=== PATIENT | male | born 1955 | race Caucasian/White ===

== ENCOUNTER 2020-07-31 12:46 | Emergency (ER) | payer BC, SELFPAY ==
--- NOTE | 2020-07-31 | XR_ITS ---
EXAMINATION: XR CHEST CLINICAL INFORMATION: Hypertension COMPARISON: None TECHNIQUE: 2 views of the chest were obtained. FINDINGS: The cardiac silhouette is upper normal in size. The thoracic aorta is tortuous and may be ectatic. Hilar and mediastinal contours are otherwise unremarkable. The lungs are clear. There is no pleural effusion or pneumothorax. There are degenerative changes of the spine. XR/XR chest 2V IMPRESSION: Upper normal-size cardiac silhouette. Tortuous and possibly ectatic thoracic aorta.
[2020-07-31 12:58] VITALS: BP 227/119; PULSE 59; RESP 18; TEMP 36.1; O2SAT 99; BMI 35.9
--- NOTE | 2020-07-31 13:09 | ECG_ITS ---
Test Reason : htn Blood Pressure : / mmHG Vent. Rate : 071 BPM Atrial Rate : 071 BPM P-R Int : 160 ms QRS Dur : 080 ms QT Int : 412 ms P-R-T Axes : 061 041 074 degrees QTc Int : 447 ms Normal sinus rhythm Normal ECG When compared with ECG of 23-DEC-2010 09:15, T wave amplitude has decreased in Lateral leads Referred By: Generic ED Physician Electronically Signed By:ARABELLA NOBLE
[2020-07-31 17:31] VITALS: BP 225/106; PULSE 65; RESP 16; TEMP 37; O2SAT 97
--- NOTE | 2020-07-31 18:00 | CT_ITS ---
EXAMINATION: CT HEAD WITHOUT CONTRAST CLINICAL INFORMATION: Hypertensive COMPARISON: None TECHNIQUE: Contiguous axial imaging was performed from the skull base to vertex without intravenous administration of contrast. This CT examination was performed using dose optimization techniques as appropriate, variously including the following: *Automated exposure control *Adjustment of mA and/or kV according to patient size (this includes techniques or standardized protocols for targeted exams where dose is matched to indication/reason for exam; i.e. extremities or head) *Use of iterative reconstruction technique DLP: 656 mGy-cm FINDINGS: There is no evidence of acute intracranial hemorrhage or territorial infarction. No abnormal mass effect or midline shift is seen. Muir to white matter differentiation is well preserved. No extra-axial fluid collections are identified. The ventricles are normal in size. There is no abnormal attenuation within the brain parenchyma. The osseous structures and soft tissues are normal. Tiny mucosal retention cyst of the left maxillary sinus is partially visualized. The mastoid air cells and visualized portions of the paranasal sinuses are otherwise well aerated. CT/CT head/brain wo con IMPRESSION: No acute intracranial pathology.
--- NOTE | 2020-07-31 18:03 | ED.GENADULT ---
HPI - General Adult General Chief complaint: General Medical Stated complaint: HBP Time Seen by Provider: 07/31/20 17:50 Source: patient Mode of arrival: ambulatory Limitations: no limitations History of Present Illness HPI narrative: Patient presents to ED for elevated blood pressure. Patient states left-sided headache for 3 months and this morning he went to his PCP and blood pressures over 200. Patient is compliant with his carvedilol and lisinopril. His PCP sent amlodipine to the pharmacy for him to start today but patient did not get in time. Patient denies any slurred speech, loss of vision, blurry vision, facial droop, paralysis of extremities, chest pain, shortness of breath, dizziness, or recent any head trauma. Related Data Home Medications Medication Instructions Recorded Confirmed carvedilol 25 mg tablet 25 mg PO BID 07/31/20 lisinopril 40 mg tablet 40 mg PO BID 07/31/20 pravastatin 40 mg tablet 40 mg PO DAILY 07/31/20 Previous Rx's Medication Instructions Recorded indomethacin 25 mg capsule 25 mg PO BID PRN 90 Days #180 cap 06/01/20 allopurinol 300 mg tablet 300 mg PO DAILY #30 tab 07/04/20 furosemide 20 mg tablet 20 mg PO DAILY 90 Days #90 tab 07/04/20 amlodipine 10 mg tablet 10 mg PO DAILY 30 Days #30 tab 07/31/20 hydralazine 25 mg tablet 25 mg PO TID 30 Days #90 tab 07/31/20 Allergies Allergy/AdvReac Type Severity Reaction Status Date / Time No Known Allergies Allergy Verified 07/31/20 09:51 Review of Systems Constitutional: Constitutional: Reports as per HPI, Reports no additional constitutional complaints and Reports headache(s) Eyes: Eyes: Reports as per HPI and Reports no additional eye complaints ENT: Reports system reviewed and no additional complaints, except as documented, Reports as per HPI and Reports headache(s) Cardiovascular: Cardiovascular: Reports as per HPI and Reports no additional cardiovascular complaints Respiratory: Respiratory: Reports as per HPI and Reports no additional respiratory complaints Gastrointestinal: Gastrointestinal: Reports as per HPI and Reports no additional gastrointestinal complaints Genitourinary: Genitourinary: Reports no additional male genitourinary complaints and Reports as per HPI Musculoskeletal: Musculoskeletal: Reports no additional musculoskeletal complaints and Reports as per HPI Neurologic: Reports system reviewed and no additional complaints, except as documented, Reports as per HPI and Reports headache(s) Psychiatric: Psychiatric: Reports no additional psychiatric complaints and Reports as per HPI ON LICENSE OF [facility] Past Medical History Medical History Afib Arthritis Headache Hypertension, essential Social History Social History Alcohol intake: never Smoked in Last 30 Days: No Advance Directives: No Advance Directives Information Provided: Yes Physical Exam Vital Signs: Vital Signs: Last Vital Signs Temp 98.7 F 07/31/20 19:32 Pulse 69 07/31/20 19:32 Resp 16 07/31/20 19:32 BP 155/97 H 07/31/20 19:32 Pulse Ox 97 07/31/20 19:32 Body Mass Index 35.9 Const: General: cooperative, healthy appearing, comfortable, no acute distress, well developed, alert, awake and Physically active HENMT: Head: Yes normal to inspection, Yes No palpable skull fracture present, Yes normocephalic, Yes atraumatic, No Acrocyanosis present, No Oliveira's sign, No contusion, No cranial bruits, No hematoma, No laceration, No occipital foramen tenderness, No palpable skull fracture, No raccoon eyes, No scalp tenderness, No Temporal artery tenderness present and No periorbital ecchymosis Eyes: Other: Negative photophobia General: appearance normal, both eyes and all related structures Neck: Neck: Yes normal visual inspection, Yes full ROM, Yes no lymphadenopathy, Yes no meningeal signs, Yes trachea midline, Yes supple and No tender Chest: Chest palpation & inspection: normal inspection of the chest and normal palpation of entire chest wall Breast/axilla inspection: normal inspection of the breasts Resp: Effort & Inspection: normal respiratory effort and able to speak in complete sentences Auscultation: clear to auscultation bilaterally Cardio: Jugular venous distension: no JVD Heart sounds: S1 normal heart sound present and S2 normal heart sound present GI: Inspection: Yes normal to inspection and No abdominal wall ecchymosis Palpation (GI): Soft to palpation, not firm, nontender, no guarding and not rigid : General: No CVA tenderness and Yes no CVA tenderness Back/Spine/Pelvis: Back: no CVA tenderness, No CVA tenderness and No back tenderness Skin: General skin exam: no rashes or lesions noted and elasticity normal Neuro: Other: Negative slurred speech. Negative for facial droop. Negative pronator drift. All extremity strength equal and 5+. Negative for any neuro deficit. Rapid hand movement and [id number] test is intact. Negative Romberg. General: patient oriented x3, gait normal, no meningeal signs and CN's II-XI intact bilaterally Cranial nerves: Yes CN's II-XII intact bilaterally Course Course Course Narrative: Patient will have labs to rule out hypertensive emergency. Troponin will be sent, chemistry will be evaluated for renal function, and patient will be sent for head CT to make sure there is no bleed or stroke. Negative for any neuro deficit. Reevaluation(s) Reevaluation #1: Patient's blood pressure improved with clonidine. Negative for any neuro deficit. Head CT scan negative for any stroke or bleed. Troponins not increased by 50%. Headache improved after blood pressure is controlled. Negative for any kidney injury. Time: 22:[address] [facility] Narrative Medical decision making narrative: Hypertension Lab Data Result diagrams: 07/31/20 17:57 07/31/20 17:57 Labs: Lab Results 07/31/20 07/31/20 07/31/20 Range/Units 17:57 17:57 17:57 WBC 5.3 (4.8-10.8) X10*3/uL RBC 4.05 L (4.60-5.80) X10*6/uL Hgb 13.4 L (14.0-18.0) g/dl Hct 39.0 L (42-52) % MCV 96.3 (80-98) fL MCH 33.1 H (27.0-33.0) pg MCHC 34.4 (31.0-36.0) g/dl RDW 12.3 (11.0-16.0) % Plt Count 149 L (160-400) X10*3/uL MPV 9.8 (9.4-12.4) fL Immature Gran % (Auto) 0.2 (0.0-0.4) % Neut % (Auto) 56.2 (45-73) % Lymph % (Auto) 34.0 (20-40) % Sevier % (Auto) 7.9 (2-11) % Eos % (Auto) 1.3 (0-4) % Baso % (Auto) 0.4 (0-2) % Lymph # (Auto) 1.8 (1.2-4.9) X10*3/uL Sevier # (Auto) 0.4 (0.1-1.2) X10*3/uL Eos # (Auto) 0.1 (0.0-0.4) X10*3/uL Baso # (Auto) 0.0 (0.0-0.2) X10*3/uL Abs Immat Gran (auto) 0.01 (0.00-0.03) X10*3/uL Absolute Neuts (auto) 3.0 (2.0-8.3) X10*3/uL Absolute Nucleated RBC 0.000 (0.0-0.012) X10*3/uL Nucleated RBC % (auto) 0.0 (0.0-0.2) /100WBC PT 12.0 (10.8-13.0) SEC INR 1.0 (0.9-1.1) APTT 35.4 (24.1-38.0) SEC Hold Blue Top SEE NOTE Sodium 143 (135-145) mmol/L Potassium 3.5 (3.3-5.1) mmol/l Chloride 104 (96-108) mmol/L Carbon Dioxide 32 H (22-29) mmol/L Anion Gap 11 L (12-20) BUN 18 H (9-16) mg/dL Creatinine 1.28 (0.5-1.4) mg/dL Estim Creat Clear Calc 66.9 Estimated GFR 57 Random Glucose 124 H (60-115) mg/dL Calcium 9.0 (8.4-10.2) mg/dL Troponin I High Sens (<3.5-35.0) ng/L Urine Color Urine Appearance Urine pH (5.0-8.0) Ur Specific Wadsworth (1.005-1.025) Urine Protein (NEG-TRACE) MG/DL Urine Glucose (UA) (NEG) MG/DL Urine Ketones (NEG) MG/DL Urine Blood (NEG) Urine Nitrite (NEG) Ur Leukocyte Esterase (NEG) Urine RBC (0) /HPF Urine WBC (0-4) /HPF Ur Squamous Epith Cells /LPF Urine Bacteria /LPF 1207/31/20 07/31/20 Range/Units 17:57 18:09 21:08 WBC (4.8-10.8) X10*3/uL RBC (4.60-5.80) X10*6/uL Hgb (14.0-18.0) g/dl Hct (42-52) % MCV (80-98) fL MCH (27.0-33.0) pg MCHC (31.0-36.0) g/dl RDW (11.0-16.0) % Plt Count (160-400) X10*3/uL MPV (9.4-12.4) fL Immature Gran % (Auto) (0.0-0.4) % Neut % (Auto) (45-73) % Lymph % (Auto) (20-40) % Sevier % (Auto) (2-11) % Eos % (Auto) (0-4) % Baso % (Auto) (0-2) % Lymph # (Auto) (1.2-4.9) X10*3/uL Sevier # (Auto) (0.1-1.2) X10*3/uL Eos # (Auto) (0.0-0.4) X10*3/uL Baso # (Auto) (0.0-0.2) X10*3/uL Abs Immat Gran (auto) (0.00-0.03) X10*3/uL Absolute Neuts (auto) (2.0-8.3) X10*3/uL Absolute Nucleated RBC (0.0-0.012) X10*3/uL Nucleated RBC % (auto) (0.0-0.2) /100WBC PT (10.8-13.0) SEC INR (0.9-1.1) APTT (24.1-38.0) SEC Hold Blue Top Sodium (135-145) mmol/L Potassium (3.3-5.1) mmol/l Chloride (96-108) mmol/L Carbon Dioxide (22-29) mmol/L Anion Gap (12-20) BUN (9-16) mg/dL Creatinine (0.5-1.4) mg/dL Estim Creat Clear Calc Estimated GFR Random Glucose (60-115) mg/dL Calcium (8.4-10.2) mg/dL Troponin I High Sens 12.6 13.8 (<3.5-35.0) ng/L Urine Color STRAW Urine Appearance CLEAR Urine pH 7.5 (5.0-8.0) Ur Specific Wadsworth 1.010 (1.005-1.025) Urine Protein NEG (NEG-TRACE) MG/DL Urine Glucose (UA) NEG (NEG) MG/DL Urine Ketones NEG (NEG) MG/DL Urine Blood TRACE (NEG) Urine Nitrite NEG (NEG) Ur Leukocyte Esterase NEG (NEG) Urine RBC 0-2 (0) /HPF Urine WBC 0 (0-4) /HPF Ur Squamous Epith Cells NONE /LPF Urine Bacteria NONE /LPF ECG Data Interpretation: Normal sinus rhythm. Normal EKG. Ventricular rate 71. Pr interval 180. QRS 80. QTC 447. Negative STEMI Discharge Plan Discharge Clinical Impression: Hypertension, essential Patient Disposition: Home, Self-Care Instructions: Hypertension (ED) Additional Instructions: Return to the ED immediately for any chest pain, shortness of breath, loss of vision, slurred speech, weakness of extremities, numbness, dizziness, worsening headache, or any other concerning symptoms. Prescriptions: No Action indomethacin 25 mg capsule 25 mg PO BID PRN (Reason: pain) 90 Days Qty: 180 RF: 1 allopurinol 300 mg tablet 300 mg PO DAILY Qty: 30 RF: 2 furosemide 20 mg tablet 20 mg PO DAILY 90 Days Qty: 90 RF: 1 lisinopril 40 mg tablet 40 mg PO BID RF: 0 pravastatin 40 mg tablet 40 mg PO DAILY RF: 0 carvedilol 25 mg tablet 25 mg PO BID RF: 0 hydralazine 25 mg tablet 25 mg PO TID 30 Days Qty: 90 RF: 0 amlodipine 10 mg tablet 10 mg PO DAILY 30 Days Qty: 30 RF: 0 Referrals: Maged Coughlin, HIGH [employer]CHO[employer]AGE [employer]UTOR-BC [Primary Care Provider] - 2 days (Elevated high blood pressure. Head CT scan negative for stroke. Troponins were negative. Kidney function normal.) Interventions: ED Discharge Assessment Last Done: 07/31/20 22:43 Discharge Date/Time: 07/31/20 22:46 Print Language: Belarusian
[2020-07-31 18:09] LABS: MANUAL DIFF FLAG NO
[2020-07-31 18:11] VITALS: BP 210/113; PULSE 68
[2020-07-31] MEDS: cloNIDine HCL 0.2 MG TABLET PO (18:11)
[2020-07-31 18:13] LABS: Basophils Percent Auto 0.4 % (0-2); Eosinophils Absolute Auto 0.1 X10*3/uL (0.0-0.4); Eosinophils Percent Auto 1.3 % (0-4); Hemoglobin 13.4 g/dl (14.0-18.0); Imm Gran Abs Auto 0.01 X10*3/uL (0.00-0.03); Imm Gran Pct Auto 0.2 % (0.0-0.4); Lymphocytes Absolute Auto 1.8 X10*3/uL (1.2-4.9); Mean Corpuscular HGB Conc 34.4 g/dl (31.0-36.0); Mean Corpuscular Hemoglobin 33.1 pg (27.0-33.0); Mean Corpuscular Volume 96.3 fL (80-98); Mean Platelet Volume 9.8 fL (9.4-12.4); Monocytes Absolute Auto 0.4 X10*3/uL (0.1-1.2); Monocytes Percent Auto 7.9 % (2-11); Neutrophils Percent Auto 56.2 % (45-73); Platelet Count 149 X10*3/uL (160-400); Red Blood Count 4.05 X10*6/uL (4.60-5.80); Red Cell Distribution Width 12.3 % (11.0-16.0); White Blood Count 5.3 X10*3/uL (4.8-10.8)
[2020-07-31 18:15] LABS: Partial Thromboplastin Time 35.4 SEC (24.1-38.0)
[2020-07-31 18:16] LABS: Glucose Urine UA NEG (NEG); Leukocyte Esterase Urine NEG (NEG); Nitrite Urine NEG (NEG); PH 7.5 (5.0-8.0); Urine Blood TRACE (NEG); Urine Ketones NEG (NEG); Urine Protein NEG (NEG-TRACE)
[2020-07-31 18:17] LABS: Appearance Urine CLEAR; Color Urine STRAW
[2020-07-31 18:22] LABS: RBC Urine 0-2 /HPF (0); WBC Urine 0 /HPF (0-4)
[2020-07-31 18:30] LABS: Anion Gap 11 (12-20); Blood Urea Nitrogen 18 mg/dL (9-16); Carbon Dioxide 32 mmol/L (22-29); Chloride 104 mmol/L (96-108); Creatinine Clr Calc Pharmacy 66.9; Estimated Glomerular Filt Rate 57; Glucose Random 124 mg/dL (60-115); Potassium 3.5 mmol/l (3.3-5.1); Sodium 143 mmol/L (135-145)
[2020-07-31 18:37] LABS: Troponin-I High Sensitivity 12.6 ng/L (<3.5-35.0)
[2020-07-31 19:32] VITALS: BP 155/97; PULSE 69; RESP 16; TEMP 37.1; O2SAT 97
[2020-07-31 21:58] LABS: Troponin-I High Sensitivity 13.8 ng/L (<3.5-35.0)
== END 2020-07-31 22:46 | disposition home or self-care (01) ==
PROVIDERS: Physician Assistant; Emergency Provider Emergency Medicine; PCP Nurse Practitioner Family
DX: R51.9 Headache, unspecified (principal); I10 Essential (primary) hypertension; Z79.899 Other long term (current) drug therapy
CPT/HCPCS: 36415; 70450; 71046; 80048; 81001; 84484; 85025; 85610; 85730; 93005; 99284

== ENCOUNTER 2020-11-13 11:59 | Outpatient (REF) | payer BC, SELFPAY ==
[2020-11-13 13:50] LABS: MANUAL DIFF FLAG NO
[2020-11-13 13:53] LABS: Basophils Percent Auto 0.4 % (0-2); Eosinophils Absolute Auto 0.1 X10*3/uL (0.0-0.4); Eosinophils Percent Auto 1.2 % (0-4); Hematocrit 36.9 % (42-52); Imm Gran Abs Auto 0.01 X10*3/uL (0.00-0.03); Imm Gran Pct Auto 0.2 % (0.0-0.4); Lymphocytes Absolute Auto 1.8 X10*3/uL (1.2-4.9); Lymphocytes Percent Auto 35.6 % (20-40); Mean Corpuscular HGB Conc 35.2 g/dl (31.0-36.0); Mean Corpuscular Hemoglobin 33.7 pg (27.0-33.0); Mean Corpuscular Volume 95.6 fL (80-98); Mean Platelet Volume 10.5 fL (9.4-12.4); Monocytes Absolute Auto 0.5 X10*3/uL (0.1-1.2); Monocytes Percent Auto 9.6 % (2-11); Neutrophils Absolute Auto 2.6 X10*3/uL (2.0-8.3); Platelet Count 157 X10*3/uL (160-400); Red Blood Count 3.86 X10*6/uL (4.60-5.80); Red Cell Distribution Width 12.8 % (11.0-16.0); White Blood Count 4.9 X10*3/uL (4.8-10.8)
[2020-11-13 14:15] LABS: Alanine Aminotransferase 19 U/L (0-40); Albumin Level 4.4 g/dL (3.5-5.0); Alkaline Phosphatase 68 U/L (39-117); Anion Gap 13 (12-20); Aspartate Amino Transferase 15 U/L (5-37); Bilirubin Total 0.9 mg/dL (0.0-1.0); Blood Urea Nitrogen 20 mg/dL (9-16); Calcium 9.1 mg/dL (8.4-10.2); Carbon Dioxide 28 mmol/L (22-29); Chloride 104 mmol/L (96-108); Cholesterol 175 mg/dL; Estimated Glomerular Filt Rate 54; Glucose Fasting 128 mg/dL (60-99); HDL Cholesterol 50 mg/dL; LDL Cholesterol Calculated 101 mg/dl; Potassium 3.9 mmol/L (3.3-5.1); Sodium 141 mmol/L (135-145); Total Protein 6.9 g/dL (6.5-8.0); Triglycerides 121 mg/dL
[2020-11-13 14:28] LABS: Troponin-I High Sensitivity 5.5 ng/L (<3.5-35.0)
== END 2020-11-13 12:00 | disposition home or self-care (01) ==
LOC: HO.HMGCLDS 11:59
PROVIDERS: Family Medicine; PCP Nurse Practitioner Family; Visit Provider Nurse Practitioner Family
DX: Z00.00 Encounter for general adult medical examination without abnormal findings (principal); I10 Essential (primary) hypertension
CPT/HCPCS: 36415; 80048; 80053; 80061; 84443; 84484; 85025

== ENCOUNTER 2020-11-14 11:03 | Outpatient (REF) | payer BC, SELFPAY ==
[2020-11-14 14:26] LABS: Estimated Average Glucose 117 mg/dL; Hemoglobin A1c % 5.7 %
== END 2020-11-14 11:04 | disposition home or self-care (01) ==
LOC: HO.HMGCLDS 11:03
PROVIDERS: Visit Provider Nurse Practitioner Family
DX: R73.01 Impaired fasting glucose (principal)
CPT/HCPCS: 36415; 83036

== ENCOUNTER 2021-12-06 10:11 | Outpatient (REF) | payer BC, SELFPAY ==
[2021-12-06 11:31] LABS: Estimated Average Glucose 128 mg/dL; Hemoglobin A1c % 6.1 %
[2021-12-06 12:03] LABS: Alanine Aminotransferase 25 U/L (0-40); Albumin Level 4.3 g/dL (3.5-5.0); Alkaline Phosphatase 46 U/L (39-117); Anion Gap 13 (12-20); Aspartate Amino Transferase 23 U/L (5-37); Bilirubin Total 0.9 mg/dL (0.0-1.0); Blood Urea Nitrogen 24 mg/dL (9-16); Calcium 9.6 mg/dL (8.4-10.2); Carbon Dioxide 28 mmol/L (22-29); Chloride 104 mmol/L (96-108); Cholesterol 164 mg/dL; Estimated Glomerular Filt Rate 41; Glucose Fasting 134 mg/dL (60-99); HDL Cholesterol 46 mg/dL; LDL Cholesterol Calculated 98 mg/dl; Potassium 3.5 mmol/L (3.3-5.1); Sodium 141 mmol/L (135-145); Total Protein 6.7 g/dL (6.5-8.0); Triglycerides 103 mg/dL
== END 2021-12-06 10:12 | disposition home or self-care (01) ==
LOC: HO.HMGCLDS 10:11
PROVIDERS: PCP Nurse Practitioner Family; Visit Provider Nurse Practitioner Family
DX: R73.01 Impaired fasting glucose (principal); I10 Essential (primary) hypertension
CPT/HCPCS: 36415; 80053; 80061; 83036

== ENCOUNTER 2021-12-10 10:43 | Outpatient (REF) | payer BC, SELFPAY ==
[2021-12-10 11:49] LABS: Blood Urea Nitrogen 25 mg/dL (9-16); Estimated Glomerular Filt Rate 41
== END 2021-12-10 10:44 | disposition home or self-care (01) ==
LOC: HO.HMGCLDS 10:43
PROVIDERS: PCP Nurse Practitioner Family; Visit Provider Nurse Practitioner Family
DX: R79.89 Other specified abnormal findings of blood chemistry (principal)
CPT/HCPCS: 36415; 82565; 84520

== ENCOUNTER 2021-12-26 11:08 | Outpatient (REF) | payer BC, SELFPAY ==
[2021-12-26 13:58] LABS: MANUAL DIFF FLAG NO
[2021-12-26 14:01] LABS: Basophils Percent Auto 0.4 % (0-2); Eosinophils Absolute Auto 0.1 X10*3/uL (0.0-0.4); Eosinophils Percent Auto 1.1 % (0-4); Hematocrit 35.5 % (42.0-52.0); Hemoglobin 12.1 g/dl (14.0-18.0); Imm Gran Abs Auto 0.01 X10*3/uL (0.00-0.03); Imm Gran Pct Auto 0.2 % (0.0-0.4); Lymphocytes Absolute Auto 1.5 X10*3/uL (1.2-4.9); Lymphocytes Percent Auto 32.8 % (20-40); Mean Corpuscular HGB Conc 34.1 g/dl (31.0-36.0); Mean Corpuscular Hemoglobin 33.1 pg (27.0-33.0); Mean Platelet Volume 9.9 fL (9.4-12.4); Monocytes Absolute Auto 0.4 X10*3/uL (0.1-1.2); Monocytes Percent Auto 7.8 % (2-11); Neutrophils Absolute Auto 2.7 x10*3/uL (2.0-8.3); Neutrophils Percent Auto 57.7 % (45-73); Platelet Count 160 X10*3/uL (160-400); Red Blood Count 3.66 X10*6/uL (4.60-5.80); Red Cell Distribution Width 12.4 % (11.0-16.0); White Blood Count 4.6 X10*3/uL (4.8-10.8)
[2021-12-26 14:03] LABS: Appearance Urine CLEAR; Color Urine YELLOW; Glucose Urine UA NEG (NEG); Leukocyte Esterase Urine NEG (NEG); Nitrite Urine NEG (NEG); Specific Gravity - Urine <= 1.005 (1.005-1.025); Urine Blood NEG (NEG); Urine Ketones NEG (NEG); Urine Protein NEG (NEG-TRACE)
[2021-12-26 14:13] LABS: RBC Urine 0-2 /HPF (0); WBC Urine 0-2 /HPF (0-4)
[2021-12-26 14:17] LABS: Albumin Level 4.2 g/dL (3.5-5.0); Anion Gap 11 (12-20); Blood Urea Nitrogen 26 mg/dL (9-16); Calcium 9.4 mg/dL (8.4-10.2); Carbon Dioxide 27 mmol/L (22-29); Chloride 104 mmol/L (96-108); Estimated Glomerular Filt Rate 38; Magnesium 2.3 mg/dL (1.6-2.6); Phosphorus 3.2 mg/dL (2.7-4.5); Potassium 4.1 mmol/L (3.3-5.1); Sodium 138 mmol/L (135-145)
[2021-12-26 14:32] LABS: Vitamin D 25-OH Total 23.9 ng/mL (>30)
[2021-12-26 14:34] LABS: Creatinine Urine 62.13 mg/dL; Total Protein Urine Random < 7 mg/dL (<12)
[2021-12-27 04:51] LABS: HBS Num1 18.88 mIU/mL (0-7.99); HBc Num1 0.15 S/CO (0.00-0.79); HBsAGNum1 0.18 S/CO (0.00-0.99); Hepatitis B Core Antibody Nonreactive (Nonreactive); Hepatitis B Surface Antigen Negative (Negative); ~HepC Num1 0.16 S/CO (0.00-0.79); ~Hepatitis B Surface Antibody REACTIVE (Nonreactive); ~Hepatitis C Antibody Nonreactive (Nonreactive)
[2021-12-27 14:21] LABS: Calcium (PTHI) 9.3 mg/dL (8.6-10.3); PTHI 85 pg/mL (16-77)
[2021-12-27 17:21] LABS: Complement C3 69 mg/dL (82-185)
[2021-12-30 15:21] LABS: Prot Elec - Albumin 4.5 g/dL (3.8-4.8); Prot Elec - Alpha1 0.3 g/dL (0.2-0.3); Prot Elec - Alpha2 0.5 g/dL (0.5-0.9); Prot Elec - Beta 1 0.4 g/dL (0.4-0.6); Prot Elec - Beta 2 0.3 g/dL (0.2-0.5); Prot Elec - Gamma 0.9 g/dL (0.8-1.7); Prot Elec - Total Protein 6.8 g/dL (6.1-8.1)
[2021-12-31 23:52] LABS: Anti Nuclear Antibody Screen POSITIVE (NEGATIVE)
[2022-01-02 13:12] LABS: Kappa, Serum 214 mg/dL (176-443); Kappa/Lambda Ratio, Serum 1.48 (1.29-2.55); Lambda, Serum 145 mg/dL (91-240)
== END 2021-12-26 11:09 | disposition home or self-care (01) ==
LOC: HO.HMGCLDS 11:08
PROVIDERS: PCP Nurse Practitioner Family; Visit Provider Internal Medicine Nephrology
DX: I12.9 Hypertensive chronic kidney disease with stage 1 through stage 4 chronic kidney disease, or unspecified chronic kidney disease (principal); N18.32 Chronic kidney disease, stage 3b
CPT/HCPCS: 36415; 80051; 81001; 82040; 82043; 82306; 82310; 82565; 83735; 83883; 83970; 84100; 84156; 84165; 84520; 85025; 86038; 86039; 86160; 86704; 86706; 86803; 87086; 87340

== ENCOUNTER 2022-01-02 14:51 | Outpatient (REF) | payer BC, SELFPAY ==
[2022-01-02 16:22] LABS: MANUAL DIFF FLAG NO
[2022-01-02 16:24] LABS: Basophils Percent Auto 0.2 % (0-2); Eosinophils Absolute Auto 0.1 X10*3/uL (0.0-0.4); Hematocrit 34.3 % (42.0-52.0); Hemoglobin 11.6 g/dl (14.0-18.0); Imm Gran Abs Auto 0.01 X10*3/uL (0.00-0.03); Imm Gran Pct Auto 0.2 % (0.0-0.4); Lymphocytes Absolute Auto 1.3 X10*3/uL (1.2-4.9); Lymphocytes Percent Auto 25.9 % (20-40); Mean Corpuscular HGB Conc 33.8 g/dl (31.0-36.0); Mean Corpuscular Volume 97.7 fL (80.0-98.0); Mean Platelet Volume 10.2 fL (9.4-12.4); Monocytes Absolute Auto 0.4 X10*3/uL (0.1-1.2); Monocytes Percent Auto 8.4 % (2-11); Neutrophils Absolute Auto 3.2 x10*3/uL (2.0-8.3); Neutrophils Percent Auto 64.3 % (45-73); Platelet Count 146 X10*3/uL (160-400); Red Blood Count 3.51 X10*6/uL (4.60-5.80); Red Cell Distribution Width 12.5 % (11.0-16.0)
[2022-01-02 16:40] LABS: Iron 126 mcg/dL (45-160); Percent Iron Saturation 43 % (15-50); Total Iron Binding Capacity 292 mcg/dL (228-428); Unsaturated Iron Binding 166 ug/dL
[2022-01-02 17:00] LABS: Ferritin 110 ng/mL (20-250)
[2022-01-02 17:15] LABS: Folate 9.6 ng/mL (> or = 4.0); Vitamin B12 207 pg/mL (200-900)
== END 2022-01-02 14:52 | disposition home or self-care (01) ==
LOC: HO.HMGCLDS 14:51
PROVIDERS: PCP Nurse Practitioner Family; Visit Provider Nurse Practitioner Family
DX: D64.9 Anemia, unspecified (principal)
CPT/HCPCS: 36415; 82607; 82728; 82746; 83540; 85025

== ENCOUNTER 2022-01-03 16:41 | Outpatient (REF) | payer BC, SELFPAY ==
[2022-01-04 07:48] LABS: FIT Int Ctl YES; FIT1 NEGATIVE (NEGATIVE); FIT2 NEGATIVE (NEGATIVE)
== END 2022-01-03 16:42 | disposition home or self-care (01) ==
LOC: HO.LNP 16:41
PROVIDERS: Visit Provider Nurse Practitioner Family
DX: D64.9 Anemia, unspecified (principal)
CPT/HCPCS: 82274

== ENCOUNTER 2022-03-03 13:48 | Outpatient (REF) | payer BC, SELFPAY ==
[2022-03-03 14:56] LABS: MANUAL DIFF FLAG NO
[2022-03-03 15:06] LABS: Basophils Percent Auto 0.4 % (0-2); Eosinophils Absolute Auto 0.1 X10*3/uL (0.0-0.4); Eosinophils Percent Auto 0.9 % (0-4); Hemoglobin 11.7 g/dl (14.0-18.0); Imm Gran Abs Auto 0.02 X10*3/uL (0.00-0.03); Imm Gran Pct Auto 0.4 % (0.0-0.4); Lymphocytes Absolute Auto 1.9 X10*3/uL (1.2-4.9); Lymphocytes Percent Auto 34.8 % (20-40); Mean Corpuscular HGB Conc 34.4 g/dl (31.0-36.0); Mean Corpuscular Hemoglobin 33.2 pg (27.0-33.0); Mean Corpuscular Volume 96.6 fL (80.0-98.0); Mean Platelet Volume 10.1 fL (9.4-12.4); Monocytes Absolute Auto 0.5 X10*3/uL (0.1-1.2); Monocytes Percent Auto 8.5 % (2-11); Platelet Count 158 X10*3/uL (160-400); Red Blood Count 3.52 X10*6/uL (4.60-5.80); White Blood Count 5.4 X10*3/uL (4.8-10.8)
[2022-03-03 15:56] LABS: Folate 16.1 ng/mL (> or = 4.0); Vitamin B12 284 pg/mL (200-900)
== END 2022-03-03 13:49 | disposition home or self-care (01) ==
LOC: HO.HMGCLDS 13:48
PROVIDERS: PCP Nurse Practitioner Family; Visit Provider Nurse Practitioner Family
DX: D64.9 Anemia, unspecified (principal)
CPT/HCPCS: 36415; 82607; 82746; 85025

== ENCOUNTER 2022-03-20 11:02 | Outpatient (REF) | payer BC, SELFPAY ==
[2022-03-20 14:05] LABS: Estimated Average Glucose 128 mg/dL; Hemoglobin A1c % 6.1 %
[2022-03-20 14:13] LABS: Alanine Aminotransferase 26 U/L (0-40); Albumin Level 4.4 g/dL (3.5-5.0); Alkaline Phosphatase 41 U/L (39-117); Anion Gap 15 (12-20); Aspartate Amino Transferase 19 U/L (5-37); Bilirubin Total 0.8 mg/dL (0.0-1.0); Blood Urea Nitrogen 25 mg/dL (9-16); Calcium 9.2 mg/dL (8.4-10.2); Carbon Dioxide 23 mmol/L (22-29); Chloride 107 mmol/L (96-108); Estimated Glomerular Filt Rate 36; Glucose Fasting 131 mg/dL (60-99); Potassium 4.2 mmol/L (3.3-5.1); Sodium 141 mmol/L (135-145); Total Protein 6.8 g/dL (6.5-8.0)
[2022-03-20 14:29] LABS: TSH reflex Free T4 2.25 uIU/mL (0.32-4.0)
[2022-03-20 14:33] LABS: Appearance Urine Clear; Color Urine Yellow; Glucose Urine UA Negative (Negative); Leukocyte Esterase Urine Negative (Negative); Nitrite Urine Negative (Negative); Specific Gravity - Urine 1.015 (1.005-1.025); Urine Blood Negative (Negative); Urine Ketones Negative (Negative); Urine Protein Negative (Neg-Trace)
== END 2022-03-20 11:03 | disposition home or self-care (01) ==
LOC: HO.HMGCLDS 11:02
PROVIDERS: PCP Nurse Practitioner Family; Visit Provider Family Medicine
DX: Z00.00 Encounter for general adult medical examination without abnormal findings (principal); R73.01 Impaired fasting glucose; R20.0 Anesthesia of skin; R20.2 Paresthesia of skin
CPT/HCPCS: 36415; 80053; 81003; 83036; 84443

== ENCOUNTER 2022-04-16 09:18 | Outpatient (REF) | payer BC, SELFPAY ==
[2022-04-18 04:51] LABS: Prolactin 9.6 ng/mL (2.0-18.0)
== END 2022-04-16 09:19 | disposition home or self-care (01) ==
LOC: HO.LAB 09:18
PROVIDERS: PCP Nurse Practitioner Family; Visit Provider Psychiatry & Neurology Neurology
DX: D35.2 Benign neoplasm of pituitary gland (principal)
CPT/HCPCS: 36415; 84146

== ENCOUNTER 2022-04-22 07:24 | Outpatient (REF) | payer BC, SELFPAY ==
[2022-04-22 11:46] LABS: Appearance Urine Clear; Color Urine Yellow; Glucose Urine UA Negative (Negative); Leukocyte Esterase Urine Negative (Negative); Nitrite Urine Negative (Negative); PH 5.5 (5.0-9.0); Specific Gravity - Urine 1.015 (1.005-1.025); Urine Blood Negative (Negative); Urine Ketones Negative (Negative); Urine Protein Negative (Neg-Trace)
[2022-04-22 11:51] LABS: MANUAL DIFF FLAG NO
[2022-04-22 12:07] LABS: Basophils Percent Auto 0.2 % (0-2); Eosinophils Percent Auto 0.7 % (0-4); Hematocrit 33.1 % (42.0-52.0); Hemoglobin 11.2 g/dl (14.0-18.0); Imm Gran Abs Auto 0.01 X10*3/uL (0.00-0.03); Imm Gran Pct Auto 0.2 % (0.0-0.4); Lymphocytes Absolute Auto 1.8 X10*3/uL (1.2-4.9); Lymphocytes Percent Auto 33.5 % (20-40); Mean Corpuscular HGB Conc 33.8 g/dl (31.0-36.0); Mean Corpuscular Hemoglobin 33.6 pg (27.0-33.0); Mean Corpuscular Volume 99.4 fL (80.0-98.0); Mean Platelet Volume 10.3 fL (9.4-12.4); Monocytes Absolute Auto 0.5 X10*3/uL (0.1-1.2); Monocytes Percent Auto 8.6 % (2-11); Neutrophils Absolute Auto 3.1 x10*3/uL (2.0-8.3); Neutrophils Percent Auto 56.8 % (45-73); Platelet Count 150 X10*3/uL (160-400); Red Blood Count 3.33 X10*6/uL (4.60-5.80); Red Cell Distribution Width 13.2 % (11.0-16.0); White Blood Count 5.5 X10*3/uL (4.8-10.8)
[2022-04-22 12:45] LABS: Alanine Aminotransferase 25 U/L (0-40); Albumin Level 4.3 g/dL (3.5-5.0); Alkaline Phosphatase 39 U/L (39-117); Anion Gap 16 (12-20); Aspartate Amino Transferase 18 U/L (5-37); Bilirubin Total 0.8 mg/dL (0.0-1.0); Blood Urea Nitrogen 30 mg/dL (9-16); Calcium 9.6 mg/dL (8.4-10.2); Carbon Dioxide 24 mmol/L (22-29); Chloride 105 mmol/L (96-108); Cholesterol 158 mg/dL; Estimated Glomerular Filt Rate 38; Glucose Fasting 143 mg/dL (60-99); HDL Cholesterol 43 mg/dL; LDL Cholesterol Calculated 92 mg/dl; Potassium 4.1 mmol/L (3.3-5.1); Sodium 141 mmol/L (135-145); Total Protein 6.5 g/dL (6.5-8.0); Triglycerides 116 mg/dL
== END 2022-04-22 07:25 | disposition home or self-care (01) ==
LOC: HO.HMGCLDS 07:24
PROVIDERS: PCP Nurse Practitioner Family; Visit Provider Nurse Practitioner Family
DX: I10 Essential (primary) hypertension (principal); R79.89 Other specified abnormal findings of blood chemistry; H53.8 Other visual disturbances
CPT/HCPCS: 36415; 80053; 80061; 81003; 84443; 85025

== ENCOUNTER 2022-04-29 09:16 | Outpatient (REF) | payer BC, SELFPAY ==
[2022-04-29 11:32] LABS: Immature Retic Fraction 12.1 % (2.3-13.4); Retic HGB Equivalent 38.8 pg (30.0-35.0); Reticulocyte Percent 2.3 % (0.5-1.8); Reticulocytes Absolute 0.076 X10*6/uL (0.026-0.095)
[2022-04-29 11:50] LABS: Iron 142 mcg/dL (45-160); Percent Iron Saturation 46 % (15-50); Total Iron Binding Capacity 306 mcg/dL (228-428); Unsaturated Iron Binding 164 ug/dL
[2022-04-29 12:12] LABS: Ferritin 134 ng/mL (20-250)
[2022-04-29 12:32] LABS: Folate 15.9 ng/mL (> or = 4.0); Vitamin B12 222 pg/mL (200-900)
== END 2022-04-29 09:17 | disposition home or self-care (01) ==
LOC: HO.HMGCLDS 09:16
PROVIDERS: PCP Nurse Practitioner Family; Visit Provider Nurse Practitioner Family
DX: D64.9 Anemia, unspecified (principal)
CPT/HCPCS: 36415; 82607; 82728; 82746; 83540; 85045

== ENCOUNTER → 2022-07-02 13:05 | Outpatient (BNVA) | payer BC, SELFPAY | PROVIDERS: PCP Nurse Practitioner Family; Referring Provider Nurse Practitioner Family; Visit Provider Internal Medicine Cardiovascular Disease | DX: I48.0 Paroxysmal atrial fibrillation (principal); I10 Essential (primary) hypertension; R06.81 Apnea, not elsewhere classified | CPT/HCPCS: 93005 ==

== ENCOUNTER → 2022-07-15 10:04 | Outpatient (REF) | payer BC, SELFPAY ==
--- NOTE | 2022-07-15 10:10 | HM_ITS ---
Conclusion: 1. Patient was monitored for total period of 14 days and 19 hours 2. Baseline was normal sinus rhythm with average heart of 75 beats per minute 3. Total of 8145 PACs accounting for 0.96% of total beats account for occasional PACs 4. Very rare PVCs noted 5. No significant pauses or bradycardia noted 6. One of the patient reported events correlated with sinus tachycardia MTDD
--- NOTE | 2022-07-15 10:10 | CA_ITS ---
Acquisition Time: 2022-07-15 10:33:31 Total Exercise Time: 00:06:00 Test Indications: Dyspnea AFIB Medications: SEE H Protocol: KONSTANTIN Max HR: 151 BPM 98% of Pred: 154 BPM Max BP: 194/098 mmHG Max Work Load: 7.0 METS Exercise stress test with exercise 6 min of Konstantin protocol, achieving 98% MPHR, 7 METs, with fatigue and request to stop, without anginal symptoms, with isolated PAC and one multifocal ventricular cuplet, with hypertensive response to exercise with max BP 190/104, without EKG changes meeting criteria for ischemia. In recovery BP returned to near baseline. Test reviewed with Dr Harvey. Referred By: Alverto Gray Overread By: ADAN COLLINS
== END ==
LOC: HO.CARD 10:04
PROVIDERS: PCP Nurse Practitioner Family; Visit Provider Internal Medicine Cardiovascular Disease
DX: I48.0 Paroxysmal atrial fibrillation (principal)
CPT/HCPCS: 93017; 93246

== ENCOUNTER → 2022-07-30 09:08 | Outpatient (REF) | payer BC, SELFPAY | LOC: HO.SL 09:08 | PROVIDERS: Visit Provider Internal Medicine Cardiovascular Disease | DX: G47.33 Obstructive sleep apnea (adult) (pediatric) (principal); I48.0 Paroxysmal atrial fibrillation; I10 Essential (primary) hypertension | CPT/HCPCS: 95806 ==

== ENCOUNTER → 2022-08-15 10:41 | Outpatient (BNVA) | payer BC, SELFPAY | PROVIDERS: PCP Nurse Practitioner Family; Referring Provider Nurse Practitioner Family; Visit Provider Internal Medicine Cardiovascular Disease | DX: Z13.89 Encounter for screening for other disorder (principal) ==

== ENCOUNTER → 2022-09-11 15:38 | Outpatient (BNVA) | payer BC, SELFPAY | PROVIDERS: PCP Nurse Practitioner Family; Visit Provider Internal Medicine | DX: Z13.89 Encounter for screening for other disorder (principal) ==

== ENCOUNTER 2022-10-07 10:00 | Outpatient (REF) | payer BC, SELFPAY ==
[2022-10-07 11:39] LABS: MANUAL DIFF FLAG NO
[2022-10-07 11:51] LABS: Basophils Percent Auto 0.4 % (0-2); Eosinophils Absolute Auto 0.1 X10*3/uL (0.0-0.4); Eosinophils Percent Auto 0.9 % (0-4); Hematocrit 33.4 % (42.0-52.0); Hemoglobin 11.3 g/dl (14.0-18.0); Imm Gran Abs Auto 0.01 X10*3/uL (0.00-0.03); Imm Gran Pct Auto 0.2 % (0.0-0.4); Lymphocytes Absolute Auto 1.7 X10*3/uL (1.2-4.9); Lymphocytes Percent Auto 31.7 % (20-40); Mean Corpuscular HGB Conc 33.8 g/dl (31.0-36.0); Mean Corpuscular Hemoglobin 33.8 pg (27.0-33.0); Mean Platelet Volume 9.9 fL (9.4-12.4); Monocytes Absolute Auto 0.5 X10*3/uL (0.1-1.2); Monocytes Percent Auto 8.8 % (2-11); Neutrophils Absolute Auto 3.1 x10*3/uL (2.0-8.3); Platelet Count 143 X10*3/uL (160-400); Red Blood Count 3.34 X10*6/uL (4.60-5.80); Red Cell Distribution Width 12.9 % (11.0-16.0); White Blood Count 5.4 X10*3/uL (4.8-10.8)
[2022-10-07 11:54] LABS: Appearance Urine Clear; Color Urine Yellow; Glucose Urine UA Negative (Negative); Leukocyte Esterase Urine Negative (Negative); Nitrite Urine Negative (Negative); PH 6.5 (5.0-9.0); Urine Blood Negative (Negative); Urine Ketones Negative (Negative); Urine Protein Negative (Neg-Trace)
[2022-10-07 12:06] LABS: Estimated Average Glucose 126 mg/dL
[2022-10-07 12:32] LABS: Alanine Aminotransferase 18 U/L (0-40); Albumin Level 4.5 g/dL (3.5-5.0); Alkaline Phosphatase 42 U/L (39-117); Anion Gap 14 (12-20); Aspartate Amino Transferase 17 U/L (5-37); Bilirubin Total 0.8 mg/dL (0.0-1.0); Blood Urea Nitrogen 37 mg/dL (9-16); Calcium 9.2 mg/dL (8.4-10.2); Carbon Dioxide 28 mmol/L (22-29); Chloride 105 mmol/L (96-108); Cholesterol 179 mg/dL; Estimated Glomerular Filt Rate 35; Glucose Fasting 121 mg/dL (60-99); HDL Cholesterol 47 mg/dL; LDL Cholesterol Calculated 105 mg/dl; Potassium 4.6 mmol/L (3.3-5.1); Sodium 142 mmol/L (135-145); Total Protein 6.7 g/dL (6.5-8.0); Triglycerides 137 mg/dL
[2022-10-07 12:48] LABS: TSH reflex Free T4 2.31 uIU/mL (0.32-4.0)
== END 2022-10-07 10:01 | disposition home or self-care (01) ==
LOC: HO.HMGCLDS 10:00
PROVIDERS: PCP Nurse Practitioner Family; Visit Provider Nurse Practitioner Family
DX: E11.319 Type 2 diabetes mellitus with unspecified diabetic retinopathy without macular edema (principal); I10 Essential (primary) hypertension; D64.9 Anemia, unspecified
CPT/HCPCS: 36415; 80053; 80061; 81003; 83036; 84443; 85025

== ENCOUNTER 2022-10-15 11:02 | Outpatient (REF) | payer BC, SELFPAY ==
[2022-10-15 14:04] LABS: Immature Retic Fraction 9.7 % (2.3-13.4); Retic HGB Equivalent 39.4 pg (30.0-35.0); Reticulocyte Percent 1.4 % (0.5-1.8); Reticulocytes Absolute 0.047 X10*6/uL (0.026-0.095)
[2022-10-15 14:47] LABS: Vitamin B12 259 pg/mL (200-900)
[2022-10-17 13:03] LABS: Hemoglobin 11.6 g/dL (13.2-17.1); MCH 34.4 pg (27.0-33.0); MCV 97.9 fL (80.0-100.0); RBC 3.37 Million/uL (4.20-5.80); RDW 12.9 % (11.0-15.0)
== END 2022-10-15 11:03 | disposition home or self-care (01) ==
LOC: HO.HMGCLDS 11:02
PROVIDERS: PCP Nurse Practitioner Family; Visit Provider Nurse Practitioner Family
DX: D64.9 Anemia, unspecified (principal)
CPT/HCPCS: 36415; 82607; 82746; 83020; 85014; 85018; 85041; 85045

== ENCOUNTER 2023-01-28 12:13 | Outpatient (REF) | payer BC, SELFPAY | END 2023-01-28 12:14 | disposition home or self-care (01) | LOC: HO.HMGCX 12:13 | PROVIDERS: PCP Nurse Practitioner Family; Visit Provider Nurse Practitioner Family | DX: M50.90 Cervical disc disorder, unspecified, unspecified cervical region (principal) | CPT/HCPCS: 72040 ==

== ENCOUNTER 2023-02-11 13:17 | Outpatient (AMB) | payer BC, SELFPAY ==
--- NOTE | 2023-02-11 13:35 | A.OFFPC_ITS ---
Vital Signs 02/11/23 13:37 Height 5 ft 7 in Weight 240 lb 2 oz BMI 37.6 BP 152/88 H Blood Pressure Location Lt brachial Position Sitting Pulse 79 Pulse Source Pulse Oximeter Pulse Oximetry (%) 98 Oxygen Delivery Method Room Air Intake Visit Reasons: 3m follow up Allergies No Known Allergies Allergy (Verified 02/11/23 17:49) Medication List - Last Reconciled 02/11/23 by Maged Coughlin, EMBOSSING TOOL SETTER- allopurinol 300 mg PO DAILY aspirin (Adult Aspirin Regimen) 81 mg PO DAILY blood sugar diagnostic ([employer] Ultra Test strips) BID brimonidine 0.2% drps ophthalmic (eye) dorzolamide 2% 1 drp ophthalmic-Right Q12H gabapentin 100 mg PO BID 30 days hydralazine 50 mg (2 x 25 mg) PO TID 30 days hydrochlorothiazide 25 mg PO DAILY labetalol 200 mg PO BID lancets ([employer] UltraSoft Lancets) BID testing lancets ([employer] Delica Lancets) As directed latanoprost 0.005% drps ophthalmic (eye) lisinopril 40 mg PO BID OneTouch Ultra2 Meter (blood-glucose meter) BID testing NS pioglitazone 15 mg PO DAILY 30 days pravastatin 40 mg PO DAILY sildenafil 25 mg PO DAILY PRN 10 days spironolactone 25 mg PO DAILY Tobacco use date assessed: 02/11/23 Fall risk assessment: 2 + Falls in past year Last assessed Fall Risk: 02/11/23 Dental Screening Dental Screen Date: 02/11/23 Did you have a dental visit in the last 12 months?: Yes Did you have a dental problem in the last 6 months where you did not have access to dental care?: No Was dental information given to patient?: Patient has dentist HPI 3m follow up HPI Details Pt is a diabetic, on an SALMA and a statin. A1c in office today is 6.0. Due for microalbumin. Denies polyuria, polydipsia, and neuropathy. Pt denies any signs and symptoms of hypoglycemia and does know how to correct it. Pt reports that his blood sugar is usually between 132-137. Eye exam is up to date. HTN: Pt reports that his blood pressure is normal at home, in the 120s-130s/70s. He states that he is very anxious today. Denies chest pain, shortness of breath, headache, dizziness, and blurred vision. Pt reports ongoing cervical neck pain. He had an xr which showed no acute fracture or spondylolisthesis, the cervical disc spaces are well-maintained, mild anterior spondylosis at C4-C5. Pt reports that his pain is improving. He denies any radicular symptoms down his upper extremities. Pt reports increased anxiety. He has tried citalopram in the past which worked well. Will send 20mg. Denies any SI and HI. 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 Social History Housing: House Alcohol intake: never Patient Tobacco Use Status: Never used Tobacco e-Cigarette/Vaping Use: Never Used Second Hand Smoke Exposure: No service: No Current occupational status: retired Current occupational exposures/hazards: No Cognitive needs: No Hearing needs: No Vision needs: No Questionnaire Thrive Questionnaire Date Thrive assessed: 07/30/22 LAXMI-7 AMB Questionnaire LAXMI-7 Date LAXMI - 7 assessed: 07/30/22 Source: Developed by Drs. Mariano Johns, Zahira Gutierrez, Elvis Flores and colleagues, with an educational soha from [employer]. Review of Systems Const Reports as per HPI Physical exam (Primary Care) Vital Signs: Last Vital Signs Pulse 79 02/11/23 13:37 BP 152/88 H 02/11/23 13:37 Pulse Ox 98 02/11/23 13:37 Oxygen Delivery Method Room Air 02/11/23 13:37 BMI result Body Mass Index 37.6 Tobacco/Smoking Status: Tobacco use Status Tobacco use date assessed 02/11/23 02/11/23 13:43 Patient Tobacco Use Status Never used Tobacco 02/11/23 13:35 e-Cigarette/Vaping Use Never Used 02/11/23 13:35 Thrive Assessment: Date of Thrive Assessment Date Thrive assessed 07/30/22 02/11/23 13:35 Const General: cooperative Nutritional Appearance: obese Orientation/consciousness: patient oriented x3 Resp Effort & Inspection: normal respiratory effort Auscultation: clear to auscultation bilaterally Cardio Rate: regular rate Rhythm: regular rhythm Heart sounds: S1 normal heart sound present and S2 normal heart sound present Neuro General: patient oriented x3 Psych Appearance: grossly normal Mental Status: mental status grossly normal Speech and movement: Normal speech and movement present Affect: normal affect Attitude: cooperative Thought process: Normal thought process present Thought content: Normal thought content present Insight: Good insight present (Psych) Judgement: Good judgement present (Psych) Results AMB Hemoglobin A1c AMB Hemoglobin A1c 6.0 % Last Edit by Elsi Gonzalez CMA on 02/11/23 14: 00 Results Reviewed Results Reviewed: Laboratory Last Values Hgb A1c (Clinic) 6.0 % (4.0-6.0) 02/11/23 13:52 Assessment and Plan Assessment & Plan (1) Cervical neck pain with evidence of disc disease: Code(s): M50.90 - Cervical disc disorder, unspecified, unspecified cervical region (2) HTN (hypertension): Comment: He has labile hypertension relatively poor to controlled. Hopefully use of CPAP would help in better control of the blood pressure. He is to continue regular follow-up with cardiology service. Code(s): I10 - Essential (primary) hypertension (3) Anxiety: Code(s): F41.9 - Anxiety disorder, unspecified Plan The patient agreed to the use of a medical laboratory technicians for this encounter. Scribed for CORNELIO Mayo-JACOBY by Ann Castle medical laboratory technicians, on 02/11/2023 at 13:55 EST. Orders: Orders AMB Hemoglobin A1c Today R73.01 - Impaired fasting glucose Medications: New citalopram 20 mg PO DAILY 90 tabs 1RF Coding Level of Care Code Est Pt Level 3 (20661) Diagnoses Cervical neck pain with evidence of disc disease M50.90 HTN (hypertension) I10 Anxiety F41.9
[2023-02-11 13:37] VITALS: BP 152/88; PULSE 79; O2SAT 98; BMI 37.6
== END 2023-02-11 14:28 | disposition home or self-care (01) ==
PROVIDERS: Visit Provider Nurse Practitioner Family
DX: M50.90 Cervical disc disorder, unspecified, unspecified cervical region (principal); I10 Essential (primary) hypertension; F41.9 Anxiety disorder, unspecified
CPT/HCPCS: 83036; 99213

== ENCOUNTER 2023-05-11 09:07 | Outpatient (REF) | payer BC, SELFPAY | END 2023-05-11 09:08 | disposition home or self-care (01) | LOC: HO.HMGCLDS 09:07 | PROVIDERS: Absent Provider Internal Medicine Nephrology; PCP Nurse Practitioner Family; Visit Provider Nurse Practitioner Family | DX: I12.9 Hypertensive chronic kidney disease with stage 1 through stage 4 chronic kidney disease, or unspecified chronic kidney disease (principal); N18.32 Chronic kidney disease, stage 3b; N25.0 Renal osteodystrophy | CPT/HCPCS: 36415; 80051; 81003; 82040; 82043; 82306; 82310; 82565; 82570; 83735; 83970; 84100; 84156; 84520; 85025; 87086 ==

== ENCOUNTER 2023-05-21 15:23 | Outpatient (AMB) | payer BC, SELFPAY ==
--- NOTE | 2023-05-21 15:27 | A.OFFPC_ITS ---
Vital Signs 05/21/23 15:31 Height 5 ft 7 in Weight 242 lb BMI 37.9 BP 120/80 Blood Pressure Location Rt brachial Position Sitting Pulse 75 Pulse Source Pulse Oximeter Pulse Oximetry (%) 97 Oxygen Delivery Method Room Air Intake Visit Reasons: 3m follow up Allergies No Known Allergies Allergy (Verified 05/21/23 15:32) Medication List - Last Reconciled 05/21/23 by Maged Coughlin, SCALE RECLAMATION TENDER- allopurinol 300 mg PO DAILY aspirin (Adult Aspirin Regimen) 81 mg PO DAILY blood sugar diagnostic (OneTouch Ultra Test strips) BID brimonidine 0.2% drps ophthalmic (eye) citalopram 20 mg PO DAILY dorzolamide 2% 1 drp ophthalmic-Right Q12H gabapentin 100 mg PO BID 30 days hydralazine 50 mg (2 x 25 mg) PO TID 30 days hydrocortisone acetate (Anusol-HC) 25 mg SD BID labetalol 200 mg PO BID lancets (AlgramoTouch UltraSoft Lancets) BID testing lancets (AlgramoTouch Delica Lancets) As directed latanoprost 0.005% drps ophthalmic (eye) lisinopril 40 mg PO BID OneTouch Ultra2 Meter (blood-glucose meter) BID testing NS pioglitazone 15 mg PO DAILY 30 days pravastatin 40 mg PO DAILY sildenafil 100 mg PO DAILY PRN 10 days spironolactone 25 mg PO DAILY Tobacco use date assessed: 02/11/23 Fall risk assessment: 1 Fall in past year Last assessed Fall Risk: 05/21/23 HPI 3m follow up HPI Details Pt is a diabetic, on an SALMA and a statin. Last A1C was 6.0. Pt refuses repeat A1C because he received a bill last time. Microalbumin is up to date. Denies polyuria, polydipsia, does report neuropathy. Pt denies any signs and symptoms of hypoglycemia and does know how to correct it. Pt reports that his blood sugar has been in the 120s. Pt is interested in losing weight. Educated pt on proper diet and remaining active. Goals is 5-10lbs of weight loss by next visit. Pt reports that his celexa is working well. Denies any SI and HI. Refuses any vaccines. Pt sees an eye doctor on a regular basis. He is legally blind. 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 Social History Housing: House Alcohol intake: never Patient Tobacco Use Status: Never used Tobacco e-Cigarette/Vaping Use: Never Used Second Hand Smoke Exposure: No service: No Current occupational status: retired Current occupational exposures/hazards: No Cognitive needs: No Hearing needs: No Vision needs: No Questionnaire Thrive Questionnaire Date Thrive assessed: 07/30/22 LAXMI-7 AMB Questionnaire LAXMI-7 Date LAXMI - 7 assessed: 07/30/22 Source: Developed by Drs. Mariano Johns, Zahira Gutierrez, Elvis Flores and colleagues, with an educational soha from [employer]. Review of Systems Const Reports as per HPI Physical exam (Primary Care) Vital Signs: Last Vital Signs Pulse 75 05/21/23 15:31 BP 120/80 05/21/23 15:31 Pulse Ox 97 05/21/23 15:31 Oxygen Delivery Method Room Air 05/21/23 15:31 BMI result Body Mass Index 37.9 Tobacco/Smoking Status: Tobacco use Status Tobacco use date assessed 02/11/23 05/21/23 15:31 Patient Tobacco Use Status Never used Tobacco 05/21/23 15:31 e-Cigarette/Vaping Use Never Used 05/21/23 15:31 Thrive Assessment: Date of Thrive Assessment Date Thrive assessed 07/30/22 05/21/23 15:31 Const General: cooperative Nutritional Appearance: obese Orientation/consciousness: patient oriented x3 Resp Effort & Inspection: normal respiratory effort Auscultation: clear to auscultation bilaterally Cardio Rate: regular rate Rhythm: regular rhythm Heart sounds: S1 normal heart sound present and S2 normal heart sound present Neuro General: patient oriented x3 Extrem Other: bilat feet: + sensation with use of monofilament, feet intact Psych Appearance: grossly normal Mental Status: mental status grossly normal Speech and movement: Normal speech and movement present Affect: normal affect Attitude: cooperative Thought process: Normal thought process present Thought content: Normal thought content present Insight: Good insight present (Psych) Judgement: Good judgement present (Psych) Assessment and Plan Assessment & Plan (1) Diabetes with retinopathy: Code(s): E11.319 - Type 2 diabetes mellitus with unspecified diabetic retinopathy without macular edema Plan The patient agreed to the use of a medical billing assistant for this encounter. Scribed for KOLE Mayo by Ann Castle medical billing assistant, on 05/21/2023 at 16:05 EST Medications: Changed From sildenafil administer 30 minutes to 4 hours before activity 25 mg PO DAILY 10 days PRN 10 tabs 0RF sexual activity To sildenafil administer 30 minutes to 4 hours before activity 100 mg PO DAILY PRN 10 tabs 2RF sexual activity 10 days Refilled hydrocortisone acetate (Anusol-HC) 25 mg SD BID 24 ea 0RF Coding Level of Care Code Est Pt Level 3 (25511) Diagnoses Diabetes with retinopathy E11.319
[2023-05-21 15:31] VITALS: BP 120/80; PULSE 75; O2SAT 97; BMI 37.9
== END 2023-05-21 16:28 | disposition home or self-care (01) ==
PROVIDERS: PCP Nurse Practitioner Family; Visit Provider Nurse Practitioner Family
DX: E11.319 Type 2 diabetes mellitus with unspecified diabetic retinopathy without macular edema (principal)
CPT/HCPCS: 99213

== ENCOUNTER 2023-11-20 10:38 | Outpatient (REF) | payer BC, SELFPAY ==
[2023-11-26 18:28] LABS: Aldosterone/Renin Ratio 2.6 Ratio (0.9-28.9); Plasma Renin Activity 6.12 ng/mL/h (0.25-5.82)
== END 2023-11-20 10:39 | disposition home or self-care (01) ==
LOC: HO.LAB 10:38
PROVIDERS: PCP Nurse Practitioner Family; Visit Provider Internal Medicine Cardiovascular Disease
DX: I10 Essential (primary) hypertension (principal)
CPT/HCPCS: 36415; 82088; 82533

== ENCOUNTER 2023-11-20 10:38 | Outpatient (AMB) | payer BC, SELFPAY ==
[2023-11-20 10:40] VITALS: BP 140/60; PULSE 74; BMI 37.6
--- NOTE | 2023-11-20 10:40 | A.OFFVIS_ITS ---
Vital Signs 11/20/23 10:40 Height 5 ft 7 in Weight 240 lb 4.862 oz BMI 37.6 BP 140/60 H Blood Pressure Location Lt brachial Position Sitting Pulse 74 Intake Visit Reasons: 2 Yr follow up Process Lead Required: No Accompanied by: Daughter Allergies No Known Allergies Allergy (Verified 05/21/23 15:32) Medication List - Last Reconciled 11/20/23 by Alverto Gray MD allopurinol 300 mg PO DAILY aspirin (Adult Aspirin Regimen) 81 mg PO DAILY blood sugar diagnostic (DigitalAdvisorTouch Ultra Test strips) BID brimonidine 0.2% drps ophthalmic (eye) citalopram 20 mg PO DAILY dorzolamide 2% 1 drp ophthalmic-Right Q12H hydralazine 50 mg (2 x 25 mg) PO TID 30 days hydrochlorothiazide 25 mg PO DAILY hydrocortisone acetate (Anusol-HC) 25 mg DE BID labetalol 200 mg PO BID lancets (DigitalAdvisorTouch UltraSoft Lancets) BID testing lancets (DigitalAdvisorTouch Delica Lancets) As directed latanoprost 0.005% drps ophthalmic (eye) lisinopril 40 mg PO BID OneTouch Ultra2 Meter (blood-glucose meter) BID testing NS pioglitazone 15 mg PO DAILY 30 days pravastatin 40 mg PO DAILY sildenafil 100 mg PO DAILY PRN 10 days spironolactone 25 mg PO DAILY HPI Comments Details: Maged comes for follow-up, accompanied by his daughter. Since I last saw him his vision has been further impaired. He denies any symptoms of palpitation including prolonged irregular heartbeat or fast heart rate. He has not started his oral anticoagulant therapy as discussed last time 2 years ago. His blood pressure still remains elevated in the 140-150 systolic range. He said in his blood pressure is below 120 systolic he does not feel well and gets numbness in both his arms as well as generally does not feel well. He is taking all his medications as prescribed. Low-salt diet. Denies any exertional chest pain or shortness of breath. Denies any lightheadedness, syncope. He has been diagnosed with sleep apnea but can not tolerate CPAP therapy. 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 Social History Housing: House Alcohol intake: never Patient Tobacco Use Status: Never used Tobacco e-Cigarette/Vaping Use: Never Used Second Hand Smoke Exposure: No service: No Current occupational status: retired Current occupational exposures/hazards: No Cognitive needs: No Hearing needs: No Vision needs: No Review of Systems Const Denies chills, Denies fatigue, Denies fever(s), Denies frequent falls, Denies weakness, Denies weight gain and Denies weight loss ENT Denies dizziness Card Denies chest pain, Denies leg edema, Denies lightheadedness, Denies palpitations, Denies dyspnea and Denies dyspnea on exertion Resp Denies cough, Denies dyspnea and Denies dyspnea on exertion GI Denies hematochezia Musc Denies abnormal gait, Denies muscle weakness, Denies numbness, Denies radiating pain into limb and Denies tingling Neuro Denies abnormal gait, Denies dizziness, Denies frequent falls, Denies numbness, Denies tingling and Denies weakness Endo Denies fatigue and Denies palpitations Physical Exam Vital Signs: Last Vital Signs Pulse 74 11/20/23 10:40 BP 140/60 H 11/20/23 10:40 BMI result Body Mass Index 37.6 Const General: cooperative, comfortable, no acute distress, alert, awake, Physically active and well groomed Nutritional Appearance: obese Orientation/consciousness: patient oriented x3 Limitations: no limitations HEENT Head: Yes normocephalic and Yes atraumatic Neck Neck: Yes trachea midline, Yes supple and Yes no JVD Resp Effort & Inspection: normal respiratory effort Auscultation: clear to auscultation bilaterally Cardio Jugular venous distension: no JVD Palpation: normal PMI Rate: regular rate Rhythm: regular rhythm Heart sounds: S1 normal heart sound present, S2 normal heart sound present, no click, no gallops, no murmurs, no rubs and Other heart sounds present (S4 present) Skin General skin exam: no rashes or lesions noted Neuro General: patient oriented x3 Extrem General: Yes no clubbing, cyanosis or edema Assessment & Plan Assessment & Plan (1) Paroxysmal atrial fibrillation: Comment: Patient being followed by cardiology service Code(s): I48.0 - Paroxysmal atrial fibrillation Category: Medical Plan: Paroxysmal atrial fibrillation the past. No obvious clinical recurrence at this point time. He has high risk for thromboembolic complication. However he has not started oral anticoagulation as recommended in the past. Discussed that aspirin is not adequate prophylaxis. Continue aggressive risk factor m odification. Treatment of sleep apnea should be pursued. Advised to call me with any new abnormality or symptoms. (2) Uncontrolled hypertension: Code(s): I10 - Essential (primary) hypertension Category: Medical Plan: Hypertension still remains uncontrolled despite multiple agents. He would like to switch is senior linux unix administrator. Will refer him back to Dr. Mendosa as per his request. Continue current medical therapy. Advise cortisol and aldosterone level check. He requires treatment for sleep apnea. Can not tolerate CPAP therapy. Consider referral for inspire device. Importance of low-salt diet was discussed. Follow up in the clinic in 2 years, sooner p.r.n.. Thank you for allowing me to partake in his care Orders: Orders Cortisol Random Today I10 - Essential (primary) hypertension Aldost/Renin Today I10 - Essential (primary) hypertension Aldosterone Today I10 - Essential (primary) hypertension
== END 2023-11-20 11:17 | disposition home or self-care (01) ==
PROVIDERS: PCP Nurse Practitioner Family; Visit Provider Internal Medicine Cardiovascular Disease
DX: I48.0 Paroxysmal atrial fibrillation (principal); I10 Essential (primary) hypertension
CPT/HCPCS: 99214

== ENCOUNTER 2023-12-23 15:24 | Outpatient (AMB) | payer BC, SELFPAY ==
--- NOTE | 2023-12-23 15:26 | MHC.PC.OV ---
Vital Signs 12/23/23 15:30 Height 5 ft 7 in Weight 239 lb BMI 37.4 BP 110/74 Blood Pressure Location Rt brachial Position Sitting Pulse 77 Pulse Source Pulse Oximeter Pulse Oximetry (%) 98 Oxygen Delivery Method Room Air Intake Visit Reasons: PE (Do Not Move: rescheduled from [employer] vacation) Intake Note: Patient here for physical exam. Cologuard not yet done. Allergies No Known Allergies Allergy (Verified 12/23/23 16:04) Medication List - Last Reconciled 12/23/23 by MONY BurrP- allopurinol 300 mg PO DAILY aspirin (Adult Aspirin Regimen) 81 mg PO DAILY blood sugar diagnostic (OneTouch Ultra Test strips) BID brimonidine 0.2% drps ophthalmic (eye) citalopram 20 mg PO DAILY dorzolamide 2% 1 drp ophthalmic-Right Q12H hydralazine 50 mg (2 x 25 mg) PO TID 90 days hydrochlorothiazide 25 mg PO DAILY hydrocortisone acetate (Anusol-HC) 25 mg NM BID labetalol 200 mg PO BID lancets (OneTouch UltraSoft Lancets) BID testing lancets (OneTouch Delica Lancets) As directed latanoprost 0.005% drps ophthalmic (eye) lisinopril 40 mg PO BID 90 days OneTouch Ultra2 Meter (blood-glucose meter) BID testing NS pioglitazone 15 mg PO DAILY 30 days pravastatin 40 mg PO DAILY sildenafil 100 mg PO DAILY PRN 10 days spironolactone 25 mg PO DAILY Tobacco use date assessed: 12/23/23 Fall risk assessment: No Falls in past year Last assessed Fall Risk: 12/23/23 Dental Screening Dental Screen Date: 12/23/23 Did you have a dental visit in the last 12 months?: Yes Did you have a dental problem in the last 6 months where you did not have access to dental care?: No Was dental information given to patient?: Patient has dentist HPI PE (Do Not Move: rescheduled from [employer] vacation) HPI Details Pt is here for a PE. Labs have been ordered. Pt has a cologuard and will do this. Due for PSA, will order. Denies dribbling with urination, weak stream, and frequent nocturia. Pt is a diabetic, on an SALMA and a statin. A1C in office today is 6.6. Microalbumin is up to date. 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 Denies polyuria, polydipsia, and neuropathy. Pt denies any signs and symptoms of hypoglycemia and does know how to correct it. Pt is following up with cardiology, dermatology, and nephrology. 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 Social History Housing: House Alcohol intake: never Patient Tobacco Use Status: Never used Tobacco e-Cigarette/Vaping Use: Never Used Second Hand Smoke Exposure: No service: No Current occupational status: retired Current occupational exposures/hazards: No Cognitive needs: No Hearing needs: No Vision needs: No Questionnaire PHQ-9 Over the last 2 weeks, how often have you been bothered by any of the following problems? 1. Little interest or pleasure in doing things: not at all 2. Feeling down, depressed, or hopeless: not at all 3. Trouble falling or staying asleep, or sleeping too much: several days 4. Feeling tired or having little energy: not at all 5. Poor appetite or overeating: more than half the days 6. Feeling bad about yourself - or that you are a failure or have let yourself or your family down: not at all 7. Trouble concentrating on things, such as reading the newspaper or watching television: not at all 8. Moving or speaking so slowly that other people could have noticed. Or the opposite - being so fidgety or restless that you have been moving around a lot more than usual: not at all 9. Thoughts that you would be better off or of hurting yourself in some way: not at all Total score: 3 Depression Screening Interpretation: Negative Depression Screening Done: Yes 79264 - PHQ-9 Billing: Yes Source: Developed by Drs. Mariano Johns, Zahira Gutierrez, Elvis Flores and colleagues, with an educational soha from [employer]. Thrive Questionnaire Date Thrive assessed: 12/23/23 I am a: Patient What is your living situation today?: I have a steady place to live Within the past 12 months, did the food you bought not last and you didn't have the money to get more?: Never true Within the past 12 months, did you worry whether your food would run out before you got money to buy more?: Never true Do you have trouble paying for medicines?: No Do you have trouble getting transportation to medical appointments?: No Do you have trouble paying your heating and electricity bill?: No Do you have trouble taking care of your child, family member or friend?: No Do you have trouble with day-to-day activities such as bathing, preparing meals, shopping, managing finances, etc.?: No Are you currently unemployed and looking for a job?: No Are you interested in more education?: No Currently or been in a relationship where the following occur: I choose not to answer this question THRIVE Score: 0 LAXMI-7 AMB Questionnaire LAXMI-7 Date LAXMI - 7 assessed: 12/23/23 Feeling nervous, anxious, or on edge: 0 = Not at all Not being able to stop or control worryin = Several days Worrying too much about different things: 1 = Several days Trouble relaxin = Not at all Being so restless that it is hard to sit still: 2 = More than half the days Becoming easily annoyed or irritable: 0 = Not at all Feeling afraid as if something awful might happen: 0 = Not at all Total LAXMI-7 score (0-4 normal; 5-9 mild; 10-14 moderate; 15-21 severe): 4 Source: Developed by Drs. Mariano Johns, Elvis Wooten and colleagues, with an educational soha from [employer]. LAXMI-7 Assessment Billing LAXMI-7 Assessment Tool: LAXMI-7 Assessment 03966 Review of Systems Const Denies chills and Denies fever(s) Eyes Denies blurry vision ENT Denies vertigo, Denies dizziness and Denies sore throat Card Denies chest pain at rest, Denies chest pain with activity, Denies diaphoresis, Denies dyspnea and Denies dyspnea on exertion Resp Denies cough, Denies dyspnea, Denies dyspnea on exertion and Denies wheezing GI Denies abdominal pain, Denies melena, Denies hematochezia, Denies constipation, Denies diarrhea and Denies loose stools Denies hematuria Musc Denies numbness and Denies tingling Skin/Breast Denies lesions Neuro Denies vertigo, Denies dizziness, Denies numbness and Denies tingling Psych Denies anxiety, Denies depression, Denies homicidal ideation, Denies suicidal ideation and Denies other (substance abuse) Aller/Immun Denies wheezing Physical exam (Primary Care) Vital Signs: Last Vital Signs Pulse 77 12/23/23 15:30 BP 110/74 12/23/23 15:30 Pulse Ox 98 12/23/23 15:30 Oxygen Delivery Method Room Air 12/23/23 15:30 BMI result Body Mass Index 37.4 Tobacco/Smoking Status: Tobacco use Status Tobacco use date assessed 12/23/23 12/23/23 15:35 Patient Tobacco Use Status Never used Tobacco 12/23/23 15:28 e-Cigarette/Vaping Use Never Used 12/23/23 15:28 PHQ-9: PHQ-9 Score PHQ-9: Total score 3 12/23/23 15:45 Depression Screening Interpretation: Negative Thrive Assessment: Date of Thrive Assessment Date Thrive assessed 12/23/23 12/23/23 15:45 Currently or been in a relationship where the following occur: I choose not to answer this question Const General: cooperative Nutritional Appearance: well nourished Orientation/consciousness: patient oriented x3 HENMT Head: Yes normal to inspection, Yes normocephalic and Yes atraumatic Ears: TM's normal bilaterally Eyes General: appearance normal, both eyes and all related structures Alignment and Position: alignment normal and position normal Neck Neck: Yes normal visual inspection and Yes no lymphadenopathy Thyroid: Thyroid normal Resp Effort & Inspection: normal respiratory effort Auscultation: clear to auscultation bilaterally Cardio Rate: regular rate Rhythm: regular rhythm Heart sounds: S1 normal heart sound present, S2 normal heart sound present and no murmurs GI Other: diastasis rectus, small umbilical hernia Palpation (GI): Soft to palpation and nontender Auscultation: normal bowel sounds Male General Exam: Yes normal external exam Penis: normal penis Scrotum: scrotum normal, testes descended bilaterally and no inguinal hernias Testes: no testicular mass Skin Rashes: no rashes Neuro General: patient oriented x3, moves all extremities, no focal motor deficits and deep tendon reflexes 2+ bilaterally Romberg Test: Negative Extrem Other: bilat feet: + sensation with use of monofilament, feet intact Psych Appearance: grossly normal Mental Status: mental status grossly normal Speech and movement: Normal speech and movement present Affect: normal affect Attitude: cooperative Thought process: Normal thought process present Thought content: Normal thought content present Insight: Good insight present (Psych) Judgement: Good judgement present (Psych) Assessment and Plan Assessment & Plan (1) Diabetes with retinopathy: Code(s): E11.319 - Type 2 diabetes mellitus with unspecified diabetic retinopathy without macular edema Plan The patient agreed to the use of a biomedical service engineer for this encounter. Scribed for KOLE Mayo by lio Wallace scribe, on 12/23/2023 at 16:20 EST. Orders: Orders Microalbumin, Random (w Creat) Today E11.319 - Type 2 diabetes mellitus with unspecified diabetic retinopathy without macular edema Coding Level of Care Code Est Pt Prev Care >65y(66437) Diagnoses Diabetes with retinopathy E11.319 Additional Codes LAXMI-7 Assessment Billing - LAXMI-7 Assessment Tool: LAXMI-7 Assessment 52285 ([id number])
[2023-12-23 15:30] VITALS: BP 110/74; PULSE 77; O2SAT 98; BMI 37.4
== END 2023-12-23 16:29 | disposition home or self-care (01) ==
LOC: HO.HMGC 15:24
PROVIDERS: PCP Nurse Practitioner Family; Visit Provider Nurse Practitioner Family
DX: Z00.00 Encounter for general adult medical examination without abnormal findings (principal); E11.319 Type 2 diabetes mellitus with unspecified diabetic retinopathy without macular edema
CPT/HCPCS: 99397

== ENCOUNTER 2024-05-13 11:13 | Outpatient (REF) | payer BC, SELFPAY ==
[2024-05-13 13:10] LABS: MANUAL DIFF FLAG NO
[2024-05-13 13:18] LABS: Appearance Urine Clear; Color Urine Yellow; Glucose Urine UA Negative (Negative); Leukocyte Esterase Urine Negative (Negative); Nitrite Urine Negative (Negative); PH 5.5 (5.0-9.0); Specific Gravity - Urine 1.015 (1.005-1.025); Urine Blood Negative (Negative); Urine Ketones Negative (Negative); Urine Protein Negative (Neg-Trace)
[2024-05-13 13:34] LABS: Basophils Percent Auto 0.5 % (0-2); Eosinophils Absolute Auto 0.1 X10*3/uL (0.0-0.4); Eosinophils Percent Auto 1.2 % (0-4); Hematocrit 33.4 % (42.0-52.0); Hemoglobin 11.5 g/dl (14.0-18.0); Lymphocytes Absolute Auto 1.4 X10*3/uL (1.2-4.9); Lymphocytes Percent Auto 35.1 % (20-40); Mean Corpuscular HGB Conc 34.4 g/dl (31.0-36.0); Mean Corpuscular Hemoglobin 34.3 pg (27.0-33.0); Mean Corpuscular Volume 99.7 fL (80.0-98.0); Monocytes Absolute Auto 0.3 X10*3/uL (0.1-1.2); Monocytes Percent Auto 8.4 % (2-11); Neutrophils Absolute Auto 2.2 x10*3/uL (2.0-8.3); Neutrophils Percent Auto 54.8 % (45-73); Platelet Count 149 X10*3/uL (160-400); Red Blood Count 3.35 X10*6/uL (4.60-5.80); Red Cell Distribution Width 12.7 % (11.0-16.0); White Blood Count 4.1 X10*3/uL (4.8-10.8)
[2024-05-13 14:05] LABS: Alanine Aminotransferase 34 U/L (0-40); Albumin Level 4.4 g/dL (3.5-5.0); Alkaline Phosphatase 46 U/L (39-117); Anion Gap 13 (12-20); Aspartate Amino Transferase 23 U/L (5-37); Bilirubin Total 0.7 mg/dL (0.0-1.0); Blood Urea Nitrogen 27 mg/dL (9-16); Calcium 9.6 mg/dL (8.4-10.2); Carbon Dioxide 25 mmol/L (22-29); Chloride 106 mmol/L (96-108); Cholesterol 160 mg/dL (<200); Estimated Glomerular Filt Rate 38; Glucose Fasting 141 mg/dL (60-99); HDL Cholesterol 43 mg/dL (>40); LDL Cholesterol Calculated 88 mg/dL (<100); Potassium 4.3 mmol/L (3.3-5.1); Sodium 140 mmol/L (135-145); Total Protein 6.9 g/dL (6.5-8.0); Triglycerides 146 mg/dL (<150); Uric Acid 7.4 mg/dL (3.4-7.0)
[2024-05-13 14:16] LABS: Creatinine Urine 125.72 mg/dL; Microalbum/Creatinine Ratio Ur 6.3 ug/mg cr (<30)
[2024-05-13 14:22] LABS: Vitamin D 25-OH Total 34.2 ng/mL (>30)
== END 2024-05-13 11:14 | disposition home or self-care (01) ==
LOC: HO.HMGCLDS 11:13
PROVIDERS: PCP Nurse Practitioner Family; Visit Provider Nurse Practitioner Family
DX: E11.319 Type 2 diabetes mellitus with unspecified diabetic retinopathy without macular edema (principal); I10 Essential (primary) hypertension; Z12.5 Encounter for screening for malignant neoplasm of prostate; M10.9 Gout, unspecified
CPT/HCPCS: 36415; 80053; 80061; 81003; 82043; 82306; 82570; 84153; 84443; 84550; 85025

== ENCOUNTER 2024-05-16 14:26 | Outpatient (REF) | payer BC, SELFPAY ==
[2024-05-16 15:59] LABS: MANUAL DIFF FLAG NO
[2024-05-16 16:03] LABS: Basophils Percent Auto 0.2 % (0-2); Eosinophils Absolute Auto 0.1 X10*3/uL (0.0-0.4); Hematocrit 33.5 % (42.0-52.0); Hemoglobin 11.5 g/dl (14.0-18.0); Imm Gran Abs Auto 0.01 X10*3/uL (0.00-0.03); Imm Gran Pct Auto 0.2 % (0.0-0.4); Lymphocytes Absolute Auto 1.4 X10*3/uL (1.2-4.9); Lymphocytes Percent Auto 28.4 % (20-40); Mean Corpuscular HGB Conc 34.3 g/dl (31.0-36.0); Mean Corpuscular Hemoglobin 33.9 pg (27.0-33.0); Mean Corpuscular Volume 98.8 fL (80.0-98.0); Mean Platelet Volume 10.2 fL (9.4-12.4); Monocytes Absolute Auto 0.5 X10*3/uL (0.1-1.2); Monocytes Percent Auto 10.3 % (2-11); Neutrophils Percent Auto 59.9 % (45-73); Platelet Count 160 X10*3/uL (160-400); Red Blood Count 3.39 X10*6/uL (4.60-5.80); Red Cell Distribution Width 12.7 % (11.0-16.0)
[2024-05-16 16:26] LABS: Iron 130 mcg/dL (45-160); Percent Iron Saturation 45 % (15-50); Total Iron Binding Capacity 292 mcg/dL (228-428); Unsaturated Iron Binding 162 ug/dL
[2024-05-16 16:44] LABS: Ferritin 100 ng/mL (20-250)
[2024-05-16 16:58] LABS: Folate 10.8 ng/mL (> or = 4.0); Vitamin B12 272 pg/mL (200-900)
[2024-05-19 19:24] LABS: Intrinsic Factor Antibodies Negative (Negative)
[2024-05-21 08:29] LABS: Methylmalonic Acid 268 nmol/L (69-390)
[2024-05-21 14:43] LABS: Parietal Cell Antibody <=20.0 Unit (<=20.0)
== END 2024-05-16 14:27 | disposition home or self-care (01) ==
LOC: HO.HMGCLDS 14:26
PROVIDERS: PCP Nurse Practitioner Family; Visit Provider Nurse Practitioner Family
DX: D64.9 Anemia, unspecified (principal)
CPT/HCPCS: 36415; 82607; 82728; 82746; 83516; 83540; 83921; 85025; 86340

== ENCOUNTER 2024-05-20 13:14 | Outpatient (REF) | payer BC, SELFPAY ==
[2024-05-23 17:03] LABS: Homocysteine 12.7 umol/L (<11.4)
== END 2024-05-20 13:15 | disposition home or self-care (01) ==
LOC: HO.LAB 13:14
PROVIDERS: PCP Nurse Practitioner Family; Visit Provider Nurse Practitioner Family
DX: D64.9 Anemia, unspecified (principal)
CPT/HCPCS: 36415; 83090

== ENCOUNTER 2024-11-08 08:04 | Outpatient (REF) | payer BC, SELFPAY ==
[2024-11-08 07:57] LABS: MANUAL DIFF FLAG NO
--- NOTE | 2024-11-08 08:03 | EMG_ITS ---
Bilateral tibial and peroneal motor studies were performed. Bilateral sural and superficial peroneal sensory studies were performed. He could not lay on his back, and tibial H reflexes were not performed. Paraspinals could not be checked. Leg muscles were checked with EMG. IMPRESSION: Severe axonal sensory motor peripheral neuropathy. MD TANYA Kramer/DANITA / [id number]
--- OUTSIDE RECORDS SUMMARY | 2024-11-08 08:14 | XMS_ITS | Clinical Summary ---
Author Organization [facility] Address [address] [facility] [address] [place] [address] Phone Care Team Providers Care Engineering Designer Name Role Phone Rodneystarr Maged MOBILE EQUIPMENT MECHANIC Primary Care Provider [phone] Allergies No known active allergies Medications hydrALAZINE 25 MG tablet Take 50 mg by mouth in the morning and 50 mg at noon and 50 mg in the evening. 2 Active lisinopril 40 MG tablet Take 40 mg by mouth in the morning and 40 mg in the evening. 2 Active hydroCHLOROthiazi de 25 MG tablet Take 25 mg by mouth 1 (one) time each day 2 Active labetalol (NORMODYNE) 100 MG tablet Take 200 mg by mouth in the morning and 200 mg in the evening. 2 Active Aspirin 81 MG capsule Take 1 tablet by mouth 1 (one) time each day Active allopurinol (ZYLOPRIM) 300 MG tablet Take 300 mg by mouth in the morning. Active pravastatin (PRAVACHOL) 40 MG tablet 2 Active dorzolamide (TRUSOPT) 2 % ophthalmic solution INSTILL 1 DROP INTO RIGHT EYE EVERY 12 HOURS 2 Active pioglitazone (ACTOS) 15 MG tablet Take 15 mg by mouth 1 (one) time each day 2 Active gabapentin (NEURONTIN) 100 MG capsule Take 100 mg by mouth in the morning and 100 mg in the evening. 3 Active sildenafil (VIAGRA) 25 MG tablet TAKE 1 TABLET BY MOUTH ONCE DAILY NEEDED FOR SEXUAL ACTIVITY FOR 10 DAYS. ADMINISTER 30 MINUTES TO 4 HOURS BEFORE ACTIVITY 3 Active latanoprost (XALATAN) 0.005 % ophthalmic solution 3 Active brimonidine (ALPHAGAN) 0.2 % ophthalmic solution INSTILL 1 DROP INTO RIGHT EYE TWICE DAILY 3 Active Dapagliflozin Propanediol (Farxiga) 10 MG tablet Take 10 mg by mouth 1 (one) time each day in the morning 90 tablet 2 3 Active spironolactone (ALDACTONE) 25 MG tabletIndications :Renal osteodystrophy,St age 3b chronic kidney disease (HCC),Essential hypertension Take 1 tablet (25 mg total) by mouth 1 (one) time each day 90 tablet 3 4 12/08/19 25 Active spironolactone (Aldactone) 25 MG tabletIndications :Renal osteodystrophy,St age 3b chronic kidney disease (HCC),Essential hypertension Take 1 tablet (25 mg total) by mouth 1 (one) time each day 30 tablet 11 4 02/07/20 25 Active Active Problems Problem Noted Date Diagnosed Date Stage 3b chronic kidney disease 01/16/2022 Renal osteodystrophy 01/16/2022 Chest pain 12/12/2021 Overview (01/14/2022): Last Assessment & Plan: Patient reports chest pain in the setting of acid reflux relieved by taking antacid. He has T2DM with nephropathy. Patient's diabetes has previously been undiagnosed. He also has uncontrolled hypertension that has been challenging to control. We will get a stress test to r/o CAD and an echo to r/o structural heart diease. Hypertensive chronic kidney disease, unspecified, with chronic kidney disease stage I through stage IV, or unspecified 12/11/2021 Chronic kidney disease stage 2 12/11/2021 Hyperlipidemia 08/02/2020 Overview (12/11/2021): Last Assessment & Plan: Continue pravastatin 40 mg daily. Paroxysmal atrial fibrillation 09/02/2017 Overview (12/11/2021): Last Assessment & Plan: No known clinical recurrence since a single episode in 2013 for which the patient has continued on aspirin. Patient denies any symptoms of A. fib at this time. Essential hypertension 09/02/2017 Overview (12/11/2021): Last Assessment & Plan: Blood pressure in the office today 180/88 on rooming, 178/92 on my check. Patient states compliance with current BP regimen. At this time, we will discontinue Lasix, start spironolactone 25 mg daily, have patient repeat BMP in 1 week. He is checking blood pressures at home and keeping a log for my review. Continue carvedilol 25 mg twice daily, hydralazine 50 mg 3 times a day and lisinopril. Patient endorsing that he has started limiting his sodium intake and trying to remain active. He denies any tobacco or alcohol use. I will see him back in 2 weeks, can titrate spironolactone to 50 mg if needed will make a different medication change if needed, renal artery ultrasound pending. Intolerant to 3 calcium channel blockers over the last 3 months due to extreme lower extremity edema and discomfort. History of cardioversion 09/02/2017 Overview (12/11/2021): 2013 Immunizations Name Administration Dates Next Due Moderna SARS-COV-2 12/01/2020 Pneumococcal Polysaccharide 11/28/2013 Family History Medical History Relation Comments Cancer Father Heart disease Father Relation Status Comments Father Unknown Mother Unknown Social History Tobacco Use Types Packs/Day Years Used Date Smoking Tobacco: Never Tobacco Cessation:Counseling Given: No Alcohol Use Standard Drinks/Week Comments No 0 (1 standard drink = 0.6 oz pur e alcohol) Sex and Gender Information Value Date Recorded Sex Assigned at Not on file Legal Sex Male 4:59 PM EST Gender Identity Not on file Sexual Orientation Not on file Last Filed Vital Signs Vital Sign Reading Time Taken Comments Blood Pressure 164/91 10/22/2023 1:47 PM EDT Pulse 77 07/17/2022 3:59 PM EST Temperature - - Respiratory Rate - - Oxygen Saturation 98% 07/17/2022 3:59 PM EST Inhaled Oxygen Concentration - - Weight 108 kg (238 lb) 10/22/2023 1:47 PM EDT Height - - Body Mass Index - - Plan of Treatment Upcoming Encounters Date Type Department Care Team (Late st Contact Info) Description 12/22/2024 3:45 PM EDT Office Visit [facility] [address] [place] [id number] Micah Ramirez MD [address] [address] Health Maintenance Due Date Last Done Comments Colorectal Cancer Screening: Annual FOBT 12/27/2004 Colorectal Cancer Screening: Colonoscopy 12/27/2004 Colorectal Cancer Screening: Sigmoidoscopy 12/27/2004 Pneumococcal Vaccine: 65+ Ye ars (2 of 2 - PCV) 11/28/2014 11/28/2013 Influenza Vaccine (Season Ended) 2025 Hepatitis B Vaccine Aged Out No longe r eligible based on patient's age to complete this topic Insurance [facility] Care Teams Engineering Designer Relationship Specialty Start Date End Date Maged Coughlin NP [address] [place] [phone] PCP - General Nurse Practitioner 02/25/21
[2024-11-08 08:33] LABS: Basophils Percent Auto 0.2 % (0-2); Eosinophils Absolute Auto 0.1 X10*3/uL (0.0-0.4); Eosinophils Percent Auto 1.3 % (0-4); Hematocrit 31.6 % (42.0-52.0); Hemoglobin 10.9 g/dl (14.0-18.0); Imm Gran Abs Auto 0.01 X10*3/uL (0.00-0.03); Imm Gran Pct Auto 0.2 % (0.0-0.4); Lymphocytes Absolute Auto 1.8 X10*3/uL (1.2-4.9); Lymphocytes Percent Auto 34.7 % (20-40); Mean Corpuscular HGB Conc 34.5 g/dl (31.0-36.0); Mean Corpuscular Hemoglobin 34.1 pg (27.0-33.0); Mean Corpuscular Volume 98.8 fL (80.0-98.0); Mean Platelet Volume 9.9 fL (9.4-12.4); Monocytes Absolute Auto 0.5 X10*3/uL (0.1-1.2); Monocytes Percent Auto 8.7 % (2-11); Neutrophils Absolute Auto 2.9 x10*3/uL (2.0-8.3); Neutrophils Percent Auto 54.9 % (45-73); Platelet Count 155 X10*3/uL (160-400); White Blood Count 5.3 X10*3/uL (4.8-10.8)
[2024-11-08 08:36] LABS: Appearance Urine Clear; Color Urine Yellow; Glucose Urine UA Negative (Negative); Leukocyte Esterase Urine Negative (Negative); Nitrite Urine Negative (Negative); PH 5.5 (5.0-9.0); Urine Blood Negative (Negative); Urine Ketones Negative (Negative); Urine Protein Negative (Neg-Trace)
[2024-11-08 08:42] LABS: Bacteria Urine None Seen (None Seen); Hyaline Casts Urine 0-2 /LPF (0-2); RBC Urine 0-2 /HPF (0-2); Squamous Epithelial Cell Urine 0-2 /HPF (0-2); WBC Urine 0-5 /HPF (0-5)
[2024-11-08 09:17] LABS: Creatinine Urine 155.34 mg/dL; Protein/Creatinine Ratio, Ur 0.06 (<0.2); Total Protein Urine Random 9 mg/dL (<12)
[2024-11-08 09:20] LABS: Albumin Level 4.3 g/dL (3.5-5.0); Anion Gap 11 (12-20); Blood Urea Nitrogen 27 mg/dL (9-16); Calcium 9.9 mg/dL (8.4-10.2); Carbon Dioxide 23 mmol/L (22-29); Chloride 110 mmol/L (96-108); Estimated Glomerular Filt Rate 34; Phosphorus 3.5 mg/dL (2.7-4.5); Potassium 4.2 mmol/L (3.3-5.1); Sodium 140 mmol/L (135-145)
[2024-11-08 09:38] LABS: Vitamin D 25-OH Total 22.1 ng/mL (>30)
[2024-11-08 10:41] LABS: Parathyroid Hormone Intact 74.7 pg/mL (8.7-77.1)
== END 2024-11-08 08:05 | disposition home or self-care (01) ==
LOC: HO.NEURO 08:04
PROVIDERS: Absent Provider Internal Medicine Nephrology; PCP Nurse Practitioner Family; Visit Provider Nurse Practitioner Family
DX: G62.89 Other specified polyneuropathies (principal); I12.9 Hypertensive chronic kidney disease with stage 1 through stage 4 chronic kidney disease, or unspecified chronic kidney disease; N18.32 Chronic kidney disease, stage 3b; N25.0 Renal osteodystrophy
CPT/HCPCS: 36415; 80051; 81001; 82040; 82043; 82306; 82310; 82565; 82570; 83735; 83970; 84100; 84156; 84520; 85025; 95860; 95886; 95910

== ENCOUNTER 2024-11-11 12:21 | Outpatient (REF) | payer BC, SELFPAY ==
--- OUTSIDE RECORDS SUMMARY | 2024-11-11 13:04 | XMS_ITS | Clinical Summary ---
Author Organization [facility] Address [address] [facility] [address] [place] [address] Phone Care Team Providers Care Stained Glass Window Designer Name Role Phone Rodneystarr Maged BASE BRANDER Primary Care Provider [phone] Allergies No known active allergies Medications hydrALAZINE [...] History of cardioversion 09/02/2017 Overview (12/11/2021): 2013 Encounters Date Type Department Care Team Description 11/08/2024 Orders Only [facility] [address] [address] Micah Ramirez MD from Last 3 Months Immunizations Immunization Administration Dates Next Due Moderna SARS-COV-2 12/01/2020 [...] Office Visit [facility] [address] [place] [address] Micah Ramirez MD [address] [facility] [address] [place] [address] Health Maintenance Due Date Last Done Comments Colorectal Cancer Screening: Annual FOBT 12/27/2004 Colorectal Cancer Screening: Colonoscopy 12/27/2004 Colorectal Cancer Screening: Sigmoidoscopy 12/27/2004 Pneumococcal Vaccine: 50+ Ye ars (2 of 2 - PCV) 11/28/2014 11/28/2013 Influenza Vaccine (Season Ended) 2025 Hepatitis B Vaccine Aged Out No longe r eligible based on patient's age to complete this topic Procedures Procedure Name Priority Date/Time Associated Diagnosis Comments PROTEIN / CREATININE RATIO, URINE Routine 11/08/2024 8:25 AM EDT ALBUMIN, URINE, RANDOM Routine 11/08/2024 8:25 AM EDT URINALYSIS WITH MICROSCOPIC Routine 11/08/2024 8:25 AM EDT PTH, INTACT (HC) Routine 11/08/2024 7:55 AM EDT VITAMIN D 25 HYDROXY Routine 11/08/2024 7:55 AM EDT ALBUMIN Routine 11/08/2024 7:55 AM EDT MAGNESIUM Routine 11/08/2024 7:55 AM EDT PHOSPHATE ( PHOSPHORUS) Routine 11/08/2024 7:55 AM EDT CALCIUM Routine 11/08/2024 7:55 AM EDT CREATININE, BLOOD Routine 11/08/2024 7:5 5 AM EDT BUN Routine 11/08/2024 7:55 AM EDT ELECTROLYTE PANEL Routine 11/08/2024 7:5 5 AM EDT CBC AND DIFFERENTIAL Routine 11/08/2024 7:55 AM EDT from Last 3 Months Results * Protein, Total, Random Urine w/Creatinine (Protein/Creat Ratio) (11/08/2024 8:25 AM EDT) Protein Urine Random 9 <12 mg/dL See order comments Protein/Creatin ine Ratio, Urine 0.06 <0.2 See order comments Comment: The spot urine protein:creatinine ratio may increase to 0.3 during normal . 11/08/2024 8:25 AM EDT 11/08/2024 8:25 AM EDT us Micah Ramirez MD LAB URINE ORDERABLES Final Re sult [place] See order comments [place] [address] * Albumin, urine, random (11/08/2024 8:25 AM EDT) Creatinine, Urine 155.34 mg/dL Se e order comments Urine Microalbumin 14.0 mg/L See order comments Microalbumin/Crea tinine Ratio 9.0 <30 ug/mg cr See order comments Comment: ?Albumin/Creatinine Ratio Reference Ranges: ?Normal: < 30 ug/mg creatinine ?Microalbuminuria: ??30 - 300 ug/mg creatinine Clinical Albuminuria: ??> 300 ug/mg creatinine 11/08/2024 8:25 AM EDT 11/08/2024 8:25 AM EDT Micah Ramirez MD LAB URINE ORDERABLES Final Re sult Performing Organization Address [facility] de Phone Number [place] See order comments [place] [address] * Urinalysis with microscopic (11/08/2024 8:25 AM EDT) Color Urine Yellow See orde r comments Appearance Urine Clear See order comments pH Urine 5.5 5.0 - 9.0 See order comments Glucose Urine Negative Negative mg/dL See order comments Blood, Urine Negative Negative See ord er comments Specific [place] Urine 1.020 1.005 - 1.025 See order comments Protein Urine Negative Neg-Trace mg/dL See order comments Ketones, Urine Negative Negative mg/dL See order comments Nitrite, Urine Negative Negative See o rder comments Leukocyte Esterase Urine Negative Negative See order comments RBC, Urine 0-2 0 - 2 /HPF See orde r comments WBC 0-5 0 - 5 /HPF See order comments Squamous Epithelial, Urine 0-2 0 - 2 /HPF See order comments Bacteria, Urine None Seen None Seen See order comments Hyaline Casts, Urine 0-2 0 - 2 /LPF See order comments 11/08/2024 8:25 AM EDT 11/08/2024 8:25 AM EDT Micah Ramirez MD LAB URINE ORDERABLES Final Re sult Performing Organization Address [facility] de Phone Number [place] See order comments [place] [address] * (ABNORMAL) Creatinine (11/08/2024 7:55 AM EDT) Creatinine Serum 1.96(H) 0.5 - 1.4 mg/dL See order comments eGFR 34 See order comments Comment: Chronic Kidney Disease: ??Estimated GFR < 60 mL/min/1.73m2 Severe Kidney Disease: ??Estimated GFR < 15 mL/min/1.73m2 11/08/2024 7:55 AM EDT 11/08/2024 7:55 AM EDT us Micah Ramirez MD LAB BLOOD ORDERABLES Final Re sult [place] See order comments [place] [address] * PTH, Intact (11/08/2024 7:55 AM EDT) Parathyroid Hormone, Intact 74.7 8.7 - 77.1 pg/mL See order comments 11/08/2024 7:55 AM EDT 11/08/2024 7:55 AM EDT us Micah Ramirez MD LAB [id number] SOLICITED RESULTS Final Result Performing Organization Address [facility] Co de Phone Number [place] See order comments [place] [address] * (ABNORMAL) Vitamin D 25 Hydroxy (11/08/2024 7:55 AM EDT) Vitamin D, 25-Hydroxy 22.1(L) >30 ng/mL See order comments Comment: Health Based Reference Values* < 20 ??ng/mL ??Deficient 20-30 ng/mL ??Insufficient > 30 ??ng/mL ??Sufficient *Eliezer PRATT. N Engl J Med. 2007;357:266-280 There is no well-established upper level of normal vitamin D levels. Some laboratories use 50 ng/mL as an upper limit of normal. However, toxicity is patient-dependent and may occur at any level. Careful correlation with the patient's presentation is necessary and, if there is concern for vitamin D toxicity, treatment should be considered irrespective of the serum level. Care must be taken in interpreting Vitamin D results from different laboratories and methodologies. ??Published data demonstrated that results from patients undergoing hemodialysis may show a negative bias when tested with various automated 25-OH vitamin D assays when compared to LC-MS/MS. When testing samples from patients whose predominant form of Vitamin D is Vitamin D2, such as patients receiving Vitamin D2 supplementation, results that are subtherapeutic should be confirmed with another method such as LC-MS/MS. 11/08/2024 7:55 AM EDT 11/08/2024 7:55 AM EDT us Micah Ramirez MD LAB BLOOD ORDERABLES Final Re sult [place] See order comments [place] [address] * (ABNORMAL) CBC and Differential (11/08/2024 7:55 AM EDT) WBC 5.3 4.8 - 10.8 X10*3/uL See order comments RBC 3.20(L) 4.60 - 5.80 X10*6/uL See order comments Hgb 10.9(L) 14.0 - 18.0 g/dl See order comments Hematocrit 31.6(L) 42.0 - 52.0 % See order comments MCV 98.8(H) 80.0 - 98.0 fL See order comments MCH 34.1(H) 27.0 - 33.0 pg See order comments MCHC 34.5 31.0 - 36.0 g/dl See order comments RDW 13.0 11.0 - 16.0 % See order comments Platelets 155(L) 160 - 400 X10*3/uL See order comments MPV 9.9 9.4 - 12.4 fL See order comments Neutrophils % Auto 54.9 45 - 73 % See order comments Immature Granulocytes 0.2 0.0 - 0.4 % See order comments Lymphocytes Relative 34.7 20 - 40 % See order comments Monocytes 8.7 2 - 11 % See order comments Eosinophils Relative 1.3 0 - 4 % See order comments Basophils Relative 0.2 0 - 2 % See order comments nRBC Count 0.0 0.0 - 0.2 /100WBC See order comments Neutrophils Absolute 2.9 2.0 - 8.3 x10*3/uL See order comments Immature Grans (Absolute) 0.01 0.00 - 0.03 X10*3/uL See order comments Lymphocytes Absolute 1.8 1.2 - 4.9 X10*3/uL See order comments Monocytes Absolute 0.5 0.1 - 1.2 X10*3/uL See order comments Eosinophils Absolute 0.1 0.0 - 0.4 X10*3/uL See order comments Basophils Absolute 0.0 0.0 - 0.2 X10*3/uL See order comments NRBC Absolute 0.000 0.0 - 0.012 X10*3/uL See order comments 11/08/2024 7:55 AM EDT 11/08/2024 7:55 AM EDT us Micah Ramirez MD LAB BLOOD ORDERABLES Final Re sult Performing Organization Address [facility] de Phone Number [place] See order comments [place] [address] * (ABNORMAL) BUN (11/08/2024 7:55 AM EDT) BUN 27(H) 9 - 16 mg/dL See order comments 11/08/2024 7:55 AM EDT 11/08/2024 7:55 AM EDT us Micah Ramirez MD LAB BLOOD ORDERABLES Final Re sult Performing Organization Address [facility] de Phone Number [place] See order comments [place] [address] * Phosphorus (11/08/2024 7:55 AM EDT) Phosphorus, Serum 3.5 2.7 - 4.5 mg/dL See order comments 11/08/2024 7:55 AM EDT 11/08/2024 7:55 AM EDT us Micah Ramirez MD LAB BLOOD ORDERABLES Final Re sult Performing Organization Address [facility] de Phone Number [place] See order comments [place] [address] * Magnesium (11/08/2024 7:55 AM EDT) Magnesium 2.0 1.6 - 2.6 mg/dL See order comments 11/08/2024 7:55 AM EDT 11/08/2024 7:55 AM EDT us Micah Ramirez MD LAB BLOOD ORDERABLES Final Re sult [place] See order comments [place] [address] * Calcium (11/08/2024 7:55 AM EDT) Calcium 9.9 8.4 - 10.2 mg/dL See order comments 11/08/2024 7:55 AM EDT 11/08/2024 7:55 AM EDT us Micah Ramirez MD LAB BLOOD ORDERABLES Final Re sult Performing Organization Address [facility] Co de Phone Number [place] See order comments [place] [address] * Albumin (11/08/2024 7:55 AM EDT) Albumin 4.3 3.5 - 5.0 g/dL See order comments 11/08/2024 7:55 AM EDT 11/08/2024 7:55 AM EDT us Micah Ramirez MD LAB BLOOD ORDERABLES Final Re sult Performing Organization Address [facility] de Phone Number [place] See order comments [place] [address] * (ABNORMAL) Electrolyte panel (11/08/2024 7:55 AM EDT) Sodium 140 135 - 145 mmol/L See order comments Potassium 4.2 3.3 - 5.1 mmol/L See order comments Chloride 110(H) 96 - 108 mmol/L See order comments Bicarbonate (CO2) 23 22 - 29 mmol/L See order comments Anion Gap 11(L) 12 - 20 See order comments 11/08/2024 7:55 AM EDT 11/08/2024 7:55 AM EDT us Micah Ramirez MD LAB BLOOD ORDERABLES Final Re sult Performing Organization Address [facility] de Phone Number [place] See order comments [place] [address] from Last 3 Months Insurance [facility] [place] [address] [facility] Care Teams Stained Glass Window Designer Relationship Specialty Start Date End Date Maged Coughlin NP [address] [place] [address] PCP - General Nurse Practitioner 02/25/21
--- OUTSIDE RECORDS SUMMARY | 2024-11-11 13:04 | XMS_ITS | Encounter Summary ---
Author Organization [facility] Address [address] [address] Phone Care Team Providers Care Puppy Walker Name Role Phone Maged Coughlin CONTAINER COORDINATOR Primary Care Provider [phone] Encounter Details Date Type Department Care Team ([facility] Contact Info) Description 11/08/2024 Orders Only [facility] [address] [address] Micah Ramirez MD [address] [address] Social History Tobacco Use Types Packs/Day Years Used Date Smoking Tobacco: Never Alcohol Use Standard Drinks/Week Comments No 0 (1 standard drink = 0.6 oz pur e alcohol) Sex and Gender Information Value Date Recorded Sex Assigned at Not on file Legal Sex Male 4:59 PM EST Gender Identity Not on file Sexual Orientation Not on file documented as of this encounter Plan of Treatment Upcoming Encounters Date Type Department Care Team (Late Contact Info) Description 12/22/2024 3:45 PM EDT Office Visit [facility] [address] [place] [address] Micah Ramirez MD [address] [address] documented as of this encounter Procedures Procedure Name Priority Date/Time Associated Diagnosis Comments PROTEIN / CREATININE RATIO, URINE Routine 11/08/2024 8:25 AM EDT ALBUMIN, URINE, RANDOM Routine 11/08/2024 8:25 AM EDT URINALYSIS WITH MICROSCOPIC Routine 11/08/2024 8:25 AM EDT CREATININE, BLOOD Routine 11/08/2024 7:5 5 AM EDT PTH, INTACT (HC) Routine 11/08/2024 7:55 AM EDT VITAMIN D 25 HYDROXY Routine 11/08/2024 7:55 AM EDT CBC AND DIFFERENTIAL Routine 11/08/2024 7:55 AM EDT BUN Routine 11/08/2024 7:55 AM EDT PHOSPHATE ( PHOSPHORUS) Routine 11/08/2024 7:55 AM EDT MAGNESIUM Routine 11/08/2024 7:55 AM EDT CALCIUM Routine 11/08/2024 7:55 AM EDT ALBUMIN Routine 11/08/2024 7:55 AM EDT ELECTROLYTE PANEL Routine 11/08/2024 7:5 5 AM EDT documented in this encounter Results * Protein, Total, Random Urine w/Creatinine (Protein/Creat Ratio) (11/08/2024 8:25 AM EDT) Protein Urine Random 9 <12 mg/dL See order comments Protein/Creatin ine Ratio, Urine 0.06 <0.2 See order comments Comment: The spot urine protein:creatinine ratio may increase to 0.3 during normal . 11/08/2024 8:25 AM EDT 11/08/2024 8:25 AM EDT us Micah Ramirez MD LAB URINE ORDERABLES Final Re sult [place] See order comments [place] [address] * Albumin, urine, random (11/08/2024 8:25 AM [...] ORDERABLES Final Re sult Performing Organization Address [facility] de Phone Number [place] See order comments [place] [address] * Urinalysis with microscopic (11/08/2024 8:25 AM EDT) Color Urine Yellow See orde r comments Appearance Urine Clear See order comments pH Urine 5.5 5.0 - 9.0 See order comments Glucose Urine Negative Negative mg/dL See order comments Blood, Urine Negative Negative See ord er comments Specific [place] Urine 1.020 1.005 - 1.025 See order [...] MD LAB URINE ORDERABLES Final Re sult [place] See order comments [place] [address] * PTH, Intact (11/08/2024 7:55 AM EDT) Parathyroid Hormone, Intact 74.7 8.7 - 77.1 pg/mL See order comments 11/08/2024 7:55 AM EDT 11/08/2024 7:55 AM EDT us Micah Ramirez MD LAB [id number] SOLICITED RESULTS Final Result Performing Organization Address [facility] Co de Phone Number [place] See order comments [place] [address] * (ABNORMAL) Vitamin D 25 Hydroxy (11/08/2024 [...] with another method such as LC-MS/MS. 11/08/2024 7:5 5 AM EDT 11/08/2024 7:55 AM EDT us Micah Ramirez MD LAB BLOOD ORDERABLES Final Re sult Performing Organization Address [facility] Phone Number [place] See order comments [place] [address] * Albumin (11/08/2024 7:55 AM EDT) Albumin 4.3 3.5 - 5.0 g/dL See order comments 11/08/2024 7:55 AM EDT 11/08/2024 7:55 AM EDT us Micah Ramirez MD LAB BLOOD ORDERABLES Final Re sult Performing Organization Address [facility] Phone Number [place] See order comments [place] [address] * Magnesium (11/08/2024 7:55 AM EDT) Magnesium 2.0 1.6 - 2.6 mg/dL See order comments 11/08/2024 7:55 AM EDT 11/08/2024 7:55 AM EDT us Micah Ramirez MD LAB BLOOD ORDERABLES Final Re sult Performing Organization Address [facility] Phone Number [place] See order comments [place] [address] * Phosphorus (11/08/2024 7:55 AM EDT) Phosphorus, Serum 3.5 2.7 - 4.5 mg/dL See order comments 11/08/2024 7:55 AM EDT 11/08/2024 7:55 AM EDT us Micah Ramirez MD LAB BLOOD ORDERABLES Final Re sult Performing Organization Address [facility] Phone Number [place] See order comments [place] [address] * Calcium (11/08/2024 7:55 AM EDT) Calcium 9.9 8.4 - 10.2 mg/dL See order comments 11/08/2024 7:55 AM EDT 11/08/2024 7:55 AM EDT Micah Ramirez MD LAB BLOOD ORDERABLES Final Re sult Performing Organization Address [facility] de Phone Number [facility] See order comments [place] [address] * (ABNORMAL) Creatinine (11/08/2024 7:55 AM EDT) Creatinine Serum 1.96(H) 0.5 - 1.4 mg/dL See order comments eGFR 34 See order comments Comment: Chronic Kidney Disease: ??Estimated GFR < 60 mL/min/1.73m2 Severe Kidney Disease: ??Estimated GFR < 15 mL/min/1.73m2 11/08/2024 7:55 AM EDT 11/08/2024 7:55 AM EDT Micah Ramirez MD LAB BLOOD ORDERABLES Final Re sult Performing Organization Address [facility] Phone Number [place] See order comments [place] [address] * (ABNORMAL) BUN (11/08/2024 7:55 AM EDT) BUN 27(H) 9 - 16 mg/dL See order comments 11/08/2024 7:55 AM EDT 11/08/2024 7:55 AM EDT Micah Ramirez MD LAB BLOOD ORDERABLES Final Re sult Performing Organization Address [facility] de Phone Number [place] See order comments [place] [address] * (ABNORMAL) Electrolyte panel (11/08/2024 7:55 AM [...] order comments [place] [address] * (ABNORMAL) CBC and Differential (11/08/2024 7:55 [...] order comments [place] [address] documented in this encounter Visit Diagnoses Not on filedocumented in this encounter Care Teams Puppy Walker Relationship Specialty Start Date End Date Maged Coughlin NP [address] [place] [address] PCP - General Nurse Practitioner 02/25/21 documented as of this encounter
[2024-11-11 13:16] LABS: MANUAL DIFF FLAG NO
[2024-11-11 13:26] LABS: Basophils Percent Auto 0.2 % (0-2); Eosinophils Absolute Auto 0.1 X10*3/uL (0.0-0.4); Eosinophils Percent Auto 1.8 % (0-4); Hematocrit 32.4 % (42.0-52.0); Hemoglobin 11.3 g/dl (14.0-18.0); Imm Gran Abs Auto 0.01 X10*3/uL (0.00-0.03); Imm Gran Pct Auto 0.2 % (0.0-0.4); Lymphocytes Absolute Auto 1.5 X10*3/uL (1.2-4.9); Lymphocytes Percent Auto 34.5 % (20-40); Mean Corpuscular HGB Conc 34.9 g/dl (31.0-36.0); Mean Corpuscular Volume 97.6 fL (80.0-98.0); Mean Platelet Volume 9.8 fL (9.4-12.4); Monocytes Absolute Auto 0.4 X10*3/uL (0.1-1.2); Monocytes Percent Auto 8.6 % (2-11); Neutrophils Absolute Auto 2.4 x10*3/uL (2.0-8.3); Neutrophils Percent Auto 54.7 % (45-73); Platelet Count 161 X10*3/uL (160-400); Red Blood Count 3.32 X10*6/uL (4.60-5.80); Red Cell Distribution Width 12.6 % (11.0-16.0); White Blood Count 4.4 X10*3/uL (4.8-10.8)
[2024-11-11 13:46] LABS: Estimated Average Glucose 163 mg/dL; Hemoglobin A1C 171.5942 umol/L; Hemoglobin A1c % 7.3 % (<6.0); Total Hemoglobin (HGBA1C) 3025.4913 umol/L
[2024-11-11 14:13] LABS: Alanine Aminotransferase 39 U/L (0-40); Albumin Level 4.4 g/dL (3.5-5.0); Alkaline Phosphatase 49 U/L (39-117); Anion Gap 10 (12-20); Aspartate Amino Transferase 27 U/L (5-37); Bilirubin Total 0.7 mg/dL (0.0-1.0); Blood Urea Nitrogen 23 mg/dL (9-16); Calcium 9.4 mg/dL (8.4-10.2); Carbon Dioxide 25 mmol/L (22-29); Chloride 109 mmol/L (96-108); Cholesterol 149 mg/dL (<200); Estimated Glomerular Filt Rate 43; Glucose Fasting 130 mg/dL (60-99); HDL Cholesterol 42 mg/dL (>40); LDL Cholesterol Calculated 83 mg/dL (<100); Potassium 4.1 mmol/L (3.3-5.1); Sodium 140 mmol/L (135-145); TSH reflex Free T4 1.29 uIU/mL (0.32-4.0); Total Protein 6.9 g/dL (6.5-8.0); Triglycerides 124 mg/dL (<150)
[2024-11-11 16:16] LABS: Appearance Urine Clear; Color Urine Yellow; Glucose Urine UA Negative (Negative); Leukocyte Esterase Urine Negative (Negative); Nitrite Urine Negative (Negative); PH 6.5 (5.0-9.0); Specific Gravity - Urine 1.015 (1.005-1.025); Urine Blood Negative (Negative); Urine Ketones Negative (Negative); Urine Protein Negative (Neg-Trace)
== END 2024-11-11 12:22 | disposition home or self-care (01) ==
LOC: HO.HMGCLDS 12:21
PROVIDERS: PCP Nurse Practitioner Family; Visit Provider Nurse Practitioner Family
DX: E11.319 Type 2 diabetes mellitus with unspecified diabetic retinopathy without macular edema (principal)
CPT/HCPCS: 36415; 80053; 80061; 81003; 83036; 84443; 85025

== ENCOUNTER 2024-11-23 15:16 | Outpatient (AMB) | payer BC, SELFPAY ==
[2024-11-23 15:24] VITALS: BP 100/60; RESP 16; TEMP 36.7; BMI 38.5
--- NOTE | 2024-11-23 15:24 | A.OFFPC_ITS ---
Vital Signs 11/23/24 15:24 Height 5 ft 7 in Weight 246 lb BMI 38.5 BP 100/60 Blood Pressure Location Rt brachial Position Sitting Respiration 16 Temp 98.0 F Temp Source Oral Intake Visit Reasons: DM follow up Intake Note: Pt is here today for his DM Allergies No Known Allergies Allergy (Verified 12/23/23 16:04) Tobacco use date assessed: 11/23/24 Fall risk assessment: 2 + Falls in past year Last assessed Fall Risk: 11/23/24 Dental Screening Dental Screen Date: 11/23/24 Did you have a dental visit in the last 12 months?: Yes Did you have a dental problem in the last 6 months where you did not have access to dental care?: No Was dental information given to patient?: Patient has dentist HPI DM follow up HPI Details Chief Complaint The patient is here for a follow-up appointment regarding diabetes management and related health concerns. History of Present Illness The patient is a 68-year-old male presenting with a follow-up for diabetes management. He recently recorded a Hemoglobin A1c level of 7.3% and started Jardiance 10 mg daily two weeks ago with no adverse reactions. He reports diabetic neuropathy affecting both feet with a previous inability to feel monofilament during assessment. Seeing neuro. Despite having flat feet, the skin remains intact, and he sees a direct entry midwife regularly. He has stage 3 chronic kidney disease and is managed by a cmo. The patient has refused vaccinations, is obese, and may consider a future addition of a GLP-1 agonist for diabetes control. Social History - Regular visits to a direct entry midwife for nora t care. - Visits a cmo for monitoring k idney function. Health Maintenance - Refusal of any vaccinations. - Regular visits to specialists (podiatr ist and cmo) for chronic conditions. Review of Systems - Neurological: Reports bilateral neurop athy in the feet. - Respiratory: Denies respiratory issues ; lungs noted to be fairly clear. - Endocrine: Reports management of diabe margot mellitus. - Musculoskeletal: Reports very flat fee t. - Weight: Obese. -denies any cp, sob, dizziness, rodriguez Physical Exam General: Cooperative, healthy appearing, comfortable, no acute distress, well developed, and obese Orientation: Patient oriented x3 Limitations: No limitations Head: Normal to inspection Ears: Hearing grossly normal bilaterally Nose: Normal external nose present Face and sinus: Normal facial exam Eyes: Appearance normal, both eyes and all related structures Neck: Normal visual inspection and Yes full ROM Respiratory: Normal respiratory effort and able to speak in complete sentences. Fairly clear to auscultation bilaterally Cardiovascular: Regular rate and rhythm. Normal S1 and S2 GI: Normal to inspection. Soft to palpation and nontender Skin: No rashes or lesions noted Neuro: Patient oriented x3, does have neuropathy bilaterally, could not feel a monofilament to his feet Extremities: Normal to inspection, feet were intact bilaterally, though very flat feet Results - Labs: Hemoglobin A1c at 7.3% Plan The management of diabetes involves continuation of Jardiance at 10 mg daily, acknowledging its effectiveness in cardiovascular risk reduction. We will revisit the potential addition of a GLP-1 agonist for added glycemic control and weight management benefits. The patient will maintain podiatry visits to address diabetic neuropathy management and should continue nephrology care for his chronic kidney disease. Obesity is a concern, and potential lifestyle interventions are to be discussed at later visits. Discussion Notes During our discussion, I addressed the management of diabetes with the introduction of Jardiance, which the patient has tolerated well. The potential addition of a GLP-1 agonist was considered, highlighting its weight and glucose control benefits. I informed the patient about the importance of regular podiatric care due to neuropathy, and consistent nephrology visits to monitor kidney function. Although the patient declined vaccinations, we acknowledged the risks involved and discussed the potential health impacts of obesity. The next steps include monitoring the efficacy of current treatments and discussing lifestyle modifications to address obesity. Patient Instructions - Continue taking Jardiance 10 mg daily as prescribed. - Keep regular direct entry midwife and nephrologi st appointments. - Monitor feet for any changes and seek care if needed. - Discuss potential lifestyle changes fo r weight management during next visit. - Follow up on the reconsideration of va ccinations in future consultations. 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 Social History Housing: House Alcohol intake: never Patient Tobacco Use Status: Never used Tobacco e-Cigarette/Vaping Use: Never Used Second Hand Smoke Exposure: No service: No Current occupational status: retired Current occupational exposures/hazards: No Cognitive needs: No Hearing needs: No Vision needs: No Questionnaire Thrive Questionnaire Date Thrive assessed: 12/23/23 LAXMI-7 AMB Questionnaire LAXMI-7 Date LAXMI - 7 assessed: 12/23/23 Source: Developed by Drs. Mariano Johns, Zahira Gutierrez, Elvis Flores and colleagues, with an educational soha from [employer] Physical exam (Primary Care) Vital Signs: Last Vital Signs Temp 98.0 F 11/23/24 15:24 Resp 16 11/23/24 15:24 BP 100/60 11/23/24 15:24 BMI result Body Mass Index 38.5 Tobacco/Smoking Status: Tobacco use Status Tobacco use date assessed 11/23/24 11/23/24 15:29 Patient Tobacco Use Status Never used Tobacco 11/23/24 15:24 e-Cigarette/Vaping Use Never Used 11/23/24 15:24 Thrive Assessment: Date of Thrive Assessment Date Thrive assessed 12/23/23 11/23/24 15:24 Coding Level of Care Code Est Pt Level 3 (71098) Diagnoses CKD (chronic kidney disease) stage 3, GFR 30-59 ml/min N18.30 Decreased pedal pulses R09.89 Diabetes with retinopathy E11.319 Assessment & Plan Assessment & Plan (1) CKD (chronic kidney disease) stage 3, GFR 30-59 ml/min: Code(s): N18.30 - Chronic kidney disease, stage 3 unspecified Category: Medical (2) Decreased pedal pulses: Code(s): R09.89 - Other specified symptoms and signs involving the circulatory and respiratory systems Category: Medical (3) Diabetes with retinopathy: Code(s): E11.319 - Type 2 diabetes mellitus with unspecified diabetic retinopathy without macular edema Category: Medical Plan . Orders: Orders US arterial duplex LE BI Today R09.89 - Other specified symptoms and signs involving the circulatory and respiratory systems Complete Blood Count Auto Diff Today E11.319 - Type 2 diabetes mellitus with unspecified diabetic retinopathy without macular edema Comprehensive [place]. Panel Fast Today E11.319 - Type 2 diabetes mellitus with unspecified diabetic retinopathy without macular edema TSH reflex Free T4 Today E11.319 - Type 2 diabetes mellitus with unspecified diabetic retinopathy without macular edema UA CC w/rflx Micro + Cult Today E11.319 - Type 2 diabetes mellitus with unspecified diabetic retinopathy without macular edema Lipid Panel Today E11.319 - Type 2 diabetes mellitus with unspecified diabetic retinopathy without macular edema Hemoglobin A1c Today E11.319 - Type 2 diabetes mellitus with unspecified diabetic retinopathy without macular edema Referrals Nephrology Referral N18.30 - Chronic kidney disease, stage 3 unspecified Medications: New cholecalciferol (vitamin D3) 50 mcg PO DAILY 90 caps 0RF
--- OUTSIDE RECORDS SUMMARY | 2024-11-23 18:00 | XMS_ITS | Clinical Summary ---
Author Organization [facility] Address [address] [facility] [address] [place] [address] Phone Care Team Providers Care Geographical Historian Name Role Phone Rodneystarr Maged DIE DRAWING CHECKER Primary Care Provider [phone] Allergies No known active allergies Medications hydrALAZINE [...] Encounters Date Type Department Care Team Description 11/15/2024 Orders Only [facility] [address] [phone] Estefanía Mar ARNP Stage 3b chronic kidney disease (HCC) (Primary Dx) 11/08/2024 Orders Only [facility]. [address] [phone] Micah Ramirze MD from Last 3 Months Immunizations Immunization [...] Office Visit [facility] [address] [phone] Micah Ramirez MD [address] [phone] Health Maintenance Due Date Last Done Comments Colorectal Cancer Screening: Annual FOBT 12/27/2004 Colorectal Cancer Screening: Colonoscopy 12/27/2004 Colorectal Cancer Screening: Sigmoidoscopy 12/27/2004 Pneumococcal Vaccine: 50+ Ye ars (2 of 2 - PCV) 11/28/2014 11/28/2013 Influenza Vaccine (Season Ended) 2025 Pneumococcal Vaccine: Peds ( 0 to 5 Years) and At-Risk Patients (6 to 49 Years) Discontinued 11/28/2013 Hepatitis B Vaccine Aged Out No longe [...] MD LAB URINE ORDERABLES Final Re sult [place] See order comments [place] [address] * Albumin, urine, random (11/08/2024 8:25 AM [...] ORDERABLES Final Re sult Performing Organization Address [facility] de Phone Number See order comments [place] [address] * Urinalysis with microscopic (11/08/2024 8:25 AM EDT) Color Urine Yellow See orde r comments Appearance Urine Clear See order comments pH Urine 5.5 5.0 - 9.0 See order comments Glucose Urine Negative Negative mg/dL See order comments Blood, Urine Negative Negative See ord er comments Specific [place] Urine 1.020 1.005 - 1.025 See order [...] ORDERABLES Final Re sult Performing Organization Address [facility] de Phone Number See order comments [place] [address] * (ABNORMAL) Creatinine (11/08/2024 7:55 AM EDT) Creatinine Serum 1.96(H) 0.5 - 1.4 mg/dL See order comments eGFR 34 See order comments Comment: Chronic Kidney Disease: ??Estimated GFR < 60 mL/min/1.73m2 Severe Kidney Disease: ??Estimated GFR < 15 mL/min/1.73m2 11/08/2024 7:55 AM EDT 11/08/2024 7:55 AM EDT Micah Ramirez MD LAB BLOOD ORDERABLES Final Re sult Performing Organization Address [facility] de Phone Number [place] See order comments [place] [address] * PTH, Intact (11/08/2024 7:55 AM EDT) Parathyroid Hormone, Intact 74.7 8.7 - 77.1 pg/mL See order comments 11/08/2024 7:55 AM EDT 11/08/2024 7:55 AM EDT Micah Ramirez MD LAB [id number] SOLICITED RESULTS Final Result Performing Organization Address [facility] de Phone Number [place] See order comments [place] [address] * (ABNORMAL) Vitamin D 25 Hydroxy (11/08/2024 [...] order comments [place] [address] * (ABNORMAL) CBC and Differential (11/08/2024 7:55 [...] ORDERABLES Final Re sult Performing Organization Address [facility] Phone Number [place] See order comments [place] [address] * (ABNORMAL) BUN (11/08/2024 7:55 AM EDT) Pathologist [facility] BUN 27(H) 9 - 16 mg/dL See order comments 11/08/2024 7:55 AM EDT 11/08/2024 7:55 AM EDT us Micah Ramirez MD LAB BLOOD ORDERABLES Final Re sult Performing Organization Address [facility] Phone Number [place] See order comments [place] [address] * Phosphorus (11/08/2024 7:55 AM EDT) Pathologist [facility] Phosphorus, Serum 3.5 2.7 - 4.5 mg/dL See order comments 11/08/2024 7:55 AM EDT 11/08/2024 7:55 AM EDT us Micah Ramirez MD LAB BLOOD ORDERABLES Final Re sult Performing Organization Address [facility] Phone Number [place] See order comments [place] [address] * Magnesium (11/08/2024 7:55 AM EDT) Magnesium 2.0 1.6 - 2.6 mg/dL See order comments 11/08/2024 7:55 AM EDT 11/08/2024 7:55 AM EDT us Micha Ramirez MD LAB BLOOD ORDERABLES Final Re sult Performing Organization Address [facility] Phone Number [place] See order comments [place] [address] * Calcium (11/08/2024 7:55 AM EDT) Calcium 9.9 8.4 - 10.2 mg/dL See order comments 11/08/2024 7:55 AM EDT 11/08/2024 7:55 AM EDT us Micah Ramirez MD LAB BLOOD ORDERABLES Final Re sult Performing Organization Address [facility] Phone Number [place] See order comments [place] [address] * Albumin (11/08/2024 7:55 AM EDT) Albumin 4.3 3.5 - 5.0 g/dL See order comments 11/08/2024 7:55 AM EDT 11/08/2024 7:55 AM EDT us Micah Ramirez MD LAB BLOOD ORDERABLES Final Re sult Performing Organization Address [facility] Phone Number [place] See order comments [place] [address] * (ABNORMAL) Electrolyte panel (11/08/2024 7:55 AM [...] MD LAB BLOOD ORDERABLES Final Re sult [place] See order comments [place] [address] from Last 3 Months Insurance [facility] Care Teams Geographical Historian Relationship Specialty Start Date End Date Maged Coughlin NP [address] [place] [address] PCP - General Nurse Practitioner 02/25/21
== END 2024-11-23 16:24 | disposition home or self-care (01) ==
LOC: HO.HMCC 15:17
PROVIDERS: PCP Nurse Practitioner Family; Visit Provider Nurse Practitioner Family
DX: N18.30 Chronic kidney disease, stage 3 unspecified (principal); R09.89 Other specified symptoms and signs involving the circulatory and respiratory systems; E11.319 Type 2 diabetes mellitus with unspecified diabetic retinopathy without macular edema

== ENCOUNTER → 2024-11-23 15:16 | Outpatient (BNVA) | payer BC, SELFPAY | PROVIDERS: PCP Nurse Practitioner Family; Visit Provider Nurse Practitioner Family ==

== ENCOUNTER 2024-12-06 15:08 | Outpatient (AMB) | payer BC, SELFPAY ==
[2024-12-06 15:17] VITALS: BP 120/74; PULSE 76; BMI 38.3
--- NOTE | 2024-12-06 15:17 | A.OFFVIS_ITS ---
Vital Signs 12/06/24 15:17 Height 5 ft 7 in Weight 244 lb 11.41 oz BMI 38.3 BP 120/74 Blood Pressure Location Lt brachial Position Sitting Pulse 76 Intake Visit Reasons: Paroxysmal atrial fibrillation Intake Note: Follow-up dx afib with ekg feeling good Treater Required: No Requirements Manager: Requirements Manager Present Allergies No Known Allergies Allergy (Verified 12/23/23 16:04) Medication List - Last Reconciled 12/06/24 by Alverto Gray MD allopurinol 300 mg PO DAILY aspirin (Adult Aspirin Regimen) 81 mg PO DAILY blood sugar diagnostic (OneTouch Ultra Test strips) BID brimonidine 0.2% drps ophthalmic (eye) cholecalciferol (vitamin D3) 50 mcg PO DAILY dorzolamide 2% 1 drp ophthalmic-Right Q12H empagliflozin (Jardiance) 10 mg PO DAILY hydralazine 50 mg (2 x 25 mg) PO TID 90 days hydrochlorothiazide 25 mg PO DAILY labetalol 200 mg (2 x 100 mg) PO BID 90 days lancets (LoudClickTouch UltraSoft Lancets) BID testing lancets (LoudClickTouch Delica Lancets) As directed latanoprost 0.005% drps ophthalmic (eye) lisinopril 40 mg PO BID OneTouch Ultra2 Meter (blood-glucose meter) BID testing NS pravastatin 40 mg PO DAILY sildenafil 100 mg PO DAILY PRN 10 days spironolactone 25 mg PO DAILY HPI Comments Details: Maged comes for follow-up. He is accompanied by his daughter who is an RN. Patient has been doing well from cardiac perspective. He said he had gained a lot of weight due to indiscretion every eating. He said then after full meal and heavy eating when he would climb a flight of stairs he will get short of breath. Since then he has controlled his eating a lot and has lost some weight. With that he said he does not notice exertional shortness of breath. However still having significant weight issues. He does not exercise much as he said he can not get outside much but he does do recumbent bike. Denies any exertional chest pain. He was diagnose diabetes and currently on Jardiance for it. He says his sugars are better. Blood pressure remains adequately controlled and he says he more religiously takes medications. He tried to self lower his medication with hydralazine and notices a blood pressure spiked again in his currently taking hydralazine as prescribed. Does have chronic kidney disease creatinine of 1.6. Denies any prolonged palpitation irregular heartbeat. Denies any orthopnea, PND, leg edema. 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 Social History Housing: House Alcohol intake: never Patient Tobacco Use Status: Never used Tobacco e-Cigarette/Vaping Use: Never Used Second Hand Smoke Exposure: No service: No Current occupational status: retired Current occupational exposures/hazards: No Cognitive needs: No Hearing needs: No Vision needs: No Review of Systems Const Denies chills, Denies fatigue, Denies fever(s), Denies frequent falls, Denies weakness, Denies weight gain and Denies weight loss ENT Denies dizziness Card Denies chest pain, Denies leg edema, Denies lightheadedness, Denies palpitations, Denies dyspnea, Denies dyspnea on exertion, Denies orthopnea and Denies other (loss of consciousness) Resp Denies cough, Denies dyspnea and Denies dyspnea on exertion GI Denies hematochezia and Denies change in stool character Musc Denies abnormal gait, Denies muscle weakness, Denies numbness, Denies radiating pain into limb and Denies tingling Neuro Denies abnormal gait, Denies dizziness, Denies frequent falls, Denies numbness, Denies tingling and Denies weakness Endo Denies fatigue and Denies palpitations Physical Exam Vital Signs: Last Vital Signs Pulse 76 12/06/24 15:17 BP 120/74 12/06/24 15:17 BMI result Body Mass Index 38.3 Const General: cooperative, comfortable, no acute distress, alert, awake, Physically active and well groomed Nutritional Appearance: obese Orientation/consciousness: patient oriented x3 Limitations: no limitations HEENT Head: Yes normocephalic and Yes atraumatic Neck Neck: Yes trachea midline, Yes supple and Yes no JVD Resp Effort & Inspection: normal respiratory effort Auscultation: clear to auscultation bilaterally Cardio Jugular venous distension: no JVD Palpation: normal PMI Rate: regular rate Rhythm: regular rhythm Heart sounds: S1 normal heart sound present, S2 normal heart sound present, no click, no gallops, no murmurs, no rubs and Other heart sounds present (S4 present) Skin General skin exam: no rashes or lesions noted Neuro General: patient oriented x3 Extrem General: Yes no clubbing, cyanosis or edema Office Procedures EKG Details: EKG shows normal sinus rhythm with normal EKG [id number], Complete Assessment & Plan Assessment & Plan (1) Paroxysmal atrial fibrillation: Comment: Patient being followed by cardiology service Code(s): I48.0 - Paroxysmal atrial fibrillation Category: Medical Plan: Paroxysmal atrial fibrillation this elderly gentleman with multiple risk factors. Has had no clinical recurrence. Importance of continue rhythm control was discussed. Currently does not require antiarrhythmic drug therapy. Recommend oral anticoagulation therapy. After discussing the risks and benefits, he understands. Will prescribe him Eliquis 5 mg b.i.d.. Quarterly renal function test should be pursued. Continue aggressive risk factor modification. Most importantly discussed about aggressive weight reduction which will help with reduction overall burden of atrial fibrillation. Understands and agrees. Continue aggressive blood pressure control. (2) HTN (hypertension): Comment: He has labile hypertension relatively poor to controlled. Hopefully use of CPAP would help in better control of the blood pressure. He is to continue regular follow-up with cardiology service. Code(s): I10 - Essential (primary) hypertension Category: Medical Plan: Hypertension which is not better controlled on current medical therapy. Importance of medical therapy and compliance with medical therapy was discussed. He has had issues with it in the past and he agrees now. Takes his medications as prescribed. Doing well with it. Blood pressure is optimally controlled at this point time. Continue aggressive diabetes management goal hemoglobin A1c less than 7%. Continue statin therapy with target goal LDL less than 70 mg/dL. Continue participate in weight loss program. Will follow up in the clinic in 1 year's time after an echocardiogram. Thank you for allowing me to partake in his care Medications: New apixaban (Eliquis) 5 mg PO BID 60 tabs 5RF Coding Level of Care Code Est Pt Level 4 (88999) Complex EM visit Add On G2211 Diagnoses Paroxysmal atrial fibrillation I48.0 HTN (hypertension) I10 CPT Codes EKG - CPT: 91202-[id number], Complete ([id number])
--- OUTSIDE RECORDS SUMMARY | 2024-12-06 16:19 | XMS_ITS | Clinical Summary ---
Author Organization [facility] Address [address] [facility] [address] [place] [address] Phone Care Team Providers Care Drill Press Operator Numerical Control Name Role Phone Rodneystarr Maged PATTERN DATA OPERATOR Primary Care Provider [phone] Allergies No known active allergies Medications hydrALAZINE [...] Orders Only [facility] [address] [phone] Estefanía Mar ARNP Stage 3b chronic kidney disease (HCC) (Primary Dx) 11/08/2024 Orders Only [facility]. [address] [phone] Micah Ramirez MD from Last 3 Months [...] Care Team (Late st Contact Info) Description 12/15/2024 4:15 PM EDT Office Visit [facility] [address] [phone] Micah Ramirez MD [address] [phone] Health Maintenance Due Date Last Done Comments [...] order comments [place] [address] * Albumin, urine, random (11/08/2024 8:25 AM [...] ORDERABLES Final Re sult Performing Organization Address [facility] de Phone Number See order comments [place] [address] * Urinalysis with microscopic (11/08/2024 8:25 AM EDT) Color Urine Yellow See orde r comments Appearance Urine Clear See order comments pH Urine 5.5 5.0 - 9.0 See order comments Glucose Urine Negative Negative mg/dL See order comments Blood, Urine Negative Negative See ord er comments Specific Thornton Urine 1.020 1.005 - 1.025 See order [...] ORDERABLES Final Re sult Performing Organization Address [facility] de Phone Number See order comments [place] [address] * (ABNORMAL) Creatinine (11/08/2024 7:55 AM EDT) Creatinine Serum 1.96(H) 0.5 - 1.4 mg/dL See order comments eGFR 34 See order comments Comment: Chronic Kidney Disease: ??Estimated GFR < 60 mL/min/1.73m2 Severe Kidney Disease: ??Estimated GFR < 15 mL/min/1.73m2 11/08/2024 7:55 AM EDT 11/08/2024 7:55 AM EDT Micah Ramirez MD LAB BLOOD ORDERABLES Final Re sult Performing Organization Address [facility] de Phone Number [place] See order comments [place] [address] * PTH, Intact (11/08/2024 7:55 AM EDT) Parathyroid Hormone, Intact 74.7 8.7 - 77.1 pg/mL See order comments 11/08/2024 7:55 AM EDT 11/08/2024 7:55 AM EDT Micah Ramirez MD LAB [id number] SOLICITED RESULTS Final Result Performing Organization Address [facility] de Phone Number [place] See order comments [place] [address] * (ABNORMAL) Vitamin D 25 Hydroxy (11/08/2024 [...] order comments [place] [address] * (ABNORMAL) CBC and Differential (11/08/2024 7:55 [...] ORDERABLES Final Re sult Performing Organization Address [facility] Phone Number [place] See order comments [place] [address] * (ABNORMAL) BUN (11/08/2024 7:55 AM EDT) Pathologist [facility] BUN 27(H) 9 - 16 mg/dL See order comments 11/08/2024 7:55 AM EDT 11/08/2024 7:55 AM EDT us Micah Ramirez MD LAB BLOOD ORDERABLES Final Re sult Performing Organization Address [facility] Phone Number [place] See order comments [place] [address] * Phosphorus (11/08/2024 7:55 AM EDT) Pathologist [facility] Phosphorus, Serum 3.5 2.7 - 4.5 mg/dL See order comments 11/08/2024 7:55 AM EDT 11/08/2024 7:55 AM EDT us Micah Ramriez MD LAB BLOOD ORDERABLES Final Re sult Performing Organization Address [facility] Phone Number [place] See order comments [place] [address] * Magnesium (11/08/2024 7:55 AM EDT) Magnesium 2.0 1.6 - 2.6 mg/dL See order comments 11/08/2024 7:55 AM EDT 11/08/2024 7:55 AM EDT us Micah Ramirez MD LAB BLOOD ORDERABLES Final Re sult Performing Organization Address [facility] Phone Number [place] See order comments [place] [address] * Calcium (11/08/2024 7:55 AM EDT) Calcium 9.9 8.4 - 10.2 mg/dL See order comments 11/08/2024 7:55 AM EDT 11/08/2024 7:55 AM EDT us Micah Ramirez MD LAB BLOOD ORDERABLES Final Re sult Performing Organization Address [facility] Phone Number [place] See order comments [place] [address] * Albumin (11/08/2024 7:55 AM EDT) Albumin 4.3 3.5 - 5.0 g/dL See order comments 11/08/2024 7:55 AM EDT 11/08/2024 7:55 AM EDT us Micah Ramirez MD LAB BLOOD ORDERABLES Final Re sult Performing Organization Address [facility] Phone Number [place] See order comments [place] [address] * (ABNORMAL) Electrolyte panel (11/08/2024 7:55 AM [...] order comments [place] [address] from Last 3 Months Insurance [facility] Care Teams Drill Press Operator Numerical Control Relationship Specialty Start Date End Date Maged Coughlin NP [address] [place] [address] PCP - General Nurse Practitioner 02/25/21
== END 2024-12-06 15:49 | disposition home or self-care (01) ==
LOC: HO.HCS 15:09
PROVIDERS: PCP Nurse Practitioner Family; Visit Provider Internal Medicine Cardiovascular Disease
DX: I48.0 Paroxysmal atrial fibrillation (principal); I10 Essential (primary) hypertension
CPT/HCPCS: 93010; 99214

== ENCOUNTER → 2024-12-06 15:08 | Outpatient (BNVA) | payer BC, SELFPAY | PROVIDERS: PCP Nurse Practitioner Family; Visit Provider Internal Medicine Cardiovascular Disease | DX: I48.0 Paroxysmal atrial fibrillation (principal); I10 Essential (primary) hypertension | CPT/HCPCS: 93005 ==

== ENCOUNTER 2024-12-30 14:33 | Outpatient (REF) | payer BC, SELFPAY ==
--- NOTE | ~2024-12-30 | US_ITS ---
EXAMINATION: COLOR-FLOW DUPLEX IMAGING OF THE BILATERAL LOWER EXTREMITY ARTERIAL SYSTEM. CLINICAL INFORMATION: Decreased pulses: Other specified symptoms and signs involving the circulatory anatomy. FINDINGS: Atheromatous Plaque: No significant plaque evident. RIGHT FEMORAL RUNOFF VELOCITIES: The right common femoral artery measures 119 cm/s and triphasic. The right profunda femoral artery is 94 cm/s and is triphasic. The right proximal superficial femoral artery measures 136 cm/s and triphasic. (Findings which suggest a mild stenosis) The right mid superficial femoral artery is 116 cm/s and triphasic. The right distal right superficial femoral artery measures 105 cm/s and is triphasic. The right popliteal velocity measures 84 cm/s and is triphasic. The right posterior tibial artery velocity measures 196 cm/s and is triphasic. (Findings would suggest a possible moderate stenosis). The right peroneal artery is not well seen. The right anterior tibial artery measures 113 cm/s and is triphasic. The right dorsalis pedis artery measures 34 cm/s and is triphasic. LEFT FEMORAL RUNOFF VELOCITIES: The left common femoral artery measures 138 cm/s and triphasic. The left profunda femoral artery is 70.4 cm/s and is triphasic. The left proximal superficial femoral artery measures 106 cm/s and triphasic. The left mid superficial femoral artery is 93 cm/s and triphasic. The left distal right superficial femoral artery measures 68 cm/s and is triphasic. The left popliteal velocity measures 87 cm/s and is triphasic. The left posterior tibial artery velocity measures 118 cm/s and is triphasic. The left peroneal artery is not well seen. The left anterior tibial artery measures 95 cm/s and is triphasic. The left dorsalis pedis artery measures 73 cm/s and is triphasic. Incidental note made of a left-sided Aquino's cyst measuring 3.8 x 0.6 x 3.8 cm. US/US arterial duplex LE BI IMPRESSION: 1. Normal peripheral arterial testing with velocity measurements. No significant atherosclerotic disease is evident. 2. Incidental note made of a left-sided Aquino's cyst measuring 3.8 x 0.6 x 3.8 cm. Electronically signed by: Torres Ortiz MD 01/06/2025 01:35 PM EDT
== END 2024-12-30 14:34 | disposition home or self-care (01) ==
LOC: HO.US 14:33
PROVIDERS: PCP Nurse Practitioner Family; Visit Provider Nurse Practitioner Family
DX: R09.89 Other specified symptoms and signs involving the circulatory and respiratory systems (principal)
CPT/HCPCS: 93925

== ENCOUNTER → 2024-12-30 14:37 | Outpatient (BNV) | payer BC, SELFPAY | PROVIDERS: PCP Nurse Practitioner Family; Visit Provider Radiology Diagnostic Radiology | DX: R09.89 Other specified symptoms and signs involving the circulatory and respiratory systems (principal) | CPT/HCPCS: 93925 ==

== ENCOUNTER 2025-03-01 11:01 | Outpatient (REF) | payer BC, SELFPAY ==
--- OUTSIDE RECORDS SUMMARY | 2025-03-01 12:06 | XMS_ITS | Clinical Summary ---
Author Organization [facility] Address [address] [facility] [address] [place] [phone] Phone Care Team Providers Care Business Support Associate Name Role Phone Jv Hutson MD Unavailable [phone] Maged Coughlin NP Primary Care Provider + Allergies No known active allergies Medications aspirin 81 MG EC tablet 1 tablet Active allopurinol (ZYLOPRIM) 300 MG tabletIndications:p revention of acute gout attack Take 300 mg by mouth daily. Indications: treatment to prevent acute gout attack Active latanoprost (XALATAN) 0.005 % ophthalmic solution Place 1 drop into each eye nightly at bedtime. 12/06/19 Active labetaloL (TRANDATE) 100 MG tabletIndications:E ssential hypertension Take 2 tablets (200 mg total) by mouth 2 (two) times a day. 360 tablet 3 03/07/20 Active Additional Information Patient taking differently:200 mg Oral 2 times daily,1 tablet BID., Reported on 03/21/2022 brimonidine 0.2 % ophthalmic solution Place 1 drop into the right eye 2 (two) times a day. 03/20/20 Active dorzolamide (TRUSOPT) 2 % ophthalmic solution Place 1 drop into the right eye 2 (two) times a day. 03/20/20 Active hydroxypropyl methylcellulose (GENTEAL) 0.3 % Drop Place 1 drop into each eye 3 (three) times a day as needed. Active hydrALAZINE (APRESOLINE) 25 MG tabletIndications:E ssential hypertension Take 2 tablets (50 mg total) by mouth 3 (three) times a day. Provider is aware pt is on both medications 540 tablet 3 06/09/20 22 Active hydroCHLOROthiazide (HYDRODIURIL) 25 MG tabletIndications:M edication refill Take 1 tablet by mouth once daily 60 tablet 07/07/20 22 Active lisinopril (PRINIVIL,ZESTRIL) 40 MG tabletIndications:M edication refill Take 1 tablet by mouth twice daily 120 tablet 03/02/20 23 Active pravastatin (PRAVACHOL) 40 MG tabletIndications:M edication refill Take 1 tablet by mouth once daily 60 tablet 03/02/20 23 Active Active Problems Problem Noted Date Diagnosed Date Chest pain 12/12/2021 Assessment & Plan (12/12/2021 3:37 PM EDT): Patient reports chest pain in the setting of acid reflux relieved by taking antacid. He has T2DM with nephropathy. Patient's diabetes has previously been undiagnosed. He also has uncontrolled hypertension that has been challenging to control. We will get a stress test to r/o CAD and an echo to r/o structural heart diease. Hyperlipidemia 08/02/2020 Assessment & Plan (03/08/2021 3:23 PM EDT): Continue pravastatin 40 mg daily. Assessment & Plan (02/26/2021 10:17 AM EDT): Patient has been previously recommended a repeat lipid panel. Continue pravastatin 40 mg daily. Assessment & Plan (08/02/2020 10:44 AM EST): Continue pravastatin 40 mg daily. Paroxysmal atrial fibrillation 09/02/2017 Assessment & Plan (12/12/2021 3:30 PM EDT): Diagnosed about 8 years ago (per patient's report). No recurrence. He did report palpitations he's not associating with an irregular heart rate. Will consider a monitor if reports of further recurrence. Stress test should be helpful as well. Assessment & Plan (03/08/2021 3:21 PM EDT): No known clinical recurrence since a single episode in 2013 for which the patient has continued on aspirin. Patient denies any symptoms of A. fib at this time. Assessment & Plan (02/26/2021 10:16 AM EDT): No known clinical recurrence since a single episode in 2013 for which the patient has continued on aspirin. Patient denies any symptoms of A. fib at this time. Assessment & Plan (08/02/2020 10:43 AM EST): No known clinical recurrence since 2013. He has continued on aspirin for [id number] score 1- HTN. He will turn 65 next year which will result in a [id number] score of 2 at which time we will need to reevaluate oral anticoagulation. History of cardioversion 09/02/2017 Overview (09/02/2017): 2013 Essential hypertension 09/02/2017 Assessment & Plan (12/12/2021 3:28 PM EDT): Today his BP is the best it's been. We will look to his diet and lifestyle for optimal BP control prior to making any changes in his antihypertensive regimen. He has been noncompliant with restricting salty foods. He reports making better efforts of late to remedy this. - low sodium diet - daily exercise of at least 30 minutes - weight loss Assessment & Plan (03/08/2021 3:30 PM EDT): Blood pressure in the office today 180/88 [...] to extreme lower extremity edema and discomfort. Assessment & Plan (02/26/2021 10:57 AM EDT): Patient has been endorsing elevated blood pressures up to 187/119 at home, on my check in the office 198/108. He also states that he had an episode of vision changes for which his daughter had to drive him home recently. Unsure of BP at this time. He has now been intolerant to 3 calcium channel blockers including amlodipine, nifedipine and nisoldipine due to lower extremity edema and discomfort. Current regimen consists of carvedilol 25 mg twice a day, Lasix 40 mg and lisinopril is now maxed out at 80 mg. We will try to add hydralazine 25 mg 3 times a day. I have asked the patient to obtain a BMP on his way out today. I have also ordered him a renal artery ultrasound to ensure there is no stenosis playing a role in his very difficult to control BP. I am very concerned about the patient's high BP readings currently. We discussed in detail symptoms that would warrant an emergency room visit including another episode of vision changes, onset of a headache, decreased urine output, etc. Patient stated understanding. We also discussed in detail the patient's diet. He is not limiting his sodium to any extent. He ate 2 hotdogs last night. I have educated him on hidden salt sources and asked him to please start limiting his sodium strictly. We also discussed physical activity and patient does not endorse an organized physical activity regimen which I encouraged him to start doing. we also discussed weight loss and how all of these lifestyle modifications effect vermin exterminator BP control. Patient stated understanding. Patient also states that he has been previously diagnosed with LALI and recommended CPAP, but was unable to tolerate CPAP. He has therefore not been treating his sleep apnea. He states that his tells him that he snores heavily. I have referred him to our sleep medicine physician to reevaluate and advised the patient that it is very important to begin treating his sleep apnea. Assessment & Plan (08/02/2020 10:53 AM EST): Patient recently seen at urgent care for hypertensive urgency with reported headaches over the past 3 months. Current blood pressure medication regimen consists of Coreg 25 mg twice a day, lisinopril 40 mg twice a day, Lasix 20 mg daily and I will continue amlodipine 10 mg daily. His headache is now resolved. I have also ordered him a blood pressure cuff to hopefully be covered by his insurance. I discussed when to check his blood pressure 1 to 2 hours after taking his antihypertensives and recommended he keep a log of this until his next follow-up with us. I also discussed lifestyle modifications in terms of 30 minutes of physical activity at least 5 days a week, low-sodium/Mediterranean diet and maintaining a healthy weight. Patient stated understanding with needing to make lifestyle adjustments for long-term BP control. He will check his blood pressures and we will see him back in close follow-up in 2 to 3 weeks to assess his blood pressure control on new BP regimen. Could consider addition of hydralazine if Coreg/lisinopril/amlodipine maxed. Per review of recent BMP from 07/31/2020, creatinine/GFR unremarkable. I advised the patient we will need to repeat a BMP in a few months after he has continued on Lasix to ensure normal kidney function ongoing. I recommended that if he has a recurrence of his headaches, or vision changes/decreased urinary output, that he be seen right away to ensure he does not have another hypertensive urgency/emergency. I discussed long-term complications of uncontrolled hypertension. Immunizations Immunization Administration Dates Next Due COVID-19 (Pre-05/25) Moderna Vaccine, mRNA, PF 0 12/01/2020 Social History Tobacco Use Types Packs/Day Years [...] Sign Reading Time Taken Comments Blood Pressure 125/76 04/26/2022 11:59 AM EDT Pulse 83 04/26/2022 11:59 AM EDT Temperature 36.8 C (98.2 F) 04/26/2022 11:59 AM EDT Respiratory Rate 18 04/26/2022 11:59 AM EDT Oxygen Saturation 98% 04/26/2022 11:59 AM EDT Inhaled Oxygen Concentration - - Weight 106.6 kg (235 lb) 04/26/2022 2:47 PM EDT Height 170.2 cm (5' 7 ) 04/26/2022 2:47 PM EDT Body Mass Index 36.81 04/26/2022 2:47 PM EDT Plan of Treatment Health Maintenance Due Date Last Done Comments Adult Td,Tdap Booster 1955 LIPID PANEL 1955 DEPRESSION SCREENING 1967 HEPATITIS C SCREENING 12/27/1973 COLOGUARD 12/27/2000 COLONOSCOPY 12/27/2000 COLORECTAL CANCER SCREENING 12/27/2000 FIT TEST 12/27/2000 FOBT 12/27/2000 SIGMOIDOSCOPY 12/27/2000 VIRTUAL COLONOSCOPY 12/27/2000 ZOSTER VACCINES (1 of 2) 12/27/2005 PNEUMOCOCCAL VACCINES (50+ years) (2 of 2 - PCV) 11/28/2014 11/28/2013 RSV VACCINE (1 - Risk 60-74 years 1-dose series) 2015 CREATININE LEVEL 04/12/2022 04/12/2021, 02/26/2021 POTASSIUM LEVEL 04/12/2022 04/12/2021, 02/26/2021 BLOOD PRESSURE 09/21/2022 03/21/2022 COVID-19 VACCINE (2 - 2023-2 5 season) 2024 12/01/2020 SCREENING FOR DIABETES 04/12/2024 04/12/2021 SMOKING STATUS SCREENING (On ce After 26 Yrs) Completed 04/26/2022 HEPATITIS A VACCINES Aged Out No long er eligible based on patient's age to complete this topic HIB VACCINES Aged Out No longer eligi ble based on patient's age to complete this topic MENINGOCOCCAL VACCINES (ACWY) Aged Out No longer eligible based on patient's age to complete this topic MENINGOCOCCAL VACCINES (B) Aged Out N o longer eligible based on patient's age to complete this topic Medical Devices Not on file Procedures Procedure Name Priority Date/Time Associated Diagnosis Comments BASIC METABOLIC PANEL Routine 04/12/2021 12:19 PM EDT Essential hypertension from Last 3 Months or Most Recently Relevant to Health Maintenance Results * (ABNORMAL) Basic metabolic panel (04/12/2021 12:19 PM EDT) SODIUM 140 133 - 146 mmol/L [facility] CHLORIDE 104 96 - 108 mmol/L [facility] POTASSIUM 4.3 3.3 - 5.1 mmol/L [facility] CO2 25 21 - 35 mmol/L [facility] BUN 19 6 - 19 mg/dL [facility] CREATININE 1.30 0.5 - 1.5 mg/dL [facility] GLUCOSE 121(H) 70 - 99 mg/dL [facility] CALCIUM 9.5 8.4 - 10.3 mg/dL [facility] EGFR 57(L) >59 mL/min/1.7 3m2 [facility] Comment:Estimated glomerular filtration rate calculated using the CKD-EPI equation. ANION GAP 15 10 - 20 mmol/L [facility] Blood 04/12/2021 12:1 9 PM EDT 04/12/2021 12:26 PM EDT us Ijeoma Washburn PA-C LAB BLOOD ORDERABLES Final R esult [address] [address] from Last 3 Months or Most Recently Relevant to Health Maintenance Insurance [facility] [place] [id number] [facility] [place] [address] [facility] [place] [address] [facility] [place] [address] [facility] Care Teams Business Support Associate Relationship Specialty Start Date End Date Maged Coughlin NP [address] [place] [id number] [email or web address] PCP - General Family Medicine 01/12/20 Jv Hutson MD [email or web address] Historical LMR Provider 05/21/17 Additional Source Comments The information contained in this document represents components of the legal health record. It is not the complete legal health record.[facility]
--- OUTSIDE RECORDS SUMMARY | 2025-03-01 12:06 | XMS_ITS | Clinical Summary ---
Author Organization [facility] Address [address] [facility] [address] [place] [address] Phone Care Team Providers Care Art Historian Name Role Phone RodneyclayMaged martinez PULP AND PAPER TESTER Primary Care Provider Allergies No known active allergies Medications hydrALAZINE 25 MG tablet Take 50 mg by mouth in the morning and 50 mg at noon and 50 mg in the evening. 2 Active hydroCHLOROthiazi de 25 MG tablet Take 25 mg by mouth 1 (one) time each day 2 Active Aspirin 81 MG capsule Take [...] the morning 90 tablet 2 3 Active labetalol (NORMODYNE) 100 MG tablet Take 2 tablets (200 mg total) by mouth in the morning and 2 tablets (200 mg total) in the evening. 360 tablet 3 5 12/16/19 26 Active lisinopril 40 MG tablet Take 1 tablet (40 mg total) by mouth in the morning and 1 tablet (40 mg total) in the evening. 180 tablet 3 5 12/16/19 26 Active spironolactone (Aldactone) 25 MG tabletIndications :Stage 3b chronic kidney disease (HCC),Renal osteodystrophy,Es sential hypertension Take 1 tablet (25 mg total) by mouth 1 (one) time each day 90 tablet 3 5 12/16/19 26 Active Active Problems Problem Noted Date Diagnosed [...] Encounters Date Type Department Care Team Description 12/15/2024 4:15 PM EDT [facility] Visit [facility] [address] [place] [address] Micah Ramirez MD Stage 3b chronic kidney disease (HCC) (Primary Dx); Renal osteodystrophy; Essential hypertension 12/08/2024 Refill [facility] [address] [place] [address] Micah Ramirez MD Renal osteodystrophy; Stage 3b chronic kidney disease (HCC); Essential hypertension from Last 3 Months Immunizations Immunization Administration [...] Sign Reading Time Taken Comments Blood Pressure 140/72 12/15/2024 4:25 PM EDT Pulse 76 12/15/2024 4:25 PM EDT Temperature - - Respiratory Rate - - Oxygen Saturation 97% 12/15/2024 4:25 PM EDT Inhaled Oxygen Concentration - - Weight 112 kg (246 lb 9.6 oz) 12/15/2024 4:25 PM EDT Height - - Body Mass Index - - Plan of Treatment Upcoming Encounters Date Type Department Care Team (Late st Contact Info) Description 05/18/2025 3:00 PM EDT Office Visit [facility] [address] [place] [phone] Micah Ramirez MD [address] [phone] Health Maintenance Due Date Last Done Comments Colorectal Cancer Screening: Annual FOBT 12/27/2004 Colorectal Cancer Screening: Colonoscopy 12/27/2004 Colorectal Cancer Screening: Sigmoidoscopy 12/27/2004 Pneumococcal Vaccine: 50+ Ye ars (2 of 2 - PCV) 11/28/2014 11/28/2013 Influenza Vaccine (#1) 2025 Pneumococcal Vaccine: Peds ( 0 to 5 Years) and At-Risk Patients (6 to 49 Years) Discontinued 11/28/2013 Hepatitis B Vaccine Aged Out No longe r eligible based on patient's age to complete this topic Insurance [facility] Care Teams Art Historian Relationship Specialty Start Date End Date Maged Coughlin NP [address] [place] [address] PCP - General Nurse Practitioner 02/25/21
[2025-03-01 13:20] LABS: MANUAL DIFF FLAG NO
[2025-03-01 13:23] LABS: Appearance Urine Clear; Glucose Urine UA Negative (Negative); PH 6.0 (5.0-9.0); Specific Gravity - Urine 1.010 (1.005-1.025)
[2025-03-01 13:37] LABS: Hematocrit 32.2 % (42.0-52.0); Hemoglobin 10.7 g/dl (14.0-18.0); Imm Gran Abs Auto 0.01 X10*3/uL (0.00-0.03); Imm Gran Pct Auto 0.2 % (0.0-0.4); Lymphocytes Absolute Auto 1.5 X10*3/uL (1.2-4.9); Mean Corpuscular HGB Conc 33.2 g/dl (31.0-36.0); Mean Corpuscular Hemoglobin 33.8 pg (27.0-33.0); Mean Corpuscular Volume 101.6 fL (80.0-98.0); NRBC Abs Auto 0.000 X10*3/uL (0.0-0.012); NRBC Pct Auto 0.0 /100WBC (0.0-0.2); Platelet Count 156 X10*3/uL (160-400); Red Blood Count 3.17 X10*6/uL (4.60-5.80); White Blood Count 4.6 X10*3/uL (4.8-10.8)
[2025-03-01 13:47] LABS: Hemoglobin A1C 151.3248 umol/L; Total Hemoglobin (HGBA1C) 2918.3388 umol/L
[2025-03-01 14:23] LABS: Alanine Aminotransferase 34 U/L (0-40); Albumin Level 4.5 g/dL (3.5-5.0); Alkaline Phosphatase 46 U/L (39-117); Anion Gap 13 (12-20); Aspartate Amino Transferase 22 U/L (5-37); Blood Urea Nitrogen 28 mg/dL (9-16); Calcium 9.3 mg/dL (8.4-10.2); Carbon Dioxide 23 mmol/L (22-29); Chloride 110 mmol/L (96-108); Cholesterol 158 mg/dL (<200); Estimated Glomerular Filt Rate 37; HDL Cholesterol 38 mg/dL (>40); Potassium 4.6 mmol/L (3.3-5.1); Sodium 141 mmol/L (135-145); Total Protein 6.8 g/dL (6.5-8.0); Triglycerides 128 mg/dL (<150)
== END 2025-03-01 11:02 | disposition home or self-care (01) ==
LOC: HO.HMGCLDS 11:01
PROVIDERS: PCP Nurse Practitioner Family; Visit Provider Nurse Practitioner Family
DX: E11.319 Type 2 diabetes mellitus with unspecified diabetic retinopathy without macular edema (principal); D64.9 Anemia, unspecified
CPT/HCPCS: 36415; 80053; 80061; 81003; 83036; 84443; 85025

== ENCOUNTER 2025-03-06 15:22 | Outpatient (AMB) | payer BC, SELFPAY ==
--- NOTE | 2025-03-06 15:25 | A.OFFPC_ITS ---
Vital Signs 03/06/25 15:26 03/06/25 16:09 Height 5 ft 7 in Weight 247 lb BMI 38.7 BP 122/90 H 128/78 Blood Pressure Location Lt brachial Lt brachial Position Sitting Respiration 16 Pulse 90 Pulse Source Pulse Oximeter Pulse Oximetry (%) 98 Oxygen Delivery Method Room Air Intake Visit Reasons: follow up- neuropathy Art Therapist Required: No Accompanied by: Self / Same As Patient Allergies No Known Allergies Allergy (Verified 03/06/25 15:25) Medication List - Last Reconciled 03/06/25 by MONY BurrP- allopurinol 300 mg PO DAILY apixaban (Eliquis) 5 mg PO BID blood sugar diagnostic (OneTouch Ultra Test strips) BID brimonidine 0.2% drps ophthalmic (eye) cholecalciferol (vitamin D3) (Vitamin D3) 50 mcg PO DAILY dorzolamide 2% 1 drp ophthalmic-Right Q12H empagliflozin (Jardiance) 10 mg PO DAILY hydralazine 50 mg (2 x 25 mg) PO TID 90 days hydrochlorothiazide 25 mg PO DAILY labetalol 200 mg (2 x 100 mg) PO BID 90 days lancets (XambalaTouch UltraSoft Lancets) BID testing lancets (OneTouch Delica Lancets) As directed latanoprost 0.005% drps ophthalmic (eye) lisinopril 40 mg PO BID OneTouch Ultra2 Meter (blood-glucose meter) BID testing NS pravastatin 40 mg PO DAILY sildenafil 100 mg PO DAILY PRN 10 days spironolactone 25 mg PO DAILY Tobacco use date assessed: 03/06/25 Fall risk assessment: No Falls in past year Last assessed Fall Risk: 03/06/25 Dental Screening Dental Screen Date: 03/06/25 Did you have a dental visit in the last 12 months?: Yes Did you have a dental problem in the last 6 months where you did not have access to dental care?: No Was dental information given to patient?: Patient has dentist HPI follow up- neuropathy HPI Details Chief Complaint The patient presents for follow-up care for neuropathy. History of Present Illness The patient is a 69-year-old male presenting with neuropathy. He has severe neuropathy affecting motor function, confirmed by EMG testing. He uses a cane for mobility and reports doing well despite being legally blind. Has seen neurology, missing notes (will try to track down). The patient has regained some vision over the past year and regularly consults with eye specialists. His diabetes is well-controlled with an A1c within normal limits, but he is anemic and has chronic kidney disease. He follows up with a shafting cleaner for his kidney condition. The patient is obese and has deficiencies in vitamin B12 and vitamin D, which are being monitored. He plans to have these levels rechecked. Social History - Functional status: Uses a cane for mob ility due to neuropathy - Vision aids: Utilizes technology to as sist with daily activities due to legal blindness Health Maintenance - Regular follow-up with eye specialists for vision management - Regular follow-up with shafting cleaner delbert jain chronic kidney disease management - Regular follow-up with carpet mechanic delbert jain cardiovascular health Review of Systems - Neurological: Reports severe neuropath y affecting motor function - Endocrine: Denies uncontrolled diabete s, A1c within normal limits - Hematologic: Reports anemia - Renal: Reports chronic kidney disease - Ophthalmologic: Reports legal blindnes s, some vision regained Physical Exam General: Cooperative, healthy appearing, comfortable, no acute distress and well developed. Patient is obese. uses cane Orientation: Patient oriented x3 Limitations: Uses a cane Head: Normal to inspection Ears: Hearing grossly normal bilaterally Nose: Normal external nose present Face and sinus: Normal facial exam Eyes: Legally blind, but has regained some vision since about a year ago Neck: Normal visual inspection and Yes full ROM Respiratory: Normal respiratory effort and able to speak in complete sentences. Clear to auscultation bilaterally Cardiovascular: Regular rate and rhythm. Normal S1 and S2 GI: Normal to inspection. Soft to palpation and nontender Skin: No rashes or lesions noted Neuro: Patient oriented x3 Extremities: Normal to inspection. Feet intact to monofilament testing, uses cane. feet were intact bilat Results - EMG testing: Severe neuropathy affecti ng motor function Plan The patient will continue to follow up with his neurologist for management of severe neuropathy, which affects his motor function. Regular consultations with an eyeglass assembler are advised to monitor his vision status, given his legal blindness and recent improvements. His anemia and chronic kidney disease will be managed with regular nephrology consultations. The patient is advised to maintain regular follow-ups with his carpet mechanic to manage cardiovascular health, and his obesity should be addressed through lifestyle modifications. Vitamin and vitamin D levels will be rechecked to address deficiencies. Discussion Notes During the visit, I discussed the importance of regular follow-ups with the neurologist for neuropathy management and the eyeglass assembler for vision monitoring. We also reviewed the need for nephrology consultations to manage anemia and chronic kidney disease. I emphasized the importance of addressing obesity through lifestyle changes and the necessity of rechecking vitamin B12 and vitamin D levels. Patient Instructions - Continue using a cane for mobility sup port. - Follow up with your neurologist for ne uropathy management. - Schedule regular appointments with you r eyeglass assembler to monitor vision changes. - Maintain regular nephrology consultati ons for kidney health. - Implement lifestyle changes to address obesity. - Recheck vitamin B12 and vitamin D candelaria romero as advised. 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 Social History Housing: House Alcohol intake: never Patient Tobacco Use Status: Never used Tobacco e-Cigarette/Vaping Use: Never Used Second Hand Smoke Exposure: No service: No Current occupational status: retired Current occupational exposures/hazards: No Cognitive needs: No Hearing needs: No Vision needs: No Questionnaire PHQ-9 Over the last 2 weeks, how often have you been bothered by any of the following problems? 1. Little interest or pleasure in doing things: not at all 2. Feeling down, depressed, or hopeless: not at all 3. Trouble falling or staying asleep, or sleeping too much: several days 4. Feeling tired or having little energy: not at all 5. Poor appetite or overeating: more than half the days 6. Feeling bad about yourself - or that you are a failure or have let yourself or your family down: not at all 7. Trouble concentrating on things, such as reading the newspaper or watching television: not at all 8. Moving or speaking so slowly that other people could have noticed. Or the opposite - being so fidgety or restless that you have been moving around a lot more than usual: not at all 9. Thoughts that you would be better off or of hurting yourself in some way: not at all Total score: 3 Depression Screening Interpretation: Negative Depression Screening Done: Yes 01923 - PHQ-9 Billing: Yes Source: Developed by Drs. Mariano Johns, Zahira Gutierrez, Elvis Flores and colleagues, with an educational soha from [employer]. Thrive Questionnaire Date Thrive assessed: 12/23/23 LAXMI-7 AMB Questionnaire LAXMI-7 Date LAXMI - 7 assessed: 12/23/23 Feeling nervous, anxious, or on edge: 0 = Not at all Not being able to stop or control worryin = Not at all Worrying too much about different things: 0 = Not at all Trouble relaxin = Not at all Being so restless that it is hard to sit still: 0 = Not at all Becoming easily annoyed or irritable: 0 = Not at all Feeling afraid as if something awful might happen: 0 = Not at all Total LAXMI-7 score (0-4 normal; 5-9 mild; 10-14 moderate; 15-21 severe): 0 Source: Developed by Drs. Mariano Johns, Zahira Gutierrez, Elvis Flores and colleagues, with an educational soha from [employer]. LAXMI-7 Assessment Billing LAXMI-7 Assessment Tool: LAXMI-7 Assessment 56721 Physical exam (Primary Care) Vital Signs: Last Vital Signs Pulse 90 03/06/25 15:26 Resp 16 03/06/25 15:26 BP 122/90 H 03/06/25 15:26 Pulse Ox 98 03/06/25 15:26 Oxygen Delivery Method Room Air 03/06/25 15:26 BMI result Body Mass Index 38.7 Tobacco/Smoking Status: Tobacco use Status Tobacco use date assessed 03/06/25 03/06/25 15:35 Patient Tobacco Use Status Never used Tobacco 03/06/25 15:35 e-Cigarette/Vaping Use Never Used 03/06/25 15:35 PHQ-9: PHQ-9 Score PHQ-9: Total score 3 03/06/25 16:03 Depression Screening Interpretation: Negative Thrive Assessment: Date of Thrive Assessment Date Thrive assessed 12/23/23 03/06/25 15:35 Coding Level of Care Code Est Pt Level 3 (48076) Diagnoses Skin cancer C44.90 B12 deficiency E53.8 Vitamin D deficiency E55.9 Prostate cancer screening Z12.5 Diabetes with retinopathy E11.319 Additional Codes LAXMI-7 Assessment Billing - LAXMI-7 Assessment Tool: LAXMI-7 Assessment 11611 ([id number]) PHQ-9 - 95594 - PHQ-9 Billing: Yes ([id number]) Assessment & Plan Assessment & Plan (1) Skin cancer: Code(s): C44.90 - Unspecified malignant neoplasm of skin, unspecified Category: Medical (2) B12 deficiency: Code(s): E53.8 - Deficiency of other specified B group vitamins Category: Medical (3) Vitamin D deficiency: Code(s): E55.9 - Vitamin D deficiency, unspecified Category: Medical (4) Prostate cancer screening: Code(s): Z12.5 - Encounter for screening for malignant neoplasm of prostate Category: Medical (5) Diabetes with retinopathy: Code(s): E11.319 - Type 2 diabetes mellitus with unspecified diabetic retinopathy without macular edema Category: Medical Plan . Orders: Orders Vitamin B12 and Folate Today E53.8 - Deficiency of other specified B group vitamins Vitamin D 25-OH Total Today E55.9 - Vitamin D deficiency, unspecified Prostate Specific Antigen Scr Today Z12.5 - Encounter for screening for malignant neoplasm of prostate Referrals Dermatology Referral C44.90 - Unspecified malignant neoplasm of skin, unspecified Cologuard Test Z12.11 - Encounter for screening for malignant neoplasm of colon, Z12.12 - Encounter for screening for malignant neoplasm of rectum
--- OUTSIDE RECORDS SUMMARY | 2025-03-06 15:25 | XMS_ITS | Encounter Summary ---
Author Organization [facility] Address [address] [place] [address] Phone Care Team Providers Care Student Success Coach Name Role Phone Maged Coughlin RADIO DESPATCHER Primary Care Provider Reason for Visit * Reason Comments Med Refill Encounter Details Date Type Department Care Team (Late Contact Info) Description 03/03/2025 Refill [facility] [address] [place] [address] Micah Ramirez MD [address] [address] Stage 3b chronic kidney disease (HCC); Renal osteodystrophy; Essential hypertension Social History Tobacco Use Types Packs/Day Years [...] Visit [facility] [address] [address] Micah Ramirez MD [address] [facility] [address] [place] [address] documented as of this encounter Visit Diagnoses Diagnosis Stage 3b chronic kidney disease (HCC) Renal osteodystrophy Essential hypertension documented in this encounter Care Teams Student Success Coach Relationship Specialty Start Date End Date Maged Coughlin NP [address] [place] [address] PCP - General Nurse Practitioner 02/25/21 documented as of this encounter
--- OUTSIDE RECORDS SUMMARY | 2025-03-06 15:25 | XMS_ITS | Clinical Summary ---
Author Organization [facility] Address [address] [facility] [address] [place] [address] Phone Care Team Providers Care Aircraft Sales Representative Name Role Phone Jv Hutson MD Unavailable [phone] Maged Coughlin NP Primary Care Provider + [...] 2013. He has continued on aspirin for [id number] score 1- HTN. He will turn 65 next year which will result in a [id number] score of 2 at which time we [...] how all of these lifestyle modifications effect ocean transportation intermediary BP control. Patient stated understanding. Patient also [...] EDT) SODIUM 140 133 - 146 mmol/L [facility] CHLORIDE 104 96 - 108 mmol/L [facility] POTASSIUM 4.3 3.3 - 5.1 mmol/L [facility] CO2 25 21 - 35 mmol/L [facility] BUN 19 6 - 19 mg/dL [facility] CREATININE 1.30 0.5 - 1.5 mg/dL [facility] GLUCOSE 121(H) 70 - 99 mg/dL [facility] CALCIUM 9.5 8.4 - 10.3 mg/dL [facility] EGFR 57(L) >59 mL/min/1.7 3m2 [facility] Comment:Estimated glomerular filtration rate calculated using the CKD-EPI equation. ANION GAP 15 10 - 20 mmol/L [facility] Blood 04/12/2021 12:1 9 PM EDT 04/12/2021 12:26 PM EDT us Ijeoma Washburn PA-C LAB BLOOD ORDERABLES Final R esult [address] [address] from Last 3 Months or Most Recently Relevant to Health Maintenance Insurance [facility] [place] [place] [id number] [facility] [place] [address] [facility] [place] [place] [address] [facility] [place] [place] [address] [facility] Care Teams Aircraft Sales Representative Relationship Specialty Start Date End Date Maged Coughlin NP [address] [place] [address] [email or web address] PCP - General Family Medicine 01/12/20 Jv Hutson MD [email or web address] Historical LMR Provider 05/21/17 Additional Source Comments The information contained in this document represents components of the legal health record. It is not the complete legal health record.[facility]
[2025-03-06 15:26] VITALS: BP 122/90; PULSE 90; RESP 16; O2SAT 98; BMI 38.7
[2025-03-06 16:09] VITALS: BP 128/78
== END 2025-03-06 16:26 | disposition home or self-care (01) ==
LOC: HO.HMCC 15:23
PROVIDERS: PCP Nurse Practitioner Family; Visit Provider Nurse Practitioner Family
DX: C44.90 Unspecified malignant neoplasm of skin, unspecified (principal); E53.8 Deficiency of other specified B group vitamins; E55.9 Vitamin D deficiency, unspecified; E11.319 Type 2 diabetes mellitus with unspecified diabetic retinopathy without macular edema

== ENCOUNTER → 2025-03-06 15:22 | Outpatient (BNVA) | payer BC, SELFPAY | PROVIDERS: PCP Nurse Practitioner Family; Visit Provider Nurse Practitioner Family | DX: E11.40 Type 2 diabetes mellitus with diabetic neuropathy, unspecified (principal); E11.319 Type 2 diabetes mellitus with unspecified diabetic retinopathy without macular edema; E11.22 Type 2 diabetes mellitus with diabetic chronic kidney disease; D63.1 Anemia in chronic kidney disease; E66.9 Obesity, unspecified; E53.8 Deficiency of other specified B group vitamins; E55.9 Vitamin D deficiency, unspecified; C44.90 Unspecified malignant neoplasm of skin, unspecified; Z68.38 Body mass index [BMI] 38.0-38.9, adult | CPT/HCPCS: 96127 ==

== ENCOUNTER 2025-07-06 08:16 | Outpatient (REF) | payer BC, SELFPAY ==
--- OUTSIDE RECORDS SUMMARY | 2022-04-01 23:00 | XMS_ITS | Encounter Summary ---
Author Organization [facility] Address [address] [place] [id number] Phone Care Team Providers Care Business Process Lead Name Role Phone Jv Hutson MD Unavailable [phone] Maged Coughlin NP Primary Care Provider + Encounter Details Date Type Department Care Team (Late st Contact Info) Description 04/02/2022 Hospital Encounter [facility] [address] [place] [id number] Anatoliy Sanchez MD, MPH [address] [place] [id number] [email or web address] Social History Tobacco Use Types Packs/Day Years Used Date Smoking Tobacco: Never Smokeless Tobacco: Never Alcohol Use Standard Drinks/Week Comments Not Currently 0 (1 standard drink = 0.6 oz pur e alcohol) Education Answer Date Recorded Are you interested in more education? Not on tello e 11/28/2022 Are you concerned about learning? Not on file 11/28/2022 No 11/28/2022 No 11/28/2022 Digital Access Answer Date Recorded No 12/27/2022 No 12/27/2022 Reliable internet access at home? Not on file 12/27/2022 Device with a working camera? Not on file Sex and Gender Information Value Date Recorded Sex Assigned at Not on file Legal Sex Male 9:54 PM EDT Gender Identity Not on file Sexual Orientation Not on file documented as of this encounter Functional Status * Calculated C-SSRS Risk Score (Lifetime/Recent) Answer Date of Assessment Author No Risk Indicated 04/26/2022 11:51 AM EDT Cadence Arias RN * Babb Suicide Severity Rating Scale (Screener/Recent Self-Report) Question Answer Date of Assessment Author 1. Wish to be (Past 1 Month) No 04/26/2022 11:51 AM EDT Bill Kelly RN 2. Non-Specific Active Suicidal Thoughts (Past 1 Month) No 04/26/2022 11:51 AM EDT Bill Kelly RN 6. Suicidal Behavior (Lifetime) No 04/26/2022 11:51 AM EDT Bill Kelly RN documented as of this encounter Plan of Treatment Not on file documented as of this encounter Procedures Procedure Name Priority Date/Time Associated Diagnosis Comments MRI BRAIN OUTSIDE (NO INTERPRETATION) Routine 04/02/2022 12:00 AM EDT documented in this encounter Results * MRI Brain Outside (No Interpretation) (04/02/2022 12:00 AM EDT) Narrative [facility] - 04/26/2022 12:24 PM EDT This study is for PACS storage only and not for interpretation. us Anatoliy Sanchez MD, MPH [facility]G OUTSIDE IMAGING W/OUT INTERPRETATION Final Result [facility] documented in this encounter Visit Diagnoses Not on filedocumented in this encounter Care Teams Business Process Lead Relationship Specialty Start Date End Date Maged Coughlin NP [address] [facility] [place] [address] PCP - General Family Medicine 01/12/20 Jv Hutson MD [email or web address] LMR Provider 05/21/17 documented as of this encounter Additional Source Comments The information contained in this document represents components of the legal health record. It is not the complete legal health record.[facility]
--- OUTSIDE RECORDS SUMMARY | 2025-07-06 08:30 | XMS_ITS | Encounter Summary ---
Author Organization [facility] Address [address] [place] [address] Phone Care Team Providers Care Mining Captain Name Role Phone Jv Hutson MD Unavailable Maged Coughlin NP Primary Care Provider + Encounter Details Date Type Department Care Team (Late st Contact Info) Description 04/26/2022 Procedure Pass [facility] - MRI, [facility] [address] [place] [address] Social History Tobacco Use Types Packs/Day Years [...] on file documented as of this encounter Last Filed Vital Signs Vital Sign Reading Time Taken Comments Blood Pressure - - Pulse - - Temperature - - Respiratory Rate - - Oxygen Saturation - - Inhaled Oxygen Concentration - - Weight 106.6 kg (235 lb) 04/26/2022 2:47 PM EDT Height 170.2 cm (5' 7 ) 04/26/2022 2:47 PM EDT Body Mass Index 36.81 04/26/2022 2:47 PM EDT documented in this encounter Functional Status * Calculated C-SSRS Risk Score (Lifetime/Recent) Answer Date of Assessment Author No Risk Indicated 04/26/2022 11:51 AM EDT Cadence Arias RN * [place] Suicide Severity Rating Scale (Screener/Recent Self-Report) Question Answer Date of Assessment Author 1. Wish to be (Past 1 Month) No 04/26/2022 11:51 AM EDBill Lerner RN 2. Non-Specific Active Suicidal Thoughts (Past 1 Month) No 04/26/2022 11:51 AM HERLINDAT Bill Kelly RN 6. Suicidal Behavior (Lifetime) No 04/26/2022 11:51 AM EDT Bill Kelly RN documented as of this encounter Plan of Treatment Not on file documented as of this encounter Visit Diagnoses Not on filedocumented in this encounter Care Teams Mining Captain Relationship Specialty Start Date End Date Maged Coughlin NP [facility] [place] [address] PCP - General Family Medicine 01/12/20 Jv Hutson MD [email or web address] Historical LMR Provider 05/21/17 documented as of this encounter Additional Source Comments The information contained in this document represents components of the legal health record. It is not the complete legal health record.[facility]
--- OUTSIDE RECORDS SUMMARY | 2025-07-06 08:30 | XMS_ITS | Encounter Summary ---
Author Organization [facility] Address [address] [place] [address] Phone Care Team Providers Care Associate School Psychologist Name Role Phone Jv Hutson MD Unavailable [phone] Primary Care Provider + Encounter Details Date Type Department Care Team (Late st Contact Info) Description 12/12/2021 Procedure Pass [facility] [place] [address] Social History Tobacco Use Types Packs/Day Years Used Date Smoking Tobacco: Never Smokeless Tobacco: Never Sex and Gender Information Value Date Recorded Sex Assigned at Not on file Legal Sex Male 9:54 PM EDT Gender Identity Not on file Sexual Orientation Not on file documented as of this encounter Plan of Treatment Not on file documented as of this encounter Visit Diagnoses Not on filedocumented in this encounter Care Teams Associate School Psychologist Relationship Specialty Start Date End Date Maged Coughlin NP [facility] [address] PCP - General Family Medicine 01/12/20 Jv Hutson MD [email or web address] Historical LMR Provider 05/21/17 documented as of this encounter Additional Source Comments The information contained in this document represents components of the legal health record. It is not the complete legal health record.[facility]
--- OUTSIDE RECORDS SUMMARY | 2025-07-06 08:30 | XMS_ITS | Encounter Summary ---
Author Organization [facility] Address [address] [place] [address] Phone Care Team Providers Care Sight Effects Specialist Name Role Phone Jv Hutson MD Unavailable [phone] Maged Coughlin ASSISTANT PROFESSOR IN FAMILY STUDIES Primary Care Provider + Encounter Details Date Type Department Care Team (Late st Contact Info) Description 03/21/2022 Procedure Pass [facility], Ct Scan - [address] [address] Social History Tobacco Use Types Packs/Day Years [...] on filedocumented in this encounter Care Teams Sight Effects Specialist Relationship Specialty Start Date End Date Maged Coughlin NP [address] [place] [address] PCP - General Family Medicine 01/12/20 Jv Hutson MD [email or web address] Historical LMR Provider 05/21/17 documented as of this encounter Additional Source Comments The information contained in this document represents components of the legal health record. It is not the complete legal health record.[facility]
--- OUTSIDE RECORDS SUMMARY | 2025-07-06 08:30 | XMS_ITS | Encounter Summary ---
Author Organization [facility] Address [address] [place] [address] Phone Care Team Providers Care Regional Sales Consultant Name Role Phone vJ Hutson MD Unavailable [phone] Maged Coughlin NP Primary Care Provider + Encounter Details Date Type Department Care Team (Late st Contact Info) Description 04/26/2022 Ophth Exam [facility] Emergency Department [address] [place] [address] Teja Su MD [address] [place] [address] [address] [place] [address] [email or web address] Social History Tobacco Use Types Packs/Day Years [...] 11:51 AM EDT Cadence Arias RN * [place] Suicide Severity Rating Scale (Screener/Recent Self-Report) Question Answer Date of Assessment Author 1. Wish to be (Past 1 Month) No 04/26/2022 11:51 AM EDT Bill Kelly RN 2. Non-Specific Active Suicidal Thoughts (Past 1 Month) No 04/26/2022 11:51 AM Bill Houston RN 6. Suicidal Behavior (Lifetime) No 04/26/2022 11:51 AM Bill Houston RN documented as of this encounter Plan of Treatment Not on file documented as of this encounter Visit Diagnoses Not on filedocumented in this encounter Care Teams Regional Sales Consultant Relationship Specialty Start Date End Date Maged Coughlin NP [address] [facility] [place] [address] PCP - General Family Medicine 01/12/20 Jv Hutson MD [email or web address] Historical LMR Provider 05/21/17 documented as of this encounter Additional Source Comments The information contained in this document represents components of the legal health record. It is not the complete legal health record.[facility]
--- OUTSIDE RECORDS SUMMARY | 2025-07-06 08:30 | XMS_ITS | Clinical Summary ---
Author Organization [facility] Address [address] [facility] [address] [place] [address] Phone Care Team Providers Care Mva Reactor Operator Head Name Role Phone Jv Hutson MD Unavailable [phone] Maged Coughlin NP Primary Care Provider + [...] 2013. He has continued on aspirin for [id number] score 1- HTN. He will turn 65 next year which will result in a [id number]-LRFw score of 2 at which time we [...] how all of these lifestyle modifications effect long-term BP control. Patient stated understanding. Patient also [...] Last Done Comments Adult Td,Tdap Booster 1955 BLOOD PRESSURE 1955 LIPID PANEL 1955 DEPRESSION SCREENING 1967 HEPATITIS C SCREENING 12/27/1973 COLOGUARD 12/27/2000 COLONOSCOPY 12/27/2000 COLORECTAL CANCER SCREENING 12/27/2000 FIT TEST 12/27/2000 FOBT 12/27/2000 SIGMOIDOSCOPY 12/27/2000 VIRTUAL COLONOSCOPY 12/27/2000 ZOSTER VACCINES (1 of 2) 12/27/2005 PNEUMOCOCCAL VACCINES (50+ years) (2 of 2 - PCV) 11/28/2014 11/28/2013 CREATININE LEVEL 04/12/2022 04/12/2021, 02/26/2021 POTASSIUM LEVEL 04/12/2022 04/12/2021, 02/26/2021 INFLUENZA VACCINE (#1) 2025 COVID-19 VACCINE (2 - 2024-2 6 season) 2025 12/01/2020 RSV VACCINE (1 - 1-dose 75+ series) 12/27/2030 SMOKING STATUS SCREENING (On ce After 26 [...] Date/Time Associated Diagnosis Comments BASIC METABOLIC PANEL (BMP) Routine 04/12/2021 12:19 PM EDT Essential hypertension from Last 3 Months or Most Recently Relevant to Health Maintenance Results * (ABNORMAL) Basic metabolic panel (04/12/2021 12:19 PM EDT) SODIUM 140 133 - 146 mmol/L [facility] CHLORIDE 104 96 - 108 mmol/L [facility] POTASSIUM 4.3 3.3 - 5.1 mmol/L [facility] CO2 25 21 - 35 mmol/L [facility] BUN 19 6 - 19 mg/dL [facility] CREATININE 1.30 0.5 - 1.5 mg/dL [facility] GLUCOSE 121(H) 70 - 99 mg/dL [facility] CALCIUM 9.5 8.4 - 10.3 mg/dL [facility] EGFR 57(L) >59 mL/min/1.7 3m2 [facility] Comment:Estimated glomerular filtration rate calculated using the CKD-EPI equation. ANION GAP 15 10 - 20 mmol/L [facility] Blood 04/12/2021 12:1 9 PM EDT 04/12/2021 12:26 PM EDT us Ijeoma Washburn PA-C LAB BLOOD BKR ORDERABLES Fin al Result Performing Organization Address City/State/[facility] Co de Phone Number [facility] [address] [place] [address] from Last 3 Months or Most Recently Relevant to Health Maintenance Insurance [facility] [place] [address] [facility] [place] [address] [facility] Care Teams Mva Reactor Operator Head Relationship Specialty Start Date End Date Maged Coughlin NP [facility] [place] [address] PCP - General Family Medicine 01/12/20 Jv Hutson MD [email or web address] Historical LMR Provider 05/21/17 Additional Source Comments The information contained in this document represents components of the legal health record. It is not the complete legal health record.[facility]
[2025-07-06 10:28] LABS: MANUAL DIFF FLAG NO
[2025-07-06 10:40] LABS: Hematocrit 33.2 % (42.0-52.0); Hemoglobin 11.0 g/dl (14.0-18.0); Imm Gran Abs Auto 0.01 X10*3/uL (0.00-0.03); Imm Gran Pct Auto 0.2 % (0.0-0.4); Lymphocytes Absolute Auto 1.6 X10*3/uL (1.2-4.9); Mean Corpuscular HGB Conc 33.1 g/dl (31.0-36.0); Mean Corpuscular Hemoglobin 33.8 pg (27.0-33.0); Mean Corpuscular Volume 102.2 fL (80.0-98.0); NRBC Abs Auto 0.000 X10*3/uL (0.0-0.012); NRBC Pct Auto 0.0 /100WBC (0.0-0.2); Platelet Count 150 X10*3/uL (160-400); Red Blood Count 3.25 X10*6/uL (4.60-5.80); White Blood Count 4.5 X10*3/uL (4.8-10.8)
[2025-07-06 10:48] LABS: Appearance Urine Clear; Glucose Urine UA >=1000 mg/dL (Negative); PH 6.0 (5.0-9.0); Specific Gravity - Urine 1.025 (1.005-1.025); UMIC TRIGGER UA YES
[2025-07-06 10:51] LABS: Alanine Aminotransferase 27 U/L (0-40); Albumin Level 4.5 g/dL (3.5-5.0); Alkaline Phosphatase 52 U/L (39-117); Anion Gap 11 (12-20); Aspartate Amino Transferase 20 U/L (5-37); Blood Urea Nitrogen 34 mg/dL (9-16); Calcium 9.7 mg/dL (8.4-10.2); Carbon Dioxide 26 mmol/L (22-29); Chloride 109 mmol/L (96-108); Estimated Glomerular Filt Rate 31; Potassium 4.5 mmol/L (3.3-5.1); Sodium 141 mmol/L (135-145); Total Protein 6.9 g/dL (6.5-8.0)
[2025-07-06 10:56] LABS: Albumin Level 4.5 g/dL (3.5-5.0); Calcium 9.7 mg/dL (8.4-10.2); Magnesium 2.1 mg/dL (1.6-2.6)
[2025-07-06 11:17] LABS: Parathyroid Hormone Intact 48.7 pg/mL (8.7-77.1)
[2025-07-06 11:56] LABS: Microalbum/Creatinine Ratio Ur 9.0 ug/mg cr (<30); Total Protein Urine Random < 7 mg/dL (<12)
== END 2025-07-06 08:17 | disposition home or self-care (01) ==
LOC: HO.HMGCLDS 08:16
PROVIDERS: Absent Provider Internal Medicine Nephrology; PCP Nurse Practitioner Family; Visit Provider Nurse Practitioner Family
DX: I12.9 Hypertensive chronic kidney disease with stage 1 through stage 4 chronic kidney disease, or unspecified chronic kidney disease (principal); N18.32 Chronic kidney disease, stage 3b; E11.319 Type 2 diabetes mellitus with unspecified diabetic retinopathy without macular edema; N25.0 Renal osteodystrophy
CPT/HCPCS: 36415; 80053; 81001; 82040; 82043; 82306; 82310; 82570; 83036; 83735; 83970; 84100; 84156; 84443; 85025

== ENCOUNTER 2025-07-17 12:38 | Outpatient (AMB) | payer BC, SELFPAY ==
[2025-07-17 12:40] VITALS: BP 126/76; PULSE 87; RESP 17; TEMP 36.7; O2SAT 98; BMI 38.8
--- NOTE | 2025-07-17 12:40 | A.OFFPC_ITS ---
Vital Signs 07/17/25 12:40 Height 5 ft 7 in Weight 248 lb BMI 38.8 BP 126/76 Blood Pressure Location Lt brachial Position Sitting Respiration 17 Pulse 87 Pulse Source Pulse Oximeter Temp 98.1 F Temp Source Oral Pulse Oximetry (%) 98 Oxygen Delivery Method Room Air Intake Visit Reasons: DM followup Intake Note: Pt is here today for a follow up visit on DM. Allergies No Known Allergies Allergy (Verified 07/17/25 12:41) Medication List - Last Reconciled 07/17/25 by MONY BurrP- allopurinol 300 mg PO DAILY apixaban (Eliquis) 5 mg PO BID blood sugar diagnostic (OneTouch Ultra Test strips) BID brimonidine 0.2% drps ophthalmic (eye) cholecalciferol (vitamin D3) (Vitamin D3) 50 mcg PO DAILY dorzolamide 2% 1 drp ophthalmic-Right Q12H empagliflozin 25 mg PO DAILY hydralazine 50 mg PO TID 90 days hydrochlorothiazide 25 mg PO DAILY labetalol 200 mg (2 x 100 mg) PO BID 90 days lancets (OneTouch UltraSoft Lancets) BID testing lancets (OneTouch Delica Lancets) As directed latanoprost 0.005% drps ophthalmic (eye) lisinopril 40 mg PO BID OneTouch Ultra2 Meter (blood-glucose meter) BID testing NS pravastatin 40 mg PO DAILY sildenafil 100 mg PO DAILY PRN 10 days spironolactone 25 mg PO DAILY Tobacco use date assessed: 07/17/25 Fall risk assessment: No Falls in past year Last assessed Fall Risk: 07/17/25 Dental Screening Dental Screen Date: 03/06/25 HPI DM followup HPI Details Chief Complaint The patient presents for a follow-up visit for diabetes. History of Present Illness The patient is a 69-year-old male presenting for a follow-up visit for diabetes. 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 The patient follows up with an customer sales specialist multiple times a year. His medical history is significant for stage 3 chronic kidney disease, for which he sees a wet pour mixer regularly. He also has anemia, which is likely related to his kidney disease. His most recent hemoglobin A1c was 6.8%. The patient has been diagnosed with morbid obesity, and the importance of weight loss, portion control, and dietary choices has been reinforced. Additionally, he has neuropathy in his feet with a lack of sensation on the plantar aspects upon monofilament testing. He is aware of the signs and symptoms of hypoglycemia and how to correct it. B12: Hx of deficiency Social History - Functional Status: The patient is tech nically blind in both eyes and uses a cane to walk. - Nutrition: Has been counseled on the i mportance of portion sizes and dietary choices for weight loss. Health Maintenance - The patient follows up with an ophthal mologist multiple times a year for his eye conditions. - He is followed by a wet pour mixer on a regular basis for stage 3 chronic kidney disease. - Counseling on weight loss, portion siz es, and dietary habits has been provided to address morbid obesity. Review of Systems - Eyes: Reports blindness in both eyes. - Neurological: Reports neuropathy in fe et with lack of sensation. denies any cp, sob Physical Exam General: Cooperative, healthy appearing, comfortable, no acute distress and well developed, but morbidly obese Orientation: Patient oriented x3 Limitations: No limitations Head: Normal to inspection Ears: Hearing grossly normal bilaterally Nose: Normal external nose present Face and sinus: Normal facial exam Eyes: Blindness technically in both eyes Neck: Normal visual inspection and Yes full ROM Respiratory: Normal respiratory effort and able to speak in complete sentences. Clear to auscultation bilaterally Cardiovascular: Regular rate and rhythm. Normal S1 and S2 GI: Normal to inspection. Soft to palpation and nontender Skin: No rashes or lesions noted Neuro: Patient oriented x3, some neuropathy in feet with lack of sensation to the plantar aspect but not dorsal Extremities: Normal to inspection, walks with a cane Results - Labs: - Hemoglobin A1c: 6.8%. - Liver enzymes: Within normal limits. - Microalbumin: Within normal limits. Plan 1. Diabetes Mellitus With a recent hemoglobin A1c of 6.8%, the dose of Jardiance will be increased to 25 mg. The patient confirmed understanding of the signs, symptoms, and management of hypoglycemia. 2. Chronic Kidney Disease, Stage 3 The patient will continue to follow up with nephrology for management of his stage 3 chronic kidney disease. Kidney function labs will be repeated in three to four weeks to monitor the effects of the Jardiance dose increase. 3. Morbid Obesity The importance of weight loss, managing portion sizes, and making healthy food choices was reinforced. 4. Diabetic Retinopathy And Shay Heredi tary Optic Neuropathy The patient will continue his routine follow-ups with an clinical data analyst for his retinopathy and optic neuropathy. 5. Anemia The patient's anemia, likely related to his chronic kidney disease, will continue to be monitored by his nephrology team. 6. b12 def: will recheck levels Discussion Notes I discussed increasing his Jardiance to 25 mg to better control his diabetes, as his A1c is 6.8. I advised him that we will need to recheck his kidney function in about 3-4 weeks to monitor for any changes. He confirmed he understands what hypoglycemia feels like and how to treat it. I also reinforced the importance of weight loss through portion control and mindful eating to help manage his morbid obesity. He will continue his regular specialist appointments with nephrology and ophthalmology. Patient Instructions - Increase your Jardiance medication to 25 mg daily. - Return to the lab in 3 to 4 weeks to h ave your kidney function checked. - Continue to monitor for signs of low b lood sugar (hypoglycemia) and treat it if it occurs. - Keep working on weight loss by managin g your portion sizes and being mindful of what you eat. - Continue your regular appointments wit h your customer sales specialist and kidney specialist. [facility] Medical History Renal osteodystrophy Squamous cell carcinoma in situ Blindness of both eyes LHON (Shay hereditary optic neuropathy) Pituitary abnormality CKD (chronic kidney disease) stage 3, GFR 30-59 ml/min Sleep apnea Arthritis Afib Headache Surgical History History of surgery History of knee surgery Family History Father Lymphoma Mother No problems noted. Social History Housing: House Alcohol intake: never Patient Tobacco Use Status: Never used Tobacco e-Cigarette/Vaping Use: Never Used Second Hand Smoke Exposure: No service: No Current occupational status: retired Current occupational exposures/hazards: No Cognitive needs: No Hearing needs: No Vision needs: No Questionnaire Thrive Questionnaire Date Thrive assessed: 12/23/23 What is your living situation today?: I choose not to answer this question Do you have trouble paying for medicines?: Yes Do you have trouble getting transportation to medical appointments?: Yes Do you have trouble paying your heating and electricity bill?: Yes Do you have trouble with day-to-day activities such as bathing, preparing meals, shopping, managing finances, etc.?: Yes Are you currently unemployed and looking for a job?: No THRIVE Score: 2 AUDIT C Alcohol Use Questionnaire (AUDIT-C) 1. How often do you have a drink containing alcohol?: Never 2. How many drinks containing alcohol do you have on a typical day when you are drinking?: 3 or 4 Total Score: 1 LAXMI-7 AMB Questionnaire LAXMI-7 Date LAXMI - 7 assessed: 12/23/23 Trouble relaxin = Not at all Source: Developed by Drs. Mariano Johns, Zahira Gutierrez, Elvis Flores and colleagues, with an educational soha from [email or web address]. Physical exam (Primary Care) Vital Signs: Last Vital Signs Temp 98.1 F 07/17/25 12:40 Pulse 87 07/17/25 12:40 Resp 17 07/17/25 12:40 BP 126/76 07/17/25 12:40 Pulse Ox 98 07/17/25 12:40 Oxygen Delivery Method Room Air 07/17/25 12:40 BMI result Body Mass Index 38.8 Tobacco/Smoking Status: Tobacco use Status Tobacco use date assessed 07/17/25 07/17/25 12:47 Patient Tobacco Use Status Never used Tobacco 07/17/25 12:40 e-Cigarette/Vaping Use Never Used 07/17/25 12:40 Thrive Assessment: Date of Thrive Assessment Date Thrive assessed 12/23/23 07/17/25 12:40 Coding Level of Care Code Est Pt Level 3 (78130) Diagnoses CKD (chronic kidney disease) stage 3, GFR 30-59 ml/min N18.30 Diabetes with retinopathy E11.319 B12 deficiency E53.8 Prostate cancer screening Z12.5 Assessment & Plan Assessment & Plan (1) CKD (chronic kidney disease) stage 3, GFR 30-59 ml/min: Code(s): N18.30 - Chronic kidney disease, stage 3 unspecified Category: Medical (2) Diabetes with retinopathy: Code(s): E11.319 - Type 2 diabetes mellitus with unspecified diabetic retinopathy without macular edema Category: Medical (3) B12 deficiency: Code(s): E53.8 - Deficiency of other specified B group vitamins Category: Medical (4) Prostate cancer screening: Code(s): Z12.5 - Encounter for screening for malignant neoplasm of prostate Category: Medical Plan . Orders: Orders Vitamin B12 and Folate Today E11.319 - Type 2 diabetes mellitus with unspecified diabetic retinopathy without macular edema, E53.8 - Deficiency of other specified B group vitamins Intrinsic Factor Antibodies Today E11.319 - Type 2 diabetes mellitus with unspecified diabetic retinopathy without macular edema, E53.8 - Deficiency of other specified B group vitamins Parietal Cell Antibody Today E11.319 - Type 2 diabetes mellitus with unspecified diabetic retinopathy without macular edema, E53.8 - Deficiency of other specified B group vitamins Prostate Specific Antigen Scr Today Z12.5 - Encounter for screening for malignant neoplasm of prostate Comprehensive Met. Panel Today E11.319 - Type 2 diabetes mellitus with unspecified diabetic retinopathy without macular edema, N18.30 - Chronic kidney disease, stage 3 unspecified Medications: Changed From empagliflozin (Jardiance) 10 mg PO DAILY 90 tabs 1RF To empagliflozin 25 mg PO DAILY 30 tabs 3RF
== END 2025-07-17 13:34 | disposition home or self-care (01) ==
LOC: HO.HMCC 12:39
PROVIDERS: PCP Nurse Practitioner Family; Visit Provider Nurse Practitioner Family
DX: N18.30 Chronic kidney disease, stage 3 unspecified (principal); E11.319 Type 2 diabetes mellitus with unspecified diabetic retinopathy without macular edema; E53.8 Deficiency of other specified B group vitamins; Z12.5 Encounter for screening for malignant neoplasm of prostate